=== PATIENT | male | born 1930 | race Caucasian/White ===

== ENCOUNTER → 2016-03-22 | Outpatient (CLI) | payer BC ==
[~2016-03-22] MED LIST: AGG PO; ANT25 PO; CALC500C70 PO; CHOL1000 PO; CHOL100010 PO; CLOP1TAB15 PO; COEN100C11 PO; COEN1CAP46 PO; CYAN100020 PO; DLC5 PO; EFIN1SOL TOP; FLV1 PO; FOLI1TAB7 PO; MRLP17 PO; OMEG10007 PO; OXYC-57 PO; PRAV10TA39 PO; PRAV20TA PO; PRAV20TA2 PO; TADA10TA PO; VTMB12 PO; ZFRI4 IV; [UNRECOGNIZED DRUG - CODE] IV
[2016-03-22 13:13] VITALS: BP 106/56; PULSE 53; TEMP 36.4; O2SAT 95
--- NOTE | 2016-03-22 16:01 | Radiation Oncology Follow-Up ---
Radiation Oncology Follow-Up Date of Visit Mar 22, 2016. Reason For Visit 6 month follow-up Radiation Completion Date finished IMRT / IGRT 12-15-2013 Diagnosis (1) Prostate cancer Status: Resolved Onset Date: 04/28/2013 Location: right lobe of the prostate Histology Subtype: adenocarcinoma Stage: ll (A biopsy stage) Permanent Comment: Finding of abnormal digital rectal exam, nodule on the right Active surveillance with slowly rising PSA Status post ultrasound-guided biopsy revealing adenocarcinoma Kelly 3+3 and 3+4 Hormonal suppression four-month injection given Status post completion of radiation therapy with IMRT/IGRT completed 12/15/2013 Last Edited By: Blanche Dhaliwal on July 16, 2014 13:14 History of Present Illness Mr. Tomas is a 85-year-old gentleman who had been under the care of Dr. Choi. Digital rectal exam has shown a palpable abnormality in the right side of the prostate. PSAs have been taken in the past. We have a PSA report from January 03, 2012 elevated at 5.43. This was repeated on July 01, 2012 and remained elevated at 4.76. The patient was treated with a course of prophylactic antibiotics and did respond with his PSA on July 11, 2012 decreasing to 3.61. This was repeated on October 13, 2012 at 3.78. The patient chose to continue with active surveillance. On January 27, 2013, however, a repeat PSA was increased to 5.52. With that subsequent rise, the patient was seen by Dr. Drew on March 25, 2013. His examination confirmed a nodule in the right lobe of the prostate. Because of these findings, a prostate biopsy was scheduled and carried out. On April 28, 2013 the patient underwent ultrasound-guided biopsies. Two biopsies were taken from the left and right base, left and right mid, and right apex with one biopsy from the left apex, left anterior, and right anterior. His estimated prostate volume was 40 grams. Biopsies from the left base, left mid, left apex, and left anterior were all benign. Biopsies from the right base were positive in 2/2 biopsies with Kelly Grade 3 + 4 involving 20% and 10% of the core tissue sample respectfully with a Kelly pattern 4 representing 5% of the total tumor volume. No perineural invasion was identified. Two of two biopsies from the right mid gland revealed an adenocarcinoma, Kelly Grade 3 + 4 involving 25% and 5% of the core tissue samples respectfully. The Kelly pattern 4 component was 5% with no perineural invasion identified. Two of two biopsies from the right apex revealed an adenocarcinoma, Kelly Grade 3 + 3 involving 20% and 5% of the core tissue samples respectfully with no perineural invasion identified. The right anterior biopsy was negative. A total of 6/13 biopsies were positive. Case [id number]. The patient returned to discuss these findings with Dr. Drew on May 05, 2013. Dr. Drew discussed potential treatment options. All options were reviewed And ultimately he made the decision to undergo treatment with IMRT/IGRT. There had been discussion of a protocol study but he did not qualify due to his inability to undergo a seed implant. He is on an aspirin daily and this could not be discontinued in order to have the implant. He therefore completed treatment with IMRT/IGRT. Interim History Past 6 months he developed problem with recurrent rectal bleeding. He was evaluated with a colonoscopy 06/28/2015. 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 On 2015 he underwent a resection of the terminal ileum as well as a right hemicolectomy. This showed a tubulovillous adenoma. This was benign. Specimen [id number]. He has continued to have occasional mild intermittent rectal bleeding. Bowel movements occur 3-4 times per day. He does have urgency of bowel movements. Overall he feels improved in regards to his energy levels since undergoing the surgery. He completed an AUA score sheet and gave a score of 6 today. He does not require any medication to help with urination. He does have erectile dysfunction and was given Cialis for daily use by Dr. Colmenares. He stated this is helping with the erectile dysfunction. His PSAs were reviewed. The PSA 06/30/2015 that was 0.116. He the PSA 2015 and that was 0.096. Allergies Coded Allergies: Simvastatin (Unverified Allergy, Unknown, MAJOR CRAMPING, 09/20/15) Rosuvastatin (Verified Adverse Reaction, Severe, SPASMS,CRAMPING,ALTERED MENTAL STATUS, 09/20/15) Aspirin (Verified Adverse Reaction, Mild, UNCOATED FULL-STR ASA-GI UPSET, 09/20/15) Home Medications Scheduled Calcium/Vitamin D (Os-Kapil 500 Plus D), 1 TAB PO QAM Cholecalciferol (Vitamin D), 2,000 INTER.UNIT PO QPM Clopidogrel (Plavix), 75 MG PO QAM Coenzyme Q10 (Ubidecarenone) (Coq-10 100 mg), 100 MG PO QPM Cyanocobalamin (Vitamin B12), 1 TAB PO QPM Efinaconazole (Jublia), 1 DOSE TOP PRN Fish Oil ([place]-3), 1 CAP PO QPM Folic Acid (Folvite *), 1 MG PO BID Pravastatin (Pravachol ), 20 MG PO Q2D Tadalafil (Cialis), 20 MG PO UD Review of Systems Gastrointestinal: Symptoms: Rectal Bleeding GI Comments: rectal bleeding every 2 - 3 days Oral: Symptoms: No Problems Respiratory: Symptoms: WNL Urinary: Symptoms: Nocturia Comments: nocturia times 1 - 2 , urgency Skin: Symptoms: No Problems Physical Exam Vital Signs Date Time Temp Pulse Resp B/P Pulse Ox O2 Delivery O2 Flow Rate FiO2 03/22/16 13:13 36.4 53 18 106/56 95 Pain: Side: Bilateral Patient Pain Scale: 0 - 10 Initial Pain Intensity: 0.0 Fatigue: None General Appearance: no apparent distress Eyes: normal inspection, EOMI ENT: normal ENT inspection, hearing grossly normal Neck: no adenopathy Respiratory/Chest: lungs clear, no respiratory distress, no accessory muscle use Cardiovascular: regular rate, rhythm, no gallop, no murmur Abdomen: normal bowel sounds, non tender, soft Anal / Rectum: Rectal examination reveals normal sphincter tone. There are external and internal hemorrhoids. There is no blood seen on the examination finger. There are no rectal masses no rectal bleeding. Extremities: no pedal edema Neurologic/Psychiatric: no motor/sensory deficits, alert, normal mood/affect Skin: warm/dry Laboratory Studies Test 02/14/16 08:25 Sodium Level 143 mmol/L (136-145) Potassium Level 4.2 mmol/L (3.5-5.1) Chloride Level 107 mmol/L (98-107) Carbon Dioxide Level 29 mmol/L (21-32) Anion Gap 7.0 mmol/L (3-11) Blood Urea Nitrogen 19 mg/dl (7-18) Creatinine 1.30 mg/dl (0.60-1.40) Estimated GFR () 58.5 Estimated GFR (Non- 50.5 BUN/Creatinine Ratio 14.9 (10-20) Random Glucose 99 mg/dl (70-99) Calcium Level 8.5 mg/dl (8.5-10.1) Total Bilirubin 0.7 mg/dl (0.2-1) Aspartate Amino Transferase (AST) 20 U/L (15-37) Alanine Aminotransferase (ALT) 22 U/L (12-78) Alkaline Phosphatase 63 U/L (45-117) Total Protein 6.4 gm/dl (6.4-8.2) Albumin 3.3 gm/dl (3.4-5.0) Globulin 3.1 gm/dl (2.5-4.0) Albumin/Globulin Ratio 1.1 (0.9-2) Triglycerides Level 98 mg/dl (0-150) Cholesterol Level 148 mg/dl (0-200) HDL Cholesterol 57 mg/dl LDL Cholesterol, Calculated 71 mg/dl VLDL Cholesterol, Calculated 20 mg/dl Cholesterol/HDL Ratio 2.6 Prostate Specific Antigen 0.096 ng/ml (0.000-4.000) Additional Studies The colonoscopy that was performed in June was reviewed with the patient and pictures were shown of the areas of radiation proctitis. Assessment & Plan Plan: We discussed options of treatment for the radiation proctitis. I've asked him first to take Metamucil on a regular basis to help prevent irritation to the areas of telangiectasis. He also should avoid seeds the diet and possibly nuts. He does not feel that currently he needs to to be referred for treatment to the radiation proctitis. We also discussed that should he have increased bleeding and urgency we could treat him with cortisone enemas. We also discussed that patients can be treated with argon laser therapy. He would like to do more research into consideration of these other modalities of treatment. Continue regular follow-up with Dr. Colmenares. He'll be seeing him in 6 months with a recheck PSA. Total Time In Follow-Up I spent 20 minutes speaking to the patient performing examination. I spent 15 minutes reviewing information in completing this note. Copy To Rosalba Graham DO; Raheem Colmenares M.D.; José Miguel Reza M.D.
== END | disposition home or self-care (01) ==
LOC: C.ONC 12:57
PROVIDERS: ATTEND Radiology Radiation Oncology
DX: Z08 Encounter for follow-up examination after completed treatment for malignant neoplasm (principal); Z92.3 Personal history of irradiation; Z85.46 Personal history of malignant neoplasm of prostate

== ENCOUNTER → 2016-04-05 | Outpatient (CLI) | payer BC ==
[~2016-04-05] MED LIST changes: -OXYC-57 PO; -PRAV10TA39 PO
[2016-04-05 11:58] LABS: URINE APPEARANCE CLEAR (CLEAR); URINE BILIRUBIN NEG (NEG); URINE COLOR YELLOW; URINE NITRITE NEG (NEG); URINE SPECIFIC GRAVITY 1.018 (1.000-1.030); UROBILINOGEN NEG (NEG)
[2016-04-05 12:11] LABS: MANUAL MICROSCOPIC REQUIRED? NO; REVIEW REQ? NO
== END | disposition home or self-care (01) ==
LOC: C.LABSPEC 11:09
PROVIDERS: ATTEND Family Medicine
DX: R86.8 Other abnormal findings in specimens from male genital organs (principal)

== ENCOUNTER → 2016-08-09 | Outpatient (CLI) | payer BC | END | disposition home or self-care (01) | LOC: C.LABBC 09:05 | PROVIDERS: ATTEND Urology | DX: C61 Malignant neoplasm of prostate (principal); N52.9 Male erectile dysfunction, unspecified ==

== ENCOUNTER → 2016-08-29 | Day surgery (SDC) | payer BC ==
[2016-08-17 09:12] VITALS: Ht 168.9 cm; Wt 72.7 kg
[~2016-08-29] VITALS: Ht 168.9 cm; Wt 72.7 kg
[~2016-08-29] MED LIST changes: -CHOL100010 PO; +GLYCOPYRROLATE INJ 0.2 MG/ML VIAL ONE; +PROPOFOL IV EMULSION 10 MG/ML 20 ML VIAL IV ONE; +SODIUM CHLORIDE 0.9% 500ML 500 ML IV ONE
--- NOTE | 2016-08-29 15:43 | Endo History and Physical ---
History & Physical Date of Service: Aug 29, 2016. Chief Complaint: History of tubular adenoma, Referring Physician: Rosalba Carnes History of Present Illness 85 yo CM who presents for colonoscopy secondary to history of colon polyps. Past Medical History Angioplasty/Stent, Arthritis, Male Genitourinary Prob., [place] Past Surgical History Hx Cardiac Surgery: Yes (HEART CATH-2 STENTS PLACED) Hx Internal Defibrillator: No Hx Pacemaker: No Hx Abdominal Surgery: Yes (APPY, COLON RESECTION) Hx of Implantable Prosthesis: No Hx Post-Op Nausea and Vomiting: No Hx Cancer Surgery: No ( ) Hx Thoracic Surgery: No Hx Orthopedic: Yes (L SHOULDER REPAIR, RT RCR, RT KNEE SURG X3, RT TKA) Hx Urinary Tract Surgery: No Family History None Social History Smoking Status: Never Smoker Hx Substance Use: No Hx Alcohol Use: Yes (1 GLASS OF WINE DAILY) Allergies Coded Allergies: Simvastatin (Verified Allergy, Unknown, MAJOR CRAMPING, 08/29/16) Rosuvastatin (Verified Adverse Reaction, Severe, SPASMS,CRAMPING,ALTERED MENTAL STATUS, 08/17/16) Aspirin (Verified Adverse Reaction, Mild, UNCOATED FULL-STR ASA-GI UPSET, 08/17/16) Current Medications Reported Home Medications Medications Dose Route/Sig Max Daily Dose Days Date Category Vitamin D3 (Cholecalciferol) 1,000 Unit Tab 1 Tab PO QPM 90 08/17/16 Reported Cialis (Tadalafil) 10 Mg Tab 20 Mg PO UD 03/22/16 Reported Pravachol (Pravastatin Sodium) 20 Mg Tab 20 Mg PO Q2D 03/22/16 Reported Jublia (Efinaconazole) 10 % Veronica 1 Dose TOP PRN 08/19/15 Reported Vitamin B12 (Cyanocobalamin) 1,000 Mcg Tab 1 Tab PO QPM 06/28/15 Reported Coq-10 100 mg (Coenzyme Q10 (Ubidecarenone)) 1 Cap Cap 100 Mg PO QPM 04/16/14 Reported [place]-3 (Fish Oil) 1 Ea Cap 1 Cap PO QPM 04/16/14 Reported Os-Kapil 500 Plus D (Calcium/Vitamin D) Tab 1 Tab PO QAM 04/16/14 Reported Folvite * (Folic Acid) 1 Mg Tab 1 Mg PO BID 09/23/09 Reported Plavix (Clopidogrel Bisulfate) 75 Mg Tab 75 Mg PO QAM 09/23/09 Reported Vital Signs Weight (Kilograms): 72.73 Height (Feet): 5 Height (Inches): 6.5 Date Time Temp Pulse Resp B/P (MAP) Pulse Ox O2 Delivery O2 Flow Rate FiO2 08/29/16 15:06 36.6 63 16 143/67 (92) 98 Room Air Physical Exam General Appearance: WD/WN, no apparent distress Respiratory/Chest: Auscultation: breath sounds normal Cardiovascular: Heart Auscultation: RRR Abdomen: Bowel Sounds: normal Inspection & Palpation: soft, non-distended, no tenderness, guarding & rebound Assessment and Plan Assessment: 85 yo CM who presents for colonoscopy secondary to history of colon polyps. Plan: Proceed with colonoscopy.
--- NOTE | 2016-08-29 16:03 | Discharge Instructions ---
Endoscopy Patient Instructions Date / Procedure(s) Performed Aug 29, 2016. Colonoscopy Allergy Information Coded Allergies: Simvastatin (Verified Allergy, Unknown, MAJOR CRAMPING, 08/29/16) Rosuvastatin (Verified Adverse Reaction, Severe, SPASMS,CRAMPING,ALTERED MENTAL STATUS, 08/17/16) Aspirin (Verified Adverse Reaction, Mild, UNCOATED FULL-STR ASA-GI UPSET, 08/17/16) Discharge Date / Findings Aug 29, 2016. Internal hemorrhoids Radiation proctitis Medication Instructions Stopped Medication(s): Plavix last 08/25 OK to resume all medications today as prescribed Medications Dose Route/Sig Max Daily Dose Days Date Category Vitamin D3 (Cholecalciferol) 1,000 Unit Tab 1 Tab PO QPM 90 08/17/16 Reported Cialis (Tadalafil) 10 Mg Tab 20 Mg PO UD 03/22/16 Reported Pravachol (Pravastatin Sodium) 20 Mg Tab 20 Mg PO Q2D 03/22/16 Reported Jublia (Efinaconazole) 10 % Veronica 1 Dose TOP PRN 08/19/15 Reported Vitamin B12 (Cyanocobalamin) 1,000 Mcg Tab 1 Tab PO QPM 06/28/15 Reported Coq-10 100 mg (Coenzyme Q10 (Ubidecarenone)) 1 Cap Cap 100 Mg PO QPM 04/16/14 Reported [place]-3 (Fish Oil) 1 Ea Cap 1 Cap PO QPM 04/16/14 Reported Os-Kapil 500 Plus D (Calcium/Vitamin D) Tab 1 Tab PO QAM 04/16/14 Reported Folvite * (Folic Acid) 1 Mg Tab 1 Mg PO BID 09/23/09 Reported Plavix (Clopidogrel Bisulfate) 75 Mg Tab 75 Mg PO QAM 09/23/09 Reported Provider Instructions Activity Restrictions - No exercising or heavy lifting for 24 hours. - Do not drink alcohol the day of the procedure. - Do not drive a car or operate machinery until the day after the procedure. - Do not make any important decisions or sign important papers in 24 hours after the procedure. Following Day: - Return to full activity which may include returning to work/school. Diet Start your diet with liquids and light foods (jello, soup, juice, toast). Then eat your usual diet if not nauseated. Treatment For Common After Affects For mild abdominal pain, bloating, or excessive gas: - Rest - Eat lightly - Lie on right side Follow-Up Information Follow-up with Rosalba Carnes as scheduled Anesthesia Information What You Should Know You have had a procedure that required some medicine to reduce anxiety and discomfort. This treatment is called moderate sedation. After receiving the treatment, you may be sleepy, but you will be able to breathe on your own. The effects of the treatment may last for several hours. Follow these instructions along with Activity/Diet recommendations noted above: * Do NOT do anything where dizziness or clumsiness would be dangerous. * Rest quietly at home today, then you can be up and about tomorrow. * Have a responsible person stay with you the rest of today. * You may have had an I.V. today. If so, you may take the dressing off later today. Recommendations Call your doctor if: * Trouble breathing * Continuous vomiting for more than 24 hours * Temperature above 101 degrees * Severe abdominal pain or bloating * Pain not relieved by pain medicine ordered * There is increased drainage or redness from any incision * A large amount of rectal bleeding greater than 2-3 tablespoons. (If you had a polyp/s removed or have hemorrhoids, a small amount of blood - from the rectum is to be expected.) * You have any unanswered questions or concerns. IN THE EVENT OF A SERIOUS EMERGENCY, GO TO THE NEAREST EMERGENCY ROOM Your discharge instructions were prepared by provider Red Thomas. Patient Instructions Signature Page Carlos Tomas Patient (or Guardian) Signature/Date: I have read and understand the instructions given to me by my caregivers. Caregiver/RN/Doctor Signature/Date: The above-named patient and/or guardian has received patient instructions on this date. + Original Patient Signature Page (only) stays with chart. Please make copy for patient.
--- NOTE | 2016-08-29 16:11 | Anesthesiology Progress Note ---
Anesthesia Post Op Note Date & Time Aug 29, 2016 at 16:11 Vital Signs Pain Intensity: 0 Vital Signs Past 12 Hours Date Time Temp Pulse Resp B/P (MAP) Pulse Ox O2 Delivery O2 Flow Rate FiO2 08/29/16 16:06 36.6 60 16 101/56 (71) 94 Room Air 08/29/16 15:06 36.6 63 16 143/67 (92) 98 Room Air Notes Mental Status: alert / awake / arousable, participated in evaluation Pt Amnestic to Procedure: Yes Nausea / Vomiting: adequately controlled Pain: adequately controlled Airway Patency, RR, SpO2: stable & adequate BP & HR: stable & adequate Hydration State: stable & adequate Anesthetic Complications: no major complications apparent
--- NOTE | 2016-08-29 16:12 | GI REPORT ---
Procedure Date: 08/29/2016 3:20 PM Procedure: Colonoscopy Indications: High risk colon cancer surveillance: Personal history of colonic polyps Medicines: Monitored Anesthesia Care Complications: No immediate complications. Estimated Blood Loss: Estimated blood loss: none. Procedure: Pre-Anesthesia Assessment: - Prior to the procedure, a History and Physical was performed, and patient medications and allergies were reviewed. The patient's tolerance of previous anesthesia was also reviewed. The risks and benefits of the procedure and the sedation options and risks were discussed with the patient. All questions were answered, and informed consent was obtained. Prior Anticoagulants: The patient has taken Plavix (clopidogrel), last dose was 4 days prior to procedure. ASA Grade Assessment: III - A patient with severe systemic disease. After reviewing the risks and benefits, the patient was deemed in satisfactory condition to undergo the procedure. After I obtained informed consent, the scope was passed under direct vision. Throughout the procedure, the patient's blood pressure, pulse, and oxygen saturations were monitored continuously. The Scope was introduced through the anus and advanced to the ileocolonic anastomosis. The colonoscopy was performed without difficulty. The patient tolerated the procedure well. The quality of the bowel preparation was good. The terminal ileum, ileocecal valve, appendiceal orifice, and rectum were photographed. Findings: There was evidence of a prior end-to-side ileo-colonic anastomosis in the cecum. This was patent and was characterized by healthy appearing mucosa. The anastomosis was traversed. Multiple small localized angiodysplastic lesions without bleeding were found in the rectum, consistent with radiation induced proctitis. Non-bleeding internal hemorrhoids were found during retroflexion. The hemorrhoids were small. Impression: - Patent end-to-side ileo-colonic anastomosis, characterized by healthy appearing mucosa. - Multiple non-bleeding colonic angiodysplastic lesions, consistent with radiation proctitis. - Non-bleeding internal hemorrhoids. - No specimens collected. Recommendation: - Resume previous diet. - Continue present medications. - Return to primary care physician as previously scheduled. Red Thomas DO 08/29/2016 4:12:14 PM This report has been signed electronically. Note Initiated On: 08/29/2016 3:20 PM I attest to the content of the Intraoperative Record and orders documented therein, exceptions below
[2016-08-29 16:36] VITALS: BP 125/67; PULSE 62; O2SAT 95
== END | disposition home or self-care (01) ==
LOC: C.GI 14:19
PROVIDERS: ATTEND Internal Medicine
DX: Z12.11 Encounter for screening for malignant neoplasm of colon (principal); Z86.010 Personal history of colon polyps; K55.20 Angiodysplasia of colon without hemorrhage; Z98.0 Intestinal bypass and anastomosis status; K64.8 Other hemorrhoids; I25.2 Old myocardial infarction; Z95.5 Presence of coronary angioplasty implant and graft; Z79.899 Other long term (current) drug therapy; Z79.02 Long term (current) use of antithrombotics/antiplatelets

== ENCOUNTER 2016-09-24 14:20 | Inpatient (IN) | payer BC, OTHER ==
[~2016-09-24] VITALS: Ht 167.6 cm; Wt 73.5 kg
[~2016-09-24 14:20] MED LIST changes: -AGG PO; -ANT25 PO; -COEN100C11 PO; -DLC5 PO; -FOLI1TAB7 PO; -GLYCOPYRROLATE INJ 0.2 MG/ML VIAL ONE; -MRLP17 PO; -PRAV20TA2 PO; -PROPOFOL IV EMULSION 10 MG/ML 20 ML VIAL IV ONE; -SODIUM CHLORIDE 0.9% 500ML 500 ML IV ONE; -VTMB12 PO; -ZFRI4 IV; -[UNRECOGNIZED DRUG - CODE] IV
--- NOTE | 2016-09-24 15:25 | EMERGENCY ROOM VISIT NOTE ---
History First contact with patient: 14:30 Chief Complaint: VERTIGO Stated Complaint: SLIGHT MARTINEZ, VERTIGO History of Present Illness The patient is a 86 year old male with hx OR s/p stenting LAD(2004)who presents to the Emergency Room with complaints of suspected vertigo. Last week, patient went to PCP for reji cerumen impaction. Attempt was made to irrigate but was unsuccessful so patient was sent to ENT who successfully irrigated both ears the following day and was placed on ofloxacin drops. 2 days ago, patient reported vertigo , described as sensation of room spinning, N/V diaphoresis, clammy feeling, and double vision. He denies MARTINEZ, numbness, weakness, tingling. Vertigo persisted into the next day, and patient went to [facility] where he was sent home on ondansetron for N/V which was helpful. He denies previous similar symptoms of vertigo. He denies hx of CVA. He denies any associated tinnitus, hearing loss. Review of Systems Pt denies headache, change in vision, fevers, chest pain, shortness of breath, diarrhea, pain with urination, and melena. Past Medical/Surgical History Medical Problems: (1) Colon polyp (2) Myocardial infarction (3) Prostate cancer Surgical Problems: (1) History of appendectomy Family History Heart disease Social History Smoking Status: Never Smoker Alcohol Use: occasionally Marital Status: Housing Status: lives with significant other Occupation Status: retired Current/Historical Medications Scheduled Calcium/Vitamin D (Os-Kapil 500 Plus D), 1 TAB PO QAM Cholecalciferol (Vitamin D3), 1,000 UNITS PO QPM Clopidogrel (Plavix), 75 MG PO QAM Coenzyme Q10 (Ubidecarenone) (Coq-10 100 mg), 100 MG PO QPM Cyanocobalamin (Vitamin B12), 1,000 MCG PO QPM Efinaconazole (Jublia), 1 DOSE TOP PRN Fish Oil ([place]-3), 1 CAP PO QPM Folic Acid (Folvite), 1 MG PO BID Pravastatin (Pravachol ), 20 MG PO Q2D Allergies Coded Allergies: Simvastatin (Verified Allergy, Unknown, MAJOR CRAMPING, 08/29/16) Rosuvastatin (Verified Adverse Reaction, Severe, SPASMS,CRAMPING,ALTERED MENTAL STATUS, 08/17/16) Aspirin (Verified Adverse Reaction, Mild, UNCOATED FULL-STR ASA-GI UPSET, 08/17/16) Physical Exam Vital Signs Date Time Temp Pulse Resp B/P (MAP) Pulse Ox O2 Delivery O2 Flow Rate FiO2 09/24/16 16:33 51 17 134/64 98 Room Air 09/24/16 15:50 47 09/24/16 14:26 36.7 63 20 131/76 94 Room Air Physical Exam GENERAL: alert, well appearing, well nourished, no distress, non-toxic EYE EXAM: normal conjunctiva, PERRL and EOM's grossly intact OROPHARYNX: no exudate, no erythema, lips, buccal mucosa, and tongue normal and mucous membranes are moist NECK: supple, no nuchal rigidity, no adenopathy, non-tender LUNGS: Clear to auscultation. Normal chest wall mechanics HEART: no murmurs, S1 normal and S2 normal ABDOMEN: abdomen soft, non-tender, normo-active bowel sounds, no masses, no rebound or guarding. BACK: Back is symmetrical on inspection and there is no deformity, no midline tenderness, no CVA tenderness. SKIN: no rashes and no bruising UPPER EXTREMITIES: upper extremities are grossly normal. LOWER EXTREMITIES: No pitting edema. NEUROLOGICAL: Gait: steady coordinated gait Rhomberg: negative Rapid alternating movements: normal Cranial nerves: II-XII intact cranial nerves II-XII intact. Sensation: intact and symmetric at upper and lower extremities bilaterally Strength: intact and symmetric at upper and lower extremities bilaterally Reflexes: Right Patella: 3+ (hyperactive without clonus). Left Patella: 3+ (hyperactive without clonus). Babinski: negative Keysha Hallpike Negative Medical Decision & Procedures Laboratory Results 09/24/16 15:07 Red Blood Count 4.80, Mean Corpuscular Volume 98.5, Mean Corpuscular Hemoglobin 34.2, Mean Corpuscular Hemoglobin Concent 34.7, Mean Platelet Volume 9.1, Neutrophils (%) (Auto) 75.2, Lymphocytes (%) (Auto) 15.2, Monocytes (%) (Auto) 8.6, Eosinophils (%) (Auto) 0.6, Basophils (%) (Auto) 0.2, Neutrophils # (Auto) 4.70, Lymphocytes # (Auto) 0.95, Monocytes # (Auto) 0.54, Eosinophils # (Auto) 0.04, Basophils # (Auto) 0.01 09/24/16 15:07 Test 09/24/16 15:07 White Blood Count 6.25 K/uL (4.8-10.8) Red Blood Count 4.80 M/uL (4.7-6.1) Hemoglobin 16.4 g/dL (14.0-18.0) Hematocrit 47.3 % (42-52) Mean Corpuscular Volume 98.5 fL (80-100) Mean Corpuscular Hemoglobin 34.2 pg (25-34) Mean Corpuscular Hemoglobin Concent 34.7 g/dl (32-36) Platelet Count 228 K/uL (130-400) Mean Platelet Volume 9.1 fL (7.4-10.4) Neutrophils (%) (Auto) 75.2 % Lymphocytes (%) (Auto) 15.2 % Monocytes (%) (Auto) 8.6 % Eosinophils (%) (Auto) 0.6 % Basophils (%) (Auto) 0.2 % Neutrophils # (Auto) 4.70 K/uL (1.4-6.5) Lymphocytes # (Auto) 0.95 K/uL (1.2-3.4) Monocytes # (Auto) 0.54 K/uL (0.11-0.59) Eosinophils # (Auto) 0.04 K/uL (0-0.5) Basophils # (Auto) 0.01 K/uL (0-0.2) RDW Standard Deviation 46.9 fL (36.4-46.3) RDW Coefficient of Variation 13.0 % (11.5-14.5) Immature Granulocyte % (Auto) 0.2 % Immature Granulocyte # (Auto) 0.01 K/uL (0.00-0.02) Anion Gap 6.0 mmol/L (3-11) Est Creatinine Clear Calc Drug Dose 35.4 ml/min Estimated GFR () 53.1 Estimated GFR (Non- 45.8 BUN/Creatinine Ratio 10.2 (10-20) Calcium Level 8.9 mg/dl (8.5-10.1) Total Bilirubin 0.7 mg/dl (0.2-1) Aspartate Amino Transf (AST/SGOT) 18 U/L (15-37) Alanine Aminotransferase (ALT/SGPT) 26 U/L (12-78) Alkaline Phosphatase 61 U/L (45-117) Total Protein 7.0 gm/dl (6.4-8.2) Albumin 3.7 gm/dl (3.4-5.0) Globulin 3.3 gm/dl (2.5-4.0) Albumin/Globulin Ratio 1.1 (0.9-2) Medical Decision This is an 86 yo M w/ hx of OR (2004), on Plavix presenting with 2 day Hx vertigo and N/V, double vision following irrigation for cerumen impaction , [place] p[place] neg. with CT head positive for L Cerebellar infarct. EKG: sinus bradycardia CT Head: 4.4 cm subacute Left Cerebellar infarct CBC: unremarkable BMP: unremarkable I discussed case with hospitalist, Dr. Zabala who agreed with admission. Impression Primary Impression: CVA (cerebral vascular accident) Additional Impression: Vertigo Departure Information Dispostion Home / Self-Care Condition GOOD Referrals Rafita Pastrana III, CRNP (PCP) Patient Instructions My [facility] Problem Qualifiers Primary Impression: CVA (cerebral vascular accident) Precerebral and cerebral artery: posterior cerebral artery Laterality of affected vessel: left
--- NOTE | 2016-09-24 15:29 | EMERGENCY ROOM VISIT NOTE ---
History Report prepared by Bear: Rivas Low Under the Supervision of: Dr. Patrick Blum M.D. First contact with patient: 14:30 Chief Complaint: VERTIGO Stated Complaint: SLIGHT MARTINEZ, VERTIGO History of Present Illness The patient is a 86 year old male who presents to the Emergency Room with complaints of persistent dizziness beginning two days ago. He believes he likely has vertigo. He was seen by his PCP last week and then by ENT for bilateral cerumen impactions. The patient describes his dizziness as "spinning" . He also complains of nausea, vomiting, and sweating. He has a history of similar symptoms many years ago. The patient denies any headache, chest pain or hearing changes. He was seen at [facility] yesterday and given nausea meds. He is on Plavix. The patient has a history of NV and states that his sweatiness reminded him of his previous NV. Source of History: patient Onset: Two days ago Quality: other (dizziness) Timing: other (persistent) Associated Symptoms: + nausea, + vomiting, No headache Note: The patient also complains of sweating. He denies any hearing changes. Review of Systems See HPI for pertinent positives & negatives. A total of 10 systems reviewed and were otherwise negative. Past Medical & Surgical Medical Problems: (1) Colon polyp (2) Myocardial infarction (3) Prostate cancer Surgical Problems: (1) History of appendectomy Family History Heart disease Social History Smoking Status: Never Smoker Alcohol Use: occasionally Marital Status: Housing Status: lives with significant other Occupation Status: retired Current/Historical Medications Scheduled Calcium/Vitamin D (Os-Kapil 500 Plus D), 1 TAB PO QAM Cholecalciferol (Vitamin D3), 1,000 UNITS PO QPM Clopidogrel (Plavix), 75 MG PO QAM Coenzyme Q10 (Ubidecarenone) (Coq-10 100 mg), 100 MG PO QPM Cyanocobalamin (Vitamin B12), 1,000 MCG PO QPM Efinaconazole (Jublia), 1 DOSE TOP PRN Fish Oil ([place]-3), 1 CAP PO QPM Folic Acid (Folvite), 1 MG PO BID Pravastatin (Pravachol ), 20 MG PO Q2D Allergies Coded Allergies: Simvastatin (Verified Allergy, Unknown, MAJOR CRAMPING, 08/29/16) Rosuvastatin (Verified Adverse Reaction, Severe, SPASMS,CRAMPING,ALTERED MENTAL STATUS, 08/17/16) Aspirin (Verified Adverse Reaction, Mild, UNCOATED FULL-STR ASA-GI UPSET, 08/17/16) Physical Exam Vital Signs Date Time Temp Pulse Resp B/P (MAP) Pulse Ox O2 Delivery O2 Flow Rate FiO2 09/24/16 15:50 47 09/24/16 14:26 36.7 63 20 131/76 94 Room Air Physical Exam GENERAL: Patient is in no acute distress. HEENT: No acute trauma, normocephalic atraumatic, mucous membranes moist, no nasal congestion, no scleral icterus. TMs clear bilaterally. NECK: No stridor, no adenopathy, no meningismus, trachea is midline. LUNGS: Clear to auscultation bilaterally, no wheeze, no rhonchi, breath sounds equal. HEART: Without murmurs gallops or rubs, regular rate and rhythm. ABDOMEN: Soft, nontender, bowel sounds positive, no hernias, no peritonitis. EXTREMITIES: No cyanosis or edema, full range of motion of all the joints without pain or difficulty, no signs for acute trauma. NEUROLOGIC: Oriented x 3, no acute motor or sensory deficits, no focal weakness. No pronator drift or cerebellar dysfunction. Normal gait. No speech slur or facial droop. SKIN: No rash, no jaundice, no diaphoresis. Medical Decision & Procedures ER Provider Diagnostic Interpretation: CT results as stated below per my review and radiologist interpretation: CT HEAD WITHOUT CONTRAST (CT) FINDINGS: There is a moderate to large subacute left cerebellar infarct. There is no midline shift. There is no acute hemorrhage. There are minimal white matter hypodensities likely on a small vessel basis. There is no evidence of pathologic ventricular dilatation. There is no evidence of acute sinusitis IMPRESSION: 4.4 cm subacute left cerebellar infarct. Electronically signed by: Trip Roach M.D. Laboratory Results 09/24/16 15:07 Red Blood Count 4.80, Mean Corpuscular Volume 98.5, Mean Corpuscular Hemoglobin 34.2, Mean Corpuscular Hemoglobin Concent 34.7, Mean Platelet Volume 9.1, Neutrophils (%) (Auto) 75.2, Lymphocytes (%) (Auto) 15.2, Monocytes (%) (Auto) 8.6, Eosinophils (%) (Auto) 0.6, Basophils (%) (Auto) 0.2, Neutrophils # (Auto) 4.70, Lymphocytes # (Auto) 0.95, Monocytes # (Auto) 0.54, Eosinophils # (Auto) 0.04, Basophils # (Auto) 0.01 09/24/16 15:07 Test 09/24/16 15:07 White Blood Count 6.25 K/uL (4.8-10.8) Red Blood Count 4.80 M/uL (4.7-6.1) Hemoglobin 16.4 g/dL (14.0-18.0) Hematocrit 47.3 % (42-52) Mean Corpuscular Volume 98.5 fL (80-100) Mean Corpuscular Hemoglobin 34.2 pg (25-34) Mean Corpuscular Hemoglobin Concent 34.7 g/dl (32-36) Platelet Count 228 K/uL (130-400) Mean Platelet Volume 9.1 fL (7.4-10.4) Neutrophils (%) (Auto) 75.2 % Lymphocytes (%) (Auto) 15.2 % Monocytes (%) (Auto) 8.6 % Eosinophils (%) (Auto) 0.6 % Basophils (%) (Auto) 0.2 % Neutrophils # (Auto) 4.70 K/uL (1.4-6.5) Lymphocytes # (Auto) 0.95 K/uL (1.2-3.4) Monocytes # (Auto) 0.54 K/uL (0.11-0.59) Eosinophils # (Auto) 0.04 K/uL (0-0.5) Basophils # (Auto) 0.01 K/uL (0-0.2) RDW Standard Deviation 46.9 fL (36.4-46.3) RDW Coefficient of Variation 13.0 % (11.5-14.5) Immature Granulocyte % (Auto) 0.2 % Immature Granulocyte # (Auto) 0.01 K/uL (0.00-0.02) Anion Gap 6.0 mmol/L (3-11) Est Creatinine Clear Calc Drug Dose 35.4 ml/min Estimated GFR () 53.1 Estimated GFR (Non- 45.8 BUN/Creatinine Ratio 10.2 (10-20) Calcium Level 8.9 mg/dl (8.5-10.1) Total Bilirubin 0.7 mg/dl (0.2-1) Aspartate Amino Transf (AST/SGOT) 18 U/L (15-37) Alanine Aminotransferase (ALT/SGPT) 26 U/L (12-78) Alkaline Phosphatase 61 U/L (45-117) Total Protein 7.0 gm/dl (6.4-8.2) Albumin 3.7 gm/dl (3.4-5.0) Globulin 3.3 gm/dl (2.5-4.0) Albumin/Globulin Ratio 1.1 (0.9-2) Laboratory results reviewed by me. ECG Indication: other (dizziness) Rate (beats per minute): 45 Rhythm: sinus bradycardia Findings: no acute ischemic change, no ectopy ED Course 1433: The patient was evaluated in room A2. A complete history and physical exam was performed. Medical Decision The patient is a 86 year old male who presents to the ED with complaints of dizziness. Differential diagnoses considered include vertigo, anemia, ICH, electrolyte imbalance, and CVA. Blood pressure screening: Patient was found to have a slightly elevated blood pressure due to circumstances. I do not believe that the patient requires hypertension monitoring. Medication Reconciliation: I attest that I have personally reviewed the patient' s current medication list. There is no leukocytosis or concerning anemia. No significant electrolyte abnormality, kidney failure or hepatitis. EKG shows a sinus bradycardia, no acute ischemia. Brain CT shows a subacute infarct to the cerebellar portion of the brain. No acute bleed or mass effect. The patient presents to the emergency room with dizziness/vertigo. On exam, there were no focal neurologic deficits. Brain imaging does suggest a subacute CVA. The patient is not a candidate for TPA, he is far out of the window. Admission/observation is warranted. We did speak to the case assistant and the on-call hospitalist. The patient is aware of his findings. Consults Time Called: 1553 Consulting Physician: Dr. Sagrario RODRIGUEZ Returned Call: [phone] Discussed the patient's case. The patient will be evaluated for further management. Impression Primary Impression: CVA (cerebral vascular accident) Scribe Attestation The scribe's documentation has been prepared under my direction and personally reviewed by me in its entirety. I confirm that the note above accurately reflects all work, treatment, procedures, and medical decision making performed by me. Departure Information Dispostion Being Evaluated By Hospitalist Referrals Rafita Pastrana III, CRNP (PCP) Patient Instructions My [facility] Stroke History Time Last Known Well two days ago Stroke t-PA Criteria Reviewed Does NOT meet criteria for t-PA Reason t-PA Not Given Contraindicated
[2016-09-24 15:37] LABS: BASO % 0.2 %; BASO ABS # 0.01 K/uL (0-0.2); COMPLETE YES; EOS % 0.6 %; HEMATOCRIT 47.3 % (42-52); IG% 0.2 %; LYMPH % 15.2 %; LYMPH ABS # 0.95 K/uL (1.2-3.4); MEAN CELL VOLUME 98.5 fL (80-100); MEAN CORPUSCULAR HEMOGLOBIN 34.2 pg (25-34); MEAN CORPUSCULAR HGB CONC 34.7 g/dl (32-36); MEAN PLATELET VOLUME 9.1 fL (7.4-10.4); MONO % 8.6 %; NEUT % 75.2 %; PLATELET COUNT 228 K/uL (130-400); WHITE BLOOD COUNT 6.25 K/uL (4.8-10.8)
--- NOTE | 2016-09-24 15:39 | DIAGNOSTIC IMAGING REPORT ---
CT HEAD WITHOUT CONTRAST (CT) CLINICAL HISTORY: vertigo COMPARISON STUDY: 05/06/2014 TECHNIQUE: Axial CT of the brain is performed from the vertex to the skull base. IV contrast was not administered for this examination. CT DOSE: 1600.80 mGycm FINDINGS: There is a moderate to large subacute left cerebellar infarct. There is no midline shift. There is no acute hemorrhage. There are minimal white matter hypodensities likely on a small vessel basis. There is no evidence of pathologic ventricular dilatation. There is no evidence of acute sinusitis IMPRESSION: 4.4 cm subacute left cerebellar infarct. Electronically signed by: Trip Roach M.D. 09/24/2016 3:38 PM Dictated Date/Time: 09/24/2016 3:36 PM
[2016-09-24 15:48] LABS: BUN/CREATININE RATIO 10.2 (10-20); CALCIUM 8.9 mg/dl (8.5-10.1); CREATININE 1.4 mg/dl (0.60-1.40); POTASSIUM 4.1 mmol/L (3.5-5.1)
[2016-09-24 15:50] LABS: ALB/GLOB RATIO 1.1 (0.9-2)
[2016-09-24] MEDS ORDERED: FOLI1TAB7 PO (16:04)
--- NOTE | 2016-09-24 17:24 | History and Physical ---
History & Physical Date & Time of Service: Sep 24, 2016 at 17:17 Chief Complaint: Slight Martinez, Vertigo Primary Care Physician: Rafita Pastrana III, CRNP History of Present Illness Source: patient This is a 86 yo M with PMHx of CAD s/p MT, prostate cancer s/p XRT x 2 cycles in 2013 s/p Lupron therapy, radiation prostatitis, status post R radical colectomy with with ileocecal anastomosis for adhesions, and tubulovillous adenoma of the colon, radiation proctitis and hyperhomocystinemia who presents to the ED found to have a left cerebellar subacute infarct. The patient notes that approximately one week ago had a right ear fullness for which he saw his PCP, and was found to have cerumen impaction which was irrigated in the office. The patient continued to have aural fullness so was referred to ENT where he underwent cerumen removal via suction. He reports that they noted some possible trauma to the eardrum. On Saturday the patient started to feel ill, and thought that he had food poisoning as he was feeling nauseous and vomited. He also experienced a 30 minutes of bilateral blurred vision, which then resolved. He denies double vision or loss of a visual field. He notes that when walking there was a "left-sided pull", and felt motion sick when he attempted to walk. He remained in bed and did not seek medical attention at this time. On Saturday morning patient reports his balance and ability to walk straight was improved, he had no blurred vision, but only felt minimally better. He presented to a [facility] and was referred to the ER. He drove himself to the ER today as his balance was not affected. The last time the patient Plavix was on Saturday. He notes that he takes pravastatin every other day due to severe muscle cramping. CT was completed in the ER showing a 4.4 cm subacute cerebellar infarct. His vital signs are stable with blood pressure 134/64, heart rate = 51, afebrile. Labs are WNL. Past Medical/Surgical History Medical Problems: (1) Myocardial infarction Status: Resolved Left subacute cerebellar infarct Right radical colectomy and leocecal anastomosis Tubulovillous adenoma (2) Prostate cancer Permanent Comment: Finding of abnormal digital rectal exam, nodule on the right Active surveillance with slowly rising PSA Status post ultrasound-guided biopsy revealing adenocarcinoma Kelly 3+3 and 3+4 Hormonal suppression four-month injection given Status post completion of radiation therapy with IMRT/IGRT completed 12/15/2013 Status: Resolved Surgical Problems: (1) History of appendectomy Status: Resolved Family History Heart disease Social History Smoking Status: Never Smoker Smokeless Tobacco Use: Yes Alcohol Use: none Marital Status: Housing status: lives with family Occupational Status: retired Immunizations History of Influenza Vaccine: Yes History of Tetanus Vaccine?: Yes History of Pneumococcal: No History of Hepatitis B Vaccine: Yes Multi-Drug Resistant Organisms History of MDRO: No Allergies Coded Allergies: Simvastatin (Verified Allergy, Unknown, MAJOR CRAMPING, 08/29/16) Rosuvastatin (Verified Adverse Reaction, Severe, SPASMS,CRAMPING,ALTERED MENTAL STATUS, 08/17/16) Aspirin (Verified Adverse Reaction, Mild, UNCOATED FULL-STR ASA-GI UPSET, 08/17/16) Home Medications Scheduled Calcium/Vitamin D (Os-Kapil 500 Plus D), 1 TAB PO QAM Cholecalciferol (Vitamin D3), 1,000 UNITS PO QPM Clopidogrel (Plavix), 75 MG PO QAM Coenzyme Q10 (Ubidecarenone) (Coq-10 100 mg), 100 MG PO QPM Cyanocobalamin (Vitamin B12), 1,000 MCG PO QPM Efinaconazole (Jublia), 1 DOSE TOP PRN Fish Oil (Clarkridge-3), 1 CAP PO QPM Folic Acid (Folvite), 1 MG PO BID Pravastatin (Pravachol ), 20 MG PO Q2D Review of Systems Constitutional: No fever, sweats or chills Eyes: See history of present illness ENT: normal hearing, no trouble swallowing Respiratory: No cough, sputum, dyspnea at rest or on exertion Cardiovascular: No chest pain, tightness or palpitations Abdomen: No pain, nausea, vomiting, diarrhea or constipation Musculoskeletal: No joint pain, calf pain, swelling Neurologic: No weakness, numbness/tingling, or balance problems Psychiatric: No anxiety or depression Skin: No rash or itch Physical Exam Vital Signs Date Time Temp Pulse Resp B/P (MAP) Pulse Ox O2 Delivery O2 Flow Rate FiO2 09/24/16 16:33 51 17 134/64 98 Room Air 09/24/16 15:50 47 09/24/16 14:26 36.7 63 20 131/76 94 Room Air General: awake, alert, no apparent distress Head: Normocephalic, atraumatic ENT: PERRL, EOMI, peripheral visual bunn tested and are intact bilaterally, no pharyngeal exudate, mucous membranes moist Chest: Clear to auscultation, on room air, no adventitious breath sounds Cardiac: + Bradycardic, no murmur, no JVD, normal peripheral pulses, good capillary refill Abdominal: NABS x 4 quadrants, soft, nontender to palpation, no rebound, guarding or tenderness Extremities: Normal inspection, no peripheral edema or erythema, calfs nontender to palpation Psych: Normal mood and affect Neuro: AAO x 3, CN II-XII tested and are intact, strength intact bilaterally in all extremities and related 5/5, finger to nose testing intact, no motor deficits, speech is clear, no peripheral sensory deficits Diagnostics Laboratory Results Results Past 24 Hours Test 09/24/16 15:07 Range/Units White Blood Count 6.25 4.8-10.8 K/uL Red Blood Count 4.80 4.7-6.1 M/uL Hemoglobin 16.4 14.0-18.0 g/dL Hematocrit 47.3 42-52 % Mean Corpuscular Volume 98.5 80-100 fL Mean Corpuscular Hemoglobin 34.2 25-34 pg Mean Corpuscular Hemoglobin Concent 34.7 32-36 g/dl Platelet Count 228 130-400 K/uL Mean Platelet Volume 9.1 7.4-10.4 fL Neutrophils (%) (Auto) 75.2 % Lymphocytes (%) (Auto) 15.2 % Monocytes (%) (Auto) 8.6 % Eosinophils (%) (Auto) 0.6 % Basophils (%) (Auto) 0.2 % Neutrophils # (Auto) 4.70 1.4-6.5 K/uL Lymphocytes # (Auto) 0.95 1.2-3.4 K/uL Monocytes # (Auto) 0.54 0.11-0.59 K/uL Eosinophils # (Auto) 0.04 0-0.5 K/uL Basophils # (Auto) 0.01 0-0.2 K/uL RDW Standard Deviation 46.9 36.4-46.3 fL RDW Coefficient of Variation 13.0 11.5-14.5 % Immature Granulocyte % (Auto) 0.2 % Immature Granulocyte # (Auto) 0.01 0.00-0.02 K/uL Sodium Level 141 136-145 mmol/L Potassium Level 4.1 3.5-5.1 mmol/L Chloride Level 106 98-107 mmol/L Carbon Dioxide Level 29 21-32 mmol/L Anion Gap 6.0 3-11 mmol/L Blood Urea Nitrogen 14 7-18 mg/dl Creatinine 1.40 0.60-1.40 mg/dl Est Creatinine Clear Calc Drug Dose 35.4 ml/min Estimated GFR () 53.1 Estimated GFR (Non- 45.8 BUN/Creatinine Ratio 10.2 10-20 Random Glucose 97 70-99 mg/dl Calcium Level 8.9 8.5-10.1 mg/dl Total Bilirubin 0.7 0.2-1 mg/dl Aspartate Amino Transf (AST/SGOT) 18 15-37 U/L Alanine Aminotransferase (ALT/SGPT) 26 12-78 U/L Alkaline Phosphatase 61 45-117 U/L Total Protein 7.0 6.4-8.2 gm/dl Albumin 3.7 3.4-5.0 gm/dl Globulin 3.3 2.5-4.0 gm/dl Albumin/Globulin Ratio 1.1 0.9-[address] HEAD WITHOUT CONTRAST (CT) CLINICAL HISTORY: vertigo COMPARISON STUDY: 05/06/2014 TECHNIQUE: Axial CT of the brain is performed from the vertex to the skull base. IV contrast was not administered for this examination. CT DOSE: 1600.80 mGycm FINDINGS: There is a moderate to large subacute left cerebellar infarct. There is no midline shift. There is no acute hemorrhage. There are minimal white matter hypodensities likely on a small vessel basis. There is no evidence of pathologic ventricular dilatation. There is no evidence of acute sinusitis IMPRESSION: 4.4 cm subacute left cerebellar infarct. Electronically signed by: Trip Roach M.D. 09/24/2016 3:38 PM Dictated Date/Time: 09/24/2016 3:36 PM The status of this report is Signed. EKG Vent. rate 45 BPM VT interval 180 ms QRS duration 100 ms QT/QTc 476/411 ms P-R-T axes 73 -10 43 Sinus bradycardia Low voltage QRS Borderline ECG When compared with ECG of 19-AUG-2015 10:23, No significant change was found Impression Assessment and Plan This is a 86 yo M with PMHx of prostate cancer s/p XRT x 2 cycles, radiation prostatitis, status post R radical colectomy with with ileocecal anastomosis for adhesions, and tubulovillous adenoma which was benign, who presents to the ED found to have a left cerebellar subacute infarct. Left cerebellar subacute infarct as seen on CT scan - Admit to telemetry - CT showing a 4.4 cm moderate cerebellar subacute infarct - Neuro checks every 4 hours and when necessary with neurological changes - Neurology consulted: Spoke with Dr. Whittington over the phone who requests MRI and MRA of the brain, carotid Dopplers and echocardiogram. - Continue the patient on Plavix 75 QAM, will give 1 dose now since last dose was Saturday morning. - Patient's symptoms which were initially concerning and significant have since resolved. - PT and OT eval's - Check lipids, hgb A1C with am labs - Follow CBC and PRP Bilateral impacted cerumen - was seen by Amalia Frost as outpatient on 09/19/16 and underwent cerumen disimpaction via suction - He was given a Rx for ofloaxacin 5 drops to both ears BID - will continue CAD S/p MT with stents x 2 in 2002 - Follow with Dr. Reza as an outpatient - Cont plavix therapy as above - Cont pravastatin 20 mg QOD History of right radical colectomy and ileocecal anastomosis - Completed 09/20/2015. 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 - During this he was also found to have significant radiation proctitis History of prostate carcinoma - s/p XRT therapy in October 2013 x 2 cycles and Lupron therapy - follow with Dr. Masters and Dr. Colmenares Hyperlipidemia -Patient has significant allergies to rosuvastatin and simvastatin as noted above. - He has been intolerant to higher doses than pravastatin 20 mg every other day. Homocystinemia -Continue folic acid and B12 DVT ppx: Teds, scds, plavix CODE STATUS: Full code Disposition: Patient from home, lives with , PT OT evaluations, likely able to return home once medically cleared. Level of Care Telemetry Resuscitation Status FULL RESUSCITATION VTE Prophylaxis Risk Level: Low Given or contraindicated: T.E.D. Stockings, SCD's Reviewed: Pt Seen/Exam by Me History Physician Logistics Research Engineer Supervision Note: I interviewed and examined the patient. Discussed with CARLI Reyez and agree with findings and plan as documented in the note. Any exceptions or clarifications are listed here: Pt here with sensation of falling off to the left along with N/V and brief blurry vision for the last 2-3 days. He then woke up with a mild left posterior MARTINEZ today which finally prompted him to come to the ER. His symptoms of N/V have resolved now but feeling off balance remains although gait is much improved from 2 days ago. He was found to have a subacute large left cerebellar CVA on head CT. He has been on Plavix for his CAD and has not missed any doses until after these symptoms started 2 days ago (due to N/V). No h/o A-fib and no palpitations or rapid heartbeat by history. Vitals reviewed HEENT: EOMI, PERRLA, watery discharge from both eyes and mild erythema , anicteric sclerae, face symmetric, TMs and EACs normal bilaterally, nasal passages clear Bradycardic, reg rhythm, no mgr Lungs CTAB, breathing unlabored Abd +BS soft NT ND Ext no edema, 2+ DP pulses Neuro: CN 2-12 intact, strength full throughout upper and lower extremities, sensation intact to lt touch, finger to nose intact bilat, rapid alt hands slightly off on left, heel to lane normal bilat, gait with slight drift to the left, actually able to tandem walk for about 8 steps without assistance ECG reviewed by me, CT head images reviewed by me Labs reviewed 86 yo male with a h/o prostate CA, radiation proctitis, colectomy for large TV adenoma, CAD w/ stents, HL, here with dizziness, N/V, headache, found to have large left subacute cerebellar CVA. -give Plavix dose STAT as has not taken in 2 days--> he cannot tolerate ASA due to GI issues in the past, will probably have to stay on Plavix -tele monitoring for arrhythmias -check ECHO -Neuro consult appreciated -check brain MRI, head MRA, carotid US -continue statin but can only tolerate pravastatin every other day unfortunately , has tried many other statins with severe myalgias -PT/OT/ST and will likely need acute rehab Proph- SCDs, add Heparin SQ for DVT proph Dispo- likely to acute rehab Documented By: Nighat Zabala
[2016-09-24] MEDS ORDERED: ONDANSETRON INJ 2 MG/ML 2 ML VIAL IV PRN (18:00)
[2016-09-24] MEDS ORDERED: PHARMACIST DISCHARGE MED REC CONSULT PRN (18:00)
[2016-09-24] MEDS ORDERED: ACETAMINOPHEN 325 MG TAB PO PRN (18:00)
[2016-09-24] MEDS: CLOPIDOGREL BISULFATE 75 MG TAB PO SCH (18:55)
[2016-09-24] MEDS ORDERED: CLOPIDOGREL BISULFATE 75 MG TAB PO STA (19:29)
[2016-09-24] MEDS ORDERED: COENZYME Q10 PO SCH (21:00)
--- NOTE | 2016-09-24 21:32 | DIAGNOSTIC IMAGING REPORT ---
MRI OF THE BRAIN WITHOUT AND WITH IV CONTRAST CLINICAL HISTORY: Cerebellar infarct. COMPARISON STUDY: Head CT performed earlier today. TECHNIQUE: Utilizing a 1.5 Debora magnet and dedicated coil, multiplanar, multiecho imaging of the brain was performed pre and postcontrast administration. IV administration of 7.5 mL of Gadavist contrast was uneventful. FINDINGS: Note is made of a 5.8 x 3.3 cm focus of restricted diffusion within the inferolateral aspect of the left cerebellar hemisphere. There is mild mass effect. There is no hemorrhage. No hydrocephalus is present. There are no additional acute or subacute infarcts. No intracranial mass or pathologic enhancement is identified. Numerous small white matter T2 hyperintense foci suggest small vessel disease. There is a small old left frontoparietal infarct. Calvarial signal is normal. IMPRESSION: 5.8 x 3.3 cm focus of restricted diffusion within the inferolateral aspect of the left cerebellar hemisphere which reflects a subacute to acute infarct. Mild mass effect. No hemorrhage. Electronically signed by: Bin Collins M.D. 09/24/2016 9:31 PM Dictated Date/Time: 09/24/2016 9:25 PM
[2016-09-24 21:38] VITALS: BP 158/83; PULSE 55; TEMP 37.8; O2SAT 100; Ht 167.6 cm; Wt 73.5 kg
--- NOTE | 2016-09-24 21:47 | DIAGNOSTIC IMAGING REPORT ---
MRA OF THE INTRACRANIAL CIRCULATION WITHOUT CONTRAST CLINICAL HISTORY: Vertigo. Headache. Left cerebellar infarct. COMPARISON STUDY: Head CT performed earlier today. TECHNIQUE: Utilizing a 1.5 Debora magnet and 3-D [id number]-[id number] technique, unenhanced MRA of the intracranial circulation was obtained. FINDINGS: The bilateral M1, M2, A1 and A2 segments are patent. There is no abrupt cutoff within the anterior circulation. No intracranial aneurysm is identified. There is abrupt cut off of the left posterior inferior cerebellar artery shown on axial image 24 of 224. This likely accounts for the infarct shown on head CT from earlier today. No additional sites of the abrupt vessel cut off identified within the posterior circulation. IMPRESSION: Abrupt cut off of the left posterior inferior cerebellar artery which accounts for the left cerebellar infarct shown on head CT. Electronically signed by: Bin Collins M.D. 09/24/2016 9:45 PM Dictated Date/Time: 09/24/2016 8:43 PM
[2016-09-24] MEDS: CYANOCOBALAMIN 500 MCG TAB (VIT B-12) PO SCH (22:27)
[2016-09-24] MEDS: CHOLECALCIFEROL 1000 INTER.UNIT TAB PO SCH (22:28)
[2016-09-24 22:35] LABS: PROTHROMBIN TIME (PATIENT) 10.7 SECONDS (9.0-12.0)
[2016-09-24 23:53] LABS: URINE APPEARANCE CLEAR (CLEAR); URINE BILIRUBIN NEG (NEG); URINE COLOR YELLOW; URINE NITRITE NEG (NEG); URINE PH 7.5 (4.5-7.5); URINE SPECIFIC GRAVITY 1.016 (1.000-1.030); UROBILINOGEN NEG (NEG); ZZUR CULT IF INDIC CLEAN CATCH NO
[2016-09-24 23:57] LABS: MANUAL MICROSCOPIC REQUIRED? NO; REVIEW REQ? NO
[2016-09-25 00:17] VITALS: BP 127/65; PULSE 62; TEMP 36.7; O2SAT 95
[2016-09-25 03:45] VITALS: BP 120/60; PULSE 46; TEMP 36.8; O2SAT 96
[2016-09-25] MEDS: HEPARIN SOD 5000 UNIT/0.5 ML CARP SQ SCH ×3 (05:54→20:37)
[2016-09-25 06:05] LABS: BASO % 0.2 %; BASO ABS # 0.01 K/uL (0-0.2); COMPLETE YES; EOS % 2.5 %; HEMATOCRIT 42.7 % (42-52); IG% 0.2 %; LYMPH % 17.9 %; LYMPH ABS # 0.95 K/uL (1.2-3.4); MEAN CELL VOLUME 98.4 fL (80-100); MEAN CORPUSCULAR HEMOGLOBIN 33.9 pg (25-34); MEAN CORPUSCULAR HGB CONC 34.4 g/dl (32-36); MEAN PLATELET VOLUME 9.1 fL (7.4-10.4); NEUT % 65.2 %; PLATELET COUNT 209 K/uL (130-400); RED BLOOD COUNT 4.34 M/uL (4.7-6.1)
[2016-09-25 06:36] LABS: BUN/CREATININE RATIO 12.4 (10-20); CALCIUM 7.9 mg/dl (8.5-10.1); CREATININE 1.2 mg/dl (0.60-1.40); POTASSIUM 3.8 mmol/L (3.5-5.1)
[2016-09-25 06:40] LABS: CHOLESTEROL/HDL RATIO 3.6
[2016-09-25 06:40] LABS: ESTIMATED AVERAGE GLUCOSE 105 mg/dl; HA1C FLAG Normal (Normal)
--- NOTE | 2016-09-25 06:44 | DIAGNOSTIC IMAGING REPORT ---
CAROTID DOPPLER NECK ART HISTORY: Mental status change Stroke COMPARISON: None. TECHNIQUE: Real-time, grayscale, and color Doppler sonography of the carotid arteries was performed. Imaging reviewed in the transverse and longitudinal planes. All measurements were calculated based on NASCET criteria. FINDINGS: Antegrade flow is seen in the bilateral vertebral arteries. The brachial pressures are hemodynamically similar. Mild plaque bilaterally The peak systolic velocity within the right ICA is 66. The right systolic ratio is not obtainable. The peak systolic velocity within the left ICA is 63. The left systolic ratio is not obtainable IMPRESSION: Moderate mild plaque formation bilaterally. No significant stenosis The above report was generated using voice recognition software. It may contain grammatical, syntax or spelling errors. Electronically signed by: Jesús Adams M.D. 09/25/2016 6:43 AM Dictated Date/Time: 09/25/2016 6:41 AM
[2016-09-25] MEDS: CALCIUM 600MG + VIT D 400 IU TAB PO SCH (08:45)
[2016-09-25] MEDS: CLOPIDOGREL BISULFATE 75 MG TAB PO SCH (08:46)
[2016-09-25] MEDS ORDERED: PRAVASTATIN SOD 20 MG TAB PO SCH (09:00)
[2016-09-25] MEDS ORDERED: CLOPIDOGREL BISULFATE 75 MG TAB PO SCH (09:00)
--- NOTE | 2016-09-25 09:05 | ECHOCARDIOGRAM REPORT ---
*NOTICE TO RECEIVING CONSTITUTION PARTY AGENCY This information is strictly Confidential and protected under [place] law. [place] law prohibits you from making any further disclosure of this information unless further disclosure is expressly permitted by the written consent of the person to whom it pertains or is authorized by law. A general authorization for the release of medical or other information is not sufficient for this purpose. Hospital accepts no responsibility if the information is made available to any other person, INCLUDING THE PATIENT. Interpretation Summary * Name: SARA KANG Study Date: 09/25/2016 07:53 AM BP: 120/60 mmHg * Patient Location: [facility] HR: 46 * : 1930 (M/d/yyyy) Gender: Male Height: 66 in * Age: 86 yrs Ethnicity: CA Weight: 166 lb * Ordering Physician: Zahira Reyez * Referring Physician: Self, Referred * Performed By: Rhiannon Shaw RDCS * * Reason For Study: L CEREBELLAR INFARCT * BSA: 1.8 m2 * -- Conclusions -- * 1. Normal LV size. Mild concentric LVH. * 2. Normal LV systolic function. LVEF 55-60%. No regional wall motion abnormalities. * 3. Normal RV size and function. * 4. Grade I diastolic dysfunction. * 5. Mild aortic valve sclerosis without stenosis. * 6. Trace MR. Mild GA. Trace TR. * 7. Positive saline contrast study suggestive of interatrial shunt, suspect PFO. * 8. Possible atrial septal aneurysm. * 9. No prior studies for comparison. Procedure Details * A saline contrast injection was performed to assess for cardiac shunting. * The injection was performed through an intravenous line in the left arm. * The attending nurse who injected the saline contrast was LUAN ISAAC RN. * A total of 20 cc of agitated saline was given. Left Ventricle * The left ventricle is grossly normal size. * There is mild concentric left ventricular hypertrophy. * Ejection Fraction = 55-60%. * No regional wall motion abnormalities noted. Right Ventricle * The right ventricle is grossly normal size. * The right ventricular systolic function is qualitatively normal. Atria * The left atrium is moderately dilated. * Right atrial size is normal. * Injection of contrast documented an interatrial shunt. * Possible atrial septal aneurysm. Mitral Valve * There is mild mitral annular calcification. * There is no mitral valve stenosis. * There is trace mitral regurgitation. Tricuspid Valve * The tricuspid valve is not well visualized, but is grossly normal. * No significant tricuspid stenosis. * There is trace tricuspid regurgitation. Aortic Valve * Aortic valve sclerosis mild, without significant aortic valvular stenosis. * The aortic valve is trileaflet. * There is discrete nodular thickening of the right coronary cusp. * No hemodynamically significant valvular aortic stenosis. * There is no significant aortic regurgitation. Pulmonic Valve * The pulmonary valve is inadequately visualized, but the Doppler data is adequate for interpretation. * Pulmonic stenosis is absent. * Mild pulmonic valvular regurgitation. Great Vessels * The aortic root and proximal ascending aorta are normal sized. Pericardium/Pleural * There is no pericardial effusion. Great Vessels * IVC 2.1 cm, < 50% change with respiration. Est RA 8 mmHg. Left Ventricular Diastolic Function * Grade I diastolic dysfunction, (abnormal relaxation pattern). MMode 2D Measurements and Calculations IVSd 1.3 cm IVSs 1.3 cm LVIDd 4.3 cm LVIDs 3.0 cm LVPWd 1.1 cm LVPWs 1.2 cm IVS/LVPW 1.2 FS 29.6 % EDV(Teich) 83.7 ml ESV(Teich) 36.0 ml EF(Teich) 56.9 % EDV(cubed) 80.2 ml ESV(cubed) 28.0 ml EF(cubed) 65.1 % % IVS thick 0.50 % % LVPW thick 16.2 % LV mass(C)d 184.4 grams LV mass(C)dI 99.8 grams/m\S\2 LV mass(C)s 123.8 grams LV mass(C)sI 67.0 grams/m\S\2 SV(Teich) 47.6 ml SI(Teich) 25.8 ml/m\S\2 SV(cubed) 52.2 ml SI(cubed) 28.3 ml/m\S\2 Ao root diam 3.6 cm Ao root area 10.2 cm\S\2 LA dimension 4.0 cm LA/Ao 1.1 LVAd ap4 34.5 cm\S\2 LVLd ap4 8.4 cm EDV(MOD-sp4) 116.4 ml EDV(sp4-el) 119.6 ml LVAs ap4 21.8 cm\S\2 LVLs ap4 7.8 cm ESV(MOD-sp4) 51.9 ml ESV(sp4-el) 51.3 ml EF(MOD-sp4) 55.4 % EF(sp4-el) 57.1 % LVAd ap2 31.1 cm\S\2 LVLd ap2 8.7 cm EDV(MOD-sp2) 91.5 ml EDV(sp2-el) 94.7 ml LVAs ap2 18.8 cm\S\2 LVLs ap2 7.2 cm ESV(MOD-sp2) 40.9 ml ESV(sp2-el) 41.7 ml EF(MOD-sp2) 55.3 % EF(sp2-el) 56.0 % LVLd %diff 2.4 % EDV(MOD-bp) 105.0 ml LVLs %diff -9.28 % ESV(MOD-bp) 47.0 ml EF(MOD-bp) 55.3 % SV(MOD-sp4) 64.5 ml SI(MOD-sp4) 34.9 ml/m\S\2 SV(MOD-sp2) 50.6 ml SI(MOD-sp2) 27.4 ml/m\S\2 SV(MOD-bp) 58.0 ml SI(MOD-bp) 31.4 ml/m\S\2 SV(sp4-el) 68.3 ml SI(sp4-el) 37.0 ml/m\S\2 SV(sp2-el) 53.0 ml SI(sp2-el) 28.7 ml/m\S\2 Doppler Measurements and Calculations MV E max pancho 86.9 cm/sec MV A max pancho 97.7 cm/sec MV E/A 0.89 MV dec time 0.33 sec Ao V2 max 132.0 cm/sec Ao max PG 7.0 mmHg Ao max PG (full) 1.5 mmHg LV V1 max PG 5.4 mmHg LV V1 max 116.5 cm/sec
[2016-09-25] MEDS ORDERED: OPTIRAY 320 IV PRN (09:45)
--- NOTE | 2016-09-25 10:03 | Neurology Consultation ---
Neurology Consultation Date of Consultation: Sep 25, 2016. Attending Physician: Teja Cota MD Primary Care Physician: Rafita Pastrana III, CRNP Reason for Consultation: Consultation for cerebellar stroke History of Present Illness Source: patient, clinic records, hospital records This is a 86-year-old right-handed male who presents for the above evaluation. He reports that Saturday night he suddenly felt sick. He had reported chills, blurred vision, vomiting, and feeling like he was veering off to the left. He recently was treated for wax impaction in his ear and thought that maybe his symptoms were either related or related to food poisoning. He reports that he was seen at [facility] on Saturday and was given medication for nausea. When he was still not feeling well and a morning he presented to the emergency room for evaluation. CAT scan of the head noted a subacute left cerebellar infarct. Patient reports that he still getting nauseous but his vision has resolved. Reports that his walking is better. He has not noted any discoordination with his arms. He has a minimal headache that he describes as feeling like a hangover. He denies any numbness. No trouble eating or swallowing. No loss of vision. No trouble with speech or cognition. MRI of the brain reported images were reviewed by myself. Noted to have a subacute sizable left cerebellar ischemic stroke. MRA of the head notes an abrupt cutoff of the left PICA. Ultrasound of the carotids note moderate bilateral plaque but no critical stenosis Echocardiogram is pending Total cholesterol 140, LDL 74, HDL 39, triglycerides 136. Patient takes pravastatin every other day due to statin intolerance Creatinine this morning noted to be 1.2 Hemoglobin A1c 5.3 Patient reports that after his DE he was not able to tolerate low-dose aspirin due to stomach upset. Patient reports that he was compliant with his Plavix up until the point that he was having severe nausea. Patient denies any tobacco use. No drug or supplement use. No history A. fib. Past Medical/Surgical History Medical Problems: (1) CVA (cerebral vascular accident) Status: Acute (2) Vertigo Status: Acute Past medical history significant for CAD status post DE, prostate cancer status post radiation, and colon cancer status post right colectomy Patient also reports a history of malaria, shoulder dislocation, and rotator cuff tear. 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 Works as a [employer]. Normally independent in his activities of daily living. Denies any tobacco use. Drinks one glass of wine per day. No illegal drug use or supplement use. Smoking Status: Never smoker Smokeless Tobacco Use: Yes Alcohol Use: none Marital Status: Housing Status: lives with significant other Occupation Status: retired Allergies Coded Allergies: Simvastatin (Verified Allergy, Unknown, MAJOR CRAMPING, 08/29/16) Rosuvastatin (Verified Adverse Reaction, Severe, SPASMS,CRAMPING,ALTERED MENTAL STATUS, 08/17/16) Aspirin (Verified Adverse Reaction, Mild, UNCOATED FULL-STR ASA-GI UPSET, 08/17/16) Current Inpatient Medications Current Inpatient Medications Medications (Trade) Dose Ordered Sig/Narcisa Route Start Time Stop Time Status Last Admin Dose Admin Miscellaneous Information (Pharmacist Discharge Med Rec Consult) 1 ea UD PRN N/A 09/24/16 18:00 10/24/16 17:59 Acetaminophen (Tylenol Tab) 650 mg Q4H PRN PO 09/24/16 18:00 10/24/16 17:59 Ondansetron HCl (Zofran Inj) 4 mg Q6H PRN IV 09/24/16 18:00 10/24/16 17:59 Calcium/Vitamin D (Caltrate Plus Tab) 1 tab QAM PO 09/25/16 09:00 10/25/16 08:59 09/25/16 08:45 1 TAB Cholecalciferol (Vitamin D Tab) 1,000 inter.unit QPM PO 09/24/16 21:00 10/24/16 20:59 09/24/16 22:28 1,000 INTER.UNIT Folic Acid (Folvite Tab) 1 mg BID PO 09/24/16 21:00 10/24/16 20:59 09/25/16 08:46 1 MG Pravastatin Sodium (Pravachol Tab) 20 mg Q2D PO 09/25/16 09:00 10/25/16 08:59 09/25/16 08:45 20 MG Cyanocobalamin (Vitamin B-12 Tab) 1,000 mcg QPM PO 09/24/16 21:00 10/24/16 20:59 09/24/16 22:27 1,000 MCG Clopidogrel Bisulfate (plAVix TAB) 75 mg QAM PO 09/24/16 18:55 10/25/16 08:59 09/25/16 08:46 75 MG Heparin Sodium (Porcine) (Heparin Sq 5000 Unit/0.5ml) 5,000 unit Q8H SQ 09/25/16 06:00 10/25/16 05:59 09/25/16 05:54 5,000 UNIT Review of Systems Complete review of systems otherwise negative except for the above noted in history of present illness Physical Exam Vital Signs (Past 24 Hrs): Date Time Temp Pulse Resp B/P (MAP) Pulse Ox O2 Delivery O2 Flow Rate FiO2 09/25/16 08:00 Room Air 09/25/16 04:00 Room Air 09/25/16 03:45 36.8 46 18 120/60 (80) 96 Room Air 09/25/16 00:17 36.7 62 16 127/65 (85) 95 Room Air 09/25/16 00:00 Room Air 09/24/16 22:00 Room Air 09/24/16 21:38 37.8 55 16 158/83 100 Room Air 09/24/16 20:05 51 15 95 09/24/16 20:02 150/76 09/24/16 19:50 50 22 97 09/24/16 19:47 162/74 09/24/16 19:35 53 09/24/16 19:20 58 24 09/24/16 19:05 53 19 09/24/16 19:03 134/64 09/24/16 18:50 52 18 09/24/16 18:35 58 24 09/24/16 18:20 67 23 09/24/16 18:05 56 13 09/24/16 17:50 62 20 09/24/16 17:35 58 28 09/24/16 17:20 59 14 09/24/16 17:05 57 18 09/24/16 16:50 52 09/24/16 16:35 51 17 09/24/16 16:33 51 17 134/64 98 Room Air 09/24/16 16:33 134/64 09/24/16 16:20 50 09/24/16 16:05 48 21 09/24/16 15:50 42 18 09/24/16 15:50 47 09/24/16 14:26 36.7 63 20 131/76 94 Room Air Gen.: Patient is alert and sitting in bed, in no acute distress. HEENT: Normocephalic /atraumatic, no scleral icterus Heart: Regular rate and rhythm Extremities: No gross deformities or rashes noted Neurological examination: Mental status: Patient is alert and oriented x3. Attention and concentration normal for the situation. Good fund of knowledge. Able to give her own history. Speech is fluent without any dysarthria or aphasia noted Cranial nerve: Funduscopic examination was unremarkable. No papilledema. Pupils equally round and reactive to light. Extraocular muscles intact without nystagmus. No facial asymmetry noted. Facial sensation intact. Tongue is midline. Good palatal elevation. Good shoulder shrug bilaterally. Hearing grossly intact to voice. Strength: 5/5 both proximal and distally in all extremities. There is no arm drift. Tone is normal. Sensation: Grossly intact to light touch in all extremities. Mildly positive Romberg Deep tendon reflexes: +1 in bilateral biceps, brachioradialis and patellar. Coordination: Patient had good finger to nose without dysmetria. Good heel-to- lane Gait: Appeared stable with no ataxia noted. Laboratory Results Past 24 Hours: 09/25/16 05:08 Red Blood Count 4.34, Mean Corpuscular Volume 98.4, Mean Corpuscular Hemoglobin 33.9, Mean Corpuscular Hemoglobin Concent 34.4, Mean Platelet Volume 9.1, Neutrophils (%) (Auto) 65.2, Lymphocytes (%) (Auto) 17.9, Monocytes (%) (Auto) 14.0, Eosinophils (%) (Auto) 2.5, Basophils (%) (Auto) 0.2, Neutrophils # (Auto ) 3.46, Lymphocytes # (Auto) 0.95, Monocytes # (Auto) 0.74, Eosinophils # (Auto ) 0.13, Basophils # (Auto) 0.01 09/25/16 05:08 Test 09/24/16 15:07 09/24/16 23:30 09/25/16 05:08 Prothrombin Time 10.7 SECONDS (9.0-12.0) Prothromb Time International Ratio 1.0 (0.9-1.1) Activated Partial Thromboplast Time 26.0 SECONDS (21.0-31.0) Partial Thromboplastin Ratio 1.0 Estimated Average Glucose 105 mg/dl Hemoglobin A1c 5.3 % (4.5-5.6) Total Bilirubin 0.7 mg/dl (0.2-1) Aspartate Amino Transf (AST/SGOT) 18 U/L (15-37) Alanine Aminotransferase (ALT/SGPT) 26 U/L (12-78) Alkaline Phosphatase 61 U/L (45-117) Total Protein 7.0 gm/dl (6.4-8.2) Albumin 3.7 gm/dl (3.4-5.0) Globulin 3.3 gm/dl (2.5-4.0) Albumin/Globulin Ratio 1.1 (0.9-2) Urine Color YELLOW Urine Appearance CLEAR (CLEAR) Urine pH 7.5 (4.5-7.5) Urine Specific [place] 1.016 (1.000-1.030) Urine Protein NEG (NEG) Urine Glucose (UA) NEG (NEG) Urine Ketones 1+ (NEG) Urine Occult Blood NEG (NEG) Urine Nitrite NEG (NEG) Urine Bilirubin NEG (NEG) Urine Urobilinogen NEG (NEG) Urine Leukocyte Esterase NEG (NEG) White Blood Count 5.30 K/uL (4.8-10.8) Red Blood Count 4.34 M/uL (4.7-6.1) Hemoglobin 14.7 g/dL (14.0-18.0) Hematocrit 42.7 % (42-52) Mean Corpuscular Volume 98.4 fL (80-100) Mean Corpuscular Hemoglobin 33.9 pg (25-34) Mean Corpuscular Hemoglobin Concent 34.4 g/dl (32-36) Platelet Count 209 K/uL (130-400) Mean Platelet Volume 9.1 fL (7.4-10.4) Neutrophils (%) (Auto) 65.2 % Lymphocytes (%) (Auto) 17.9 % Monocytes (%) (Auto) 14.0 % Eosinophils (%) (Auto) 2.5 % Basophils (%) (Auto) 0.2 % Neutrophils # (Auto) 3.46 K/uL (1.4-6.5) Lymphocytes # (Auto) 0.95 K/uL (1.2-3.4) Monocytes # (Auto) 0.74 K/uL (0.11-0.59) Eosinophils # (Auto) 0.13 K/uL (0-0.5) Basophils # (Auto) 0.01 K/uL (0-0.2) RDW Standard Deviation 46.6 fL (36.4-46.3) RDW Coefficient of Variation 12.8 % (11.5-14.5) Immature Granulocyte % (Auto) 0.2 % Immature Granulocyte # (Auto) 0.01 K/uL (0.00-0.02) Anion Gap 5.0 mmol/L (3-11) Est Creatinine Clear Calc Drug Dose 41.3 ml/min Estimated GFR () 64.0 Estimated GFR (Non- 55.2 BUN/Creatinine Ratio 12.4 (10-20) Calcium Level 7.9 mg/dl (8.5-10.1) Triglycerides Level 136 mg/dl (0-150) Cholesterol Level 140 mg/dl (0-200) HDL Cholesterol 39 mg/dl LDL Cholesterol, Calculated 74 mg/dl VLDL Cholesterol, Calculated 27 mg/dl Cholesterol/HDL Ratio 3.6 Imaging As noted above in history of present illness Impression This is a 86-year-old right-handed male with a subacute left cerebellar ischemic stroke. Unknown etiology at this time. Residual neurological symptoms of mild nausea and headache. Known stroke risk factors include dyslipidemia. Previous cardiology note also notes hyper-homocystinemia (which can also be a minor stroke risk factor and lowering the number with folic acid does not always decrease the risk), but recent homocystine checked in the last several years have been within normal limits. Plan I have ordered a CTA of the neck for further evaluation of the vertebral system in the setting of a posterior circulation stroke to rule out critical stenosis or dissection. Follow-up echocardiogram results to rule out cardio embolic sources for stroke. If hospital workup is unremarkable, would recommend a Holter monitor as an outpatient to rule out paroxysmal A. fib. Continue Plavix for secondary stroke prevention for now (avoid PPIs as this would interact with Plavix). Discussed with the patient about adding on low- dose aspirin 81 mg daily. Patient reports previous intolerance after DE, but may be worth retrying in the setting of acute stroke to see if he would be able to tolerate a low dose aspirin now. Alternatively could reasonably consider trying Aggrenox instead of Plavix plus aspirin. Aggrenox does have a small amount of aspirin in it, but the patient may tolerate lower dose of ASA in Aggrenox better. I think my preference would be is no discrete etiology is found during this hospital workup, to switch the patient's Plavix to Aggrenox. If patient does not tolerate Aggrenox, can always go back to Plavix. Continue low dose pravastatin without change (could also consider changing pravastatin 20 mg from every other day to 10 mg daily to see if the patient tolerates this better) Agree with PT/OT and speech evaluation for discharge planning. Allow for permissive hypertension while in hospital Avoid hypotension and dehydration Stroke risk factor modifications and recommendations: Blood pressure recommendations for the first month post hospital discharge 150/ 90-130/80, and after that blood pressure recommendations 130/80-110/70 Total cholesterol goal 100- 200 and LDL goal less than 100 (at goal) Hemoglobin A1c goal less than 7 (at goal) Encourage cardiovascular exercise at least 3 times a week for 30 minutes. Follow-up in neurology clinic in 1 month for post stroke hospital follow-up. If there is any questions or concerns, feel free to call/page me.
[2016-09-25 11:31] VITALS: BP 125/69; PULSE 43; TEMP 36.9; O2SAT 96
--- NOTE | 2016-09-25 14:35 | DIAGNOSTIC IMAGING REPORT ---
NECK ANGIO WITH CONTRAST CLINICAL HISTORY: 86-year-old male presents with subacute to acute infarction of the left cerebellar hemisphere within the PICA distribution COMPARISON STUDY: Brain MR 09/24/2016, MRA of the brain 09/24/2016. TECHNIQUE: Following the IV administration of 119 mL of Optiray 320, CT angiogram of the neck was performed from the aortic arch to the skull base. Images are reviewed in the axial, sagittal, and coronal planes. 3-D MIPS images are created and assessed. IV contrast was administered without complication. All measurements were calculated based on NASCET criteria. CT DOSE: 660.13 mGy.cm FINDINGS: Normal three-vessel configuration of the aortic arch is present. Imaged pulmonary trolled tree appears unremarkable. The bilateral common carotid arteries are widely patent. There is a mild degree of mixed plaquing within the bilateral carotid bulbs without evidence of high-grade narrowing by NASCET criteria or occlusion. The vertebral arteries are co-dominant and patent. Basilar artery is also patent and appears normal. The left PICA, is seen on images [id number] of the axial series and appears patent and tortuous with the distal portion of the vessel not well opacified. Previously questioned abrupt cut off of this vessel seen on MRA is not definitely seen. Brain parenchyma: There is decreased attenuation of the inferior left cerebellar hemisphere correlating with previously described infarction. There is mild maxillary sinus disease. Lung apices: Partially visualized upper lobe lung parenchyma appears clear. Soft tissues: The visualized pharyngeal soft tissues are normal in appearance noting angiographic phase technique. The oropharyngeal airway appears widely patent. The salivary and thyroid glands are normal in appearance. No cervical lymphadenopathy is seen. Skeletal structures: The visualized calvarium at the skull base appears intact. The imaged cervical spine demonstrates multilevel degenerative changes. IMPRESSION: 1. No evidence of high-grade stenosis, proximal branch occlusion, aneurysm or dissection. 2. Previously noted vessel cut off involving the left plica on comparison MRA is not well appreciated on this study. 3. Decreased attenuation of the inferior left cerebellar hemisphere correlates with infarction seen on MRI of the brain. 4. Mild mixed plaquing of the bilateral carotid bulbs without high-grade narrowing by NASCET criteria. The above report was generated using voice recognition software. It may contain grammatical, syntax or spelling errors. Electronically signed by: Yogi Cano M.D. 09/25/2016 2:34 PM Dictated Date/Time: 09/25/2016 2:17 PM
[2016-09-25 15:32] VITALS: BP 150/79; PULSE 46; TEMP 36.3; O2SAT 97
[2016-09-25 19:06] VITALS: BP 145/72; PULSE 55; TEMP 36.5; O2SAT 96
[2016-09-25] MEDS: CYANOCOBALAMIN 500 MCG TAB (VIT B-12) PO SCH (20:35)
[2016-09-25] MEDS: CHOLECALCIFEROL 1000 INTER.UNIT TAB PO SCH (20:35)
[2016-09-25] MEDS ORDERED: PSYLLIUM 58.6% PWD PACK S\\F PO SCH (21:00)
[2016-09-25] MEDS ORDERED: OMEGA-3 (PURIFIED FISH OIL) 1 GM CAP PO SCH (21:00)
--- NOTE | 2016-09-25 23:26 | Progress Note ---
Subjective Date of Service: Sep 25, 2016. Subjective Pt evaluation today including: conversation w/ patient, conversation w/ family ( at bedside), physical exam, chart review, lab review, review of studies ( MRI brain, MRA brain, CTA neck, echo), conversation w/ healthcare network pricing consultant (neurology), review of inpatient medication list Pain: mild headache (posterior) PO Intake: normal Voiding: no voiding problems tele stable overnight - no a. fib or flutter gait/walking improved coordination of left hand/arm also improved no vertigo or visual field troubles no motor weakness or dysarthria or dysphagia feeling better Problem List Medical Problems: (1) CVA (cerebral vascular accident) Status: Acute (2) Vertigo Status: Acute Review of Systems Respiratory: No shortness of breath Cardiac: No chest pain Abdomen: No pain Objective Vital Signs Date Time Temp Pulse Resp B/P (MAP) Pulse Ox O2 Delivery O2 Flow Rate FiO2 09/25/16 20:00 Room Air 09/25/16 19:06 36.5 55 16 145/72 (96) 96 Room Air 09/25/16 15:32 36.3 46 18 150/79 (102) 97 Room Air 09/25/16 15:23 Room Air 09/25/16 12:41 Room Air 09/25/16 11:31 36.9 43 16 125/69 (87) 96 09/25/16 08:00 Room Air 09/25/16 04:00 Room Air 09/25/16 03:45 36.8 46 18 120/60 (80) 96 Room Air 09/25/16 00:17 36.7 62 16 127/65 (85) 95 Room Air 09/25/16 00:00 Room Air Physical Exam General Appearance: no apparent distress ENT: pharynx normal Neck: no JVD, no carotid bruits Respiratory/Chest: lungs clear, no respiratory distress, no accessory muscle use Cardiovascular: no gallop, no murmur, + bradycardia Abdomen: normal bowel sounds, non tender, soft, no organomegaly Extremities: no pedal edema Neurologic/Psychiatric: + abnormal cerebellar tests (finger/nose/finger maneuver on left with mild dysmetria; heel-lane maneuver b/l normal ) Skin: no rash Laboratory Results Last 24 Hours Test 09/24/16 23:30 09/25/16 05:08 Urine Color YELLOW Urine Appearance CLEAR Urine pH 7.5 Urine Specific [place] 1.016 Urine Protein NEG Urine Glucose (UA) NEG Urine Ketones 1+ Urine Occult Blood NEG Urine Nitrite NEG Urine Bilirubin NEG Urine Urobilinogen NEG Urine Leukocyte Esterase NEG White Blood Count 5.30 K/uL Red Blood Count 4.34 M/uL Hemoglobin 14.7 g/dL Hematocrit 42.7 % Mean Corpuscular Volume 98.4 fL Mean Corpuscular Hemoglobin 33.9 pg Mean Corpuscular Hemoglobin Concent 34.4 g/dl Platelet Count 209 K/uL Mean Platelet Volume 9.1 fL Neutrophils (%) (Auto) 65.2 % Lymphocytes (%) (Auto) 17.9 % Monocytes (%) (Auto) 14.0 % Eosinophils (%) (Auto) 2.5 % Basophils (%) (Auto) 0.2 % Neutrophils # (Auto) 3.46 K/uL Lymphocytes # (Auto) 0.95 K/uL Monocytes # (Auto) 0.74 K/uL Eosinophils # (Auto) 0.13 K/uL Basophils # (Auto) 0.01 K/uL RDW Standard Deviation 46.6 fL RDW Coefficient of Variation 12.8 % Immature Granulocyte % (Auto) 0.2 % Immature Granulocyte # (Auto) 0.01 K/uL Sodium Level 142 mmol/L Potassium Level 3.8 mmol/L Chloride Level 106 mmol/L Carbon Dioxide Level 31 mmol/L Anion Gap 5.0 mmol/L Blood Urea Nitrogen 15 mg/dl Creatinine 1.20 mg/dl Est Creatinine Clear Calc Drug Dose 41.3 ml/min Estimated GFR () 64.0 Estimated GFR (Non- 55.2 BUN/Creatinine Ratio 12.4 Random Glucose 94 mg/dl Calcium Level 7.9 mg/dl Triglycerides Level 136 mg/dl Cholesterol Level 140 mg/dl HDL Cholesterol 39 mg/dl LDL Cholesterol, Calculated 74 mg/dl VLDL Cholesterol, Calculated 27 mg/dl Cholesterol/HDL Ratio 3.6 Assessment and Plan 86yo male - 1. 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 CTA neck reviewed - the PICA occlusion seen on MRA brain not seen. No vertebral-basilar disease. No source of embolus seen on echo. Tele normal. Secondary stroke prevention - plavix +/- aspirin vs aggrenox; defer to neurology. Await PT, OT, speech evals. Should make good recovery from his event. Cont statin agent. 2. DVT proph - heparin TID. 3. hyperlipidemia - LDL is >70. Ideally LDL should be <70. Has had statin intolerance. Agree with trying lower dose of statin but daily. Will d/w patient. plan of care d/w home tomorrow if gait is stable? Discharge planning: home
[2016-09-25 23:33] VITALS: BP 121/70; PULSE 47; TEMP 36.8; O2SAT 97
[2016-09-26 03:14] VITALS: BP 120/69; PULSE 46; TEMP 36.5; O2SAT 96
[2016-09-26] MEDS: HEPARIN SOD 5000 UNIT/0.5 ML CARP SQ SCH (06:08)
[2016-09-26 06:32] LABS: BASO % 0.2 %; BASO ABS # 0.01 K/uL (0-0.2); COMPLETE YES; EOS % 4.5 %; IG% 0.2 %; LYMPH % 21.1 %; LYMPH ABS # 1.07 K/uL (1.2-3.4); MEAN CELL VOLUME 97.6 fL (80-100); MEAN CORPUSCULAR HEMOGLOBIN 34.4 pg (25-34); MEAN CORPUSCULAR HGB CONC 35.2 g/dl (32-36); MONO % 14.8 %; NEUT % 59.2 %; PLATELET COUNT 195 K/uL (130-400); RED BLOOD COUNT 4.51 M/uL (4.7-6.1); WHITE BLOOD COUNT 5.06 K/uL (4.8-10.8)
[2016-09-26 06:56] LABS: BUN/CREATININE RATIO 13.5 (10-20); CALCIUM 8.3 mg/dl (8.5-10.1); CREATININE 1.1 mg/dl (0.60-1.40); POTASSIUM 3.9 mmol/L (3.5-5.1)
[2016-09-26] MEDS: CALCIUM 600MG + VIT D 400 IU TAB PO SCH (07:36)
[2016-09-26 08:10] VITALS: BP 143/89; PULSE 64; TEMP 36.5; O2SAT 95
[2016-09-26] MEDS ORDERED: DIPYRIDAMOLE/ASPIRIN CAP PO SCH (09:00)
--- NOTE | 2016-09-26 09:22 | Neurology Progress Notes ---
Neurology Progress Note Date of Service Sep 26, 2016. Subjective Patient reports he is improved compared to yesterday but not completely 100%. Still feels not quite right in his head. Is able to walk around well without any gait dysfunction. No new neurological symptoms. CTA of the neck was reviewed. No crackles stenosis or dissection. Echocardiogram unremarkable. May have a suspected small PFO which is not significant in an elderly patient. Received dose of Aggrenox this morning without any reported side effects at this time. Common side effects can include headache and GI upset Complains of constipation Objective Date Time Temp Pulse Resp B/P (MAP) Pulse Ox O2 Delivery O2 Flow Rate FiO2 09/26/16 08:10 36.5 64 20 143/89 (107) 95 Room Air 09/26/16 08:00 Room Air 09/26/16 04:00 Room Air 09/26/16 03:14 36.5 46 17 120/69 (86) 96 Room Air 09/25/16 23:59 Room Air 09/25/16 23:33 36.8 47 17 121/70 (87) 97 Room Air 09/25/16 20:00 Room Air 09/25/16 19:06 36.5 55 16 145/72 (96) 96 Room Air 09/25/16 15:32 36.3 46 18 150/79 (102) 97 Room Air 09/25/16 15:23 Room Air 09/25/16 12:41 Room Air 09/25/16 11:31 36.9 43 16 125/69 (87) 96 Last 24 Hours Test 09/26/16 06:01 White Blood Count 5.06 K/uL Red Blood Count 4.51 M/uL Hemoglobin 15.5 g/dL Hematocrit 44.0 % Mean Corpuscular Volume 97.6 fL Mean Corpuscular Hemoglobin 34.4 pg Mean Corpuscular Hemoglobin Concent 35.2 g/dl Platelet Count 195 K/uL Mean Platelet Volume 9.0 fL Neutrophils (%) (Auto) 59.2 % Lymphocytes (%) (Auto) 21.1 % Monocytes (%) (Auto) 14.8 % Eosinophils (%) (Auto) 4.5 % Basophils (%) (Auto) 0.2 % Neutrophils # (Auto) 2.99 K/uL Lymphocytes # (Auto) 1.07 K/uL Monocytes # (Auto) 0.75 K/uL Eosinophils # (Auto) 0.23 K/uL Basophils # (Auto) 0.01 K/uL RDW Standard Deviation 45.9 fL RDW Coefficient of Variation 12.8 % Immature Granulocyte % (Auto) 0.2 % Immature Granulocyte # (Auto) 0.01 K/uL Sodium Level 141 mmol/L Potassium Level 3.9 mmol/L Chloride Level 107 mmol/L Carbon Dioxide Level 26 mmol/L Anion Gap 8.0 mmol/L Blood Urea Nitrogen 15 mg/dl Creatinine 1.10 mg/dl Est Creatinine Clear Calc Drug Dose 45.1 ml/min Estimated GFR () 71.1 Estimated GFR (Non- 61.3 BUN/Creatinine Ratio 13.5 Random Glucose 96 mg/dl Calcium Level 8.3 mg/dl Exam: Gen.: Patient is alert, walking in room, in no acute distress. HEENT: Normocephalic /atraumatic, no scleral icterus Extremities: No gross deformities or rashes noted Neurological examination: Mental status: Patient is alert and oriented x3. Attention and concentration normal for the situation. Good fund of knowledge. Able to give her own history. Speech is fluent without any dysarthria or aphasia noted Cranial nerve: No facial asymmetry noted. Hearing grossly intact to voice. Strength: full in all extremities. Gait: Appeared stable with no ataxia noted. Current Inpatient Medications Medications (Trade) Dose Ordered Sig/Narcisa Route Start Time Stop Time Status Last Admin Dose Admin Miscellaneous Information (Pharmacist Discharge Med Rec Consult) 1 ea UD PRN N/A 09/24/16 18:00 10/24/16 17:59 Acetaminophen (Tylenol Tab) 650 mg Q4H PRN PO 09/24/16 18:00 10/24/16 17:59 Ondansetron HCl (Zofran Inj) 4 mg Q6H PRN IV 09/24/16 18:00 10/24/16 17:59 Calcium/Vitamin D (Caltrate Plus Tab) 1 tab QAM PO 09/25/16 09:00 10/25/16 08:59 09/26/16 07:36 1 TAB Cholecalciferol (Vitamin D Tab) 1,000 inter.unit QPM PO 09/24/16 21:00 10/24/16 20:59 09/25/16 20:35 1,000 INTER.UNIT Folic Acid (Folvite Tab) 1 mg BID PO 09/24/16 21:00 10/24/16 20:59 09/26/16 07:36 1 MG Pravastatin Sodium (Pravachol Tab) 20 mg Q2D PO 09/25/16 09:00 10/25/16 08:59 09/25/16 08:45 20 MG Cyanocobalamin (Vitamin B-12 Tab) 1,000 mcg QPM PO 09/24/16 21:00 10/24/16 20:59 09/25/16 20:35 1,000 MCG Heparin Sodium (Porcine) (Heparin Sq 5000 Unit/0.5ml) 5,000 unit Q8H SQ 09/25/16 06:00 10/25/16 05:59 09/26/16 06:08 5,000 UNIT Ioversol (Optiray 320) 125 ml UD PRN IV 09/25/16 09:45 09/29/16 09:44 Fish Oil ([place]-3 (Purified Fish Oil) Cap) 1 gm QPM PO 09/25/16 21:00 10/25/16 20:59 09/25/16 20:34 1 GM Psyllium Hydrophilic Mucilloid (Metamucil Powder) 1 pkt QPM PO 09/25/16 21:00 10/25/16 20:59 09/25/16 20:34 1 PKT Dipyridamole/ Aspirin (Aggrenox 200MG/ 25MG Cap) 1 cap BID PO 09/26/16 09:00 10/26/16 08:59 09/26/16 08:16 1 CAP Impression This is a 86-year-old right-handed male with a subacute left cerebellar ischemic stroke. Suspected etiology large vessel atherosclerotic disease versus large vessel embolic (such as a piece of atherosclerotic plaque breaking off) versus undiagnosed paroxysmal A. fib (although there is no signs on imaging highly suggestive of multi territory cardio embolism). Residual neurological symptoms of mild nausea and headache. Known stroke risk factors include dyslipidemia. Previous cardiology note also notes hyper-homocystinemia (which can also be a minor stroke risk factor and lowering the number with folic acid does not always decrease the risk). Plan discontinue Plavix and initiate Aggrenox for secondary stroke prevention ( already ordered this morning). If patient does not tolerate Aggrenox, could go back to taking Plavix versus Plavix plus aspirin 81 mg daily. Continue low dose pravastatin as cholesterol numbers are within goal Follow-up PT/OT and speech evaluation for discharge planning. Stroke risk factor modifications and recommendations: Blood pressure recommendations for the first month post hospital discharge 150/ 90-130/80, and after that blood pressure recommendations 130/80-110/70 Total cholesterol goal 100- 200 and LDL goal less than 100 (at goal) Hemoglobin A1c goal less than 7 (at goal) Encourage cardiovascular exercise at least 3 times a week for 30 minutes. Follow-up in neurology clinic in 1 month for post stroke hospital follow-up. Recommend Holter monitor as an outpatient to rule out paroxysmal A. fib. If Holter monitor is unremarkable, could consider a 30 day cardiac event monitor If a cardiac event monitor is considered, would request that the patient follow-up with his radiology aide for their input and management as well. I updated son-in-law, who is a radiology aide, over the phone No additional neurological recommendations at this time. Thank you for allowing me to participate in this patient's care. If there is any questions or concerns , feel free to call/page me.
[2016-09-26] MEDS ORDERED: AGG PO ×2 (09:44→11:50)
--- NOTE | 2016-09-26 10:01 | Discharge Instructions ---
Discharge Instructions Date of Service Sep 26, 2016. (Kimberly Monge PA-C) Admission Reason for Admission: L Cerebellar Subacute Stroke (Kimberly Monge PA-C) Discharge Discharge Diagnosis / Problem: Left cerebellar subacute stroke (Kimberly Monge PA-C) Discharge Goals Goal(s): Decrease discomfort, Improve function, Improve disease control, Learn about illness, Diagnostic testing, Therapeutic intervention, Prevent Disease Progression (Kimberly Monge PA-C) Activity Recommendations Activity Limitations: resume your previous activity . (Kimberly Monge PA-C) Instructions / Follow-Up Instructions / Follow-Up CHANGED MEDICATIONS: 1. Aggrenox 1 capsule by mouth twice per day 2. STOP taking Plavix 3. Pravastatin 20 mg by mouth every other day has been CHANGED to 10 mg by mouth every night Resume all other regular home medications as prescribed. Constipation: 1. You may take MiraLAX daily or a stool softener- this can be bought over- the-counter, please follow directions on the bottle/box 2. Continue Metamucil 2. Continue to eat a healthy diet and drink plenty of fluids 3. Regular daily exercise Neurology recommendations: 1. Blood pressure recommendations for the first month post hospital discharge 150/90-130/80, and after that blood pressure recommendations 130/80- 110/70 2. Total cholesterol goal 100- 200 and LDL goal less than 100 (you are at goal ranges) 3. Hemoglobin A1c goal less than 7 (your hA1C is less than goal range) 4. Encourage cardiovascular exercise at least 3 times a week for 30 minutes 5. Recommend Holter monitor as an outpatient to rule out paroxysmal atrial fibrillation FOLLOW-UPS: PCP scheduled follow-up for October 03 at 11:00 AM Please follow-up with Neurology in 1 month- a referral has been sent; if you do not hear of an appointment in the next 1-2 days, please call the office at # [phone] Neurology is recommending a cardiology follow-up- a referral has been sent; if you do not hear of an appointment in the next 1-2 days, please call the office at # [phone] Please follow-up/keep all of your subspecialty appointments Risk Factors for Stroke: You can reduce your chances of stroke by working with your medical provider to adopt a healthy lifestyle. Some specific ways to lower your chance of stroke are: * If you are a smoker, now is the time to stop smoking cigarettes * If you are diabetic, improve the control of your blood sugars * Avoid excessive amounts of alcohol * Control high blood pressure * Lose weight if you are overweight * Be sure to lead an active lifestyle * Eat a healthy diet low in salt, cholesterol and fat You should know about other risk factors for stroke that you are unable to control. These include: * Age 55 years or older * Male gender * Certain racial groups: , or / * Family History of Stroke, Mini stroke or Heart Attack * Sickle Cell Disease Follow Up: It is important for you to keep your follow up appointments with your medical provider. (Kimberly Monge PA-C) Current Hospital Diet Patient's current hospital diet: AHA Diet (Heart Healthy) (Kimberly Monge PA-C) Discharge Diet Recommended Diet: AHA Diet (Heart Healthy) (Kimberly Monge PA-C) Procedures Procedures Performed: Head CT Carotid US Head MRA Brain MRI Head CTA (Kimberly Monge PA-C) Pending Studies Studies pending at discharge: no (Kimberly Monge PA-C) Laboratory Results Last Resulted CBC 09/26/16 06:01 Red Blood Count 4.51, Mean Corpuscular Volume 97.6, Mean Corpuscular Hemoglobin 34.4, Mean Corpuscular Hemoglobin Concent 35.2, Mean Platelet Volume 9.0, Neutrophils (%) (Auto) 59.2, Lymphocytes (%) (Auto) 21.1, Monocytes (%) (Auto) 14.8, Eosinophils (%) (Auto) 4.5, Basophils (%) (Auto) 0.2, Neutrophils # (Auto ) 2.99, Lymphocytes # (Auto) 1.07, Monocytes # (Auto) 0.75, Eosinophils # (Auto ) 0.23, Basophils # (Auto) 0.01 Last Resulted BMP 09/26/16 06:01 Hemoglobin A1c Test 09/24/16 15:07 Range/Units Estimated Average Glucose 105 mg/dl Hemoglobin A1c 5.3 4.5-5.6 % Lipid Panel Test 09/25/16 05:08 Range/Units Triglycerides Level 136 0-150 mg/dl Cholesterol Level 140 0-200 mg/dl HDL Cholesterol 39 mg/dl Cholesterol/HDL Ratio 3.6 LDL Cholesterol, Calculated 74 mg/dl (Kimberly Monge PA-C) Medical Emergencies . Who to Call and When: Medical Emergencies: Call 911 immediately if you experience any of the following warning signs and symptoms of Stroke: * Sudden numbness or weakness of the face, arm or leg, especially on one side of the body * Sudden confusion, trouble speaking or understanding * Sudden trouble seeing in one or both eyes * Sudden trouble walking, dizziness, loss of balance or coordination * Sudden severe headache with no cause Do not delay calling 911 if you experience any warning signs or symptoms of a stroke. Delay in seeking medical attention may affect what treatments can be given to you. . (Kimberly Monge PA-C) Non-Emergent Contact Non-Emergency issues call your: Primary Care Provider . (Kimberly Monge PA-C) . "Provider Documentation" section prepared by Kimberly Monge. . (Kimberly Monge PA-C) Attending Attestation: Pt seen/examined and discharge care plan d/w CARLI Monge on day of discharge. I agree with her discharge instructions as outlined. Teja Cota MD (Teja Cota MD) Stroke Core Measures Reason no t-PA for Stroke: Treatment not indicated Reason no antithrom by day 2: Treatment provided - N/A Reason no antithrom at D/C: Treatment provided - N/A Reason no statin at D/C: Treatment provided - N/A Reason no anticoag w/a fib: Treatment provided - N/A (Kimberly Monge PA-C) VTE Core Measure Inpt VTE Proph given/why not?: Unfractionated heparin SQ, T.E.Gonzalo. Stockings, SCD 's (Kimberly Monge, OLEKSANDRC)
--- NOTE | 2016-09-26 10:19 | Discharge Summary ---
Discharge Summary Date of Service Sep 26, 2016. (Kimberly Monge, MARTHA) Discharge Summary Admission Date: Sep 24, 2016 at 18:57 Discharge Date: Sep 26, 2016 Discharge Disposition: Home Principal Diagnosis: Left cerebellar subacute infarct Problems/Secondary Diagnoses: Bilateral impacted cerumen CAD s/p AL with stents x 2 in 2002 h/o right radical colectomy and ileocecal anastomosis 09/20/2015 h/o radiation proctitis h/o prostate carcinoma s/p XRT therapy in October 2013 x 2 cycles and Lupron therapy Hyperlipidemia w/ intolerance to Rosuvastatin, Simvastatin, and high dose statins Homocystinemia Immunizations: Have You Had Influenza Vaccine: Yes History of Tetanus Vaccine?: Yes History of Pneumococcal: No History of Hepatitis B Vaccine: Yes Procedures: CT HEAD WITHOUT CONTRAST (CT) CLINICAL HISTORY: vertigo COMPARISON STUDY: 05/06/2014 TECHNIQUE: Axial CT of the brain is performed from the vertex to the skull base. IV contrast was not administered for this examination. CT DOSE: 1600.80 mGycm FINDINGS: There is a moderate to large subacute left cerebellar infarct. There is no midline shift. There is no acute hemorrhage. There are minimal white matter hypodensities likely on a small vessel basis. There is no evidence of pathologic ventricular dilatation. There is no evidence of acute sinusitis IMPRESSION: 4.4 cm subacute left cerebellar infarct. Electronically signed by: Trip Roach M.D. 09/24/2016 3:38 PM Dictated Date/Time: 09/24/2016 3:36 PM The status of this report is Signed. Draft = Not yet reviewed or approved by Radiologist. Signed = Reviewed and approved by Radiologist CAROTID DOPPLER NECK ART HISTORY: Mental status change Stroke COMPARISON: None. TECHNIQUE: Real-time, grayscale, and color Doppler sonography of the carotid arteries was performed. Imaging reviewed in the transverse and longitudinal planes. All measurements were calculated based on NASCET criteria. FINDINGS: Antegrade flow is seen in the bilateral vertebral arteries. The brachial pressures are hemodynamically similar. Mild plaque bilaterally The peak systolic velocity within the right ICA is 66. The right systolic ratio is not obtainable. The peak systolic velocity within the left ICA is 63. The left systolic ratio is not obtainable IMPRESSION: Moderate mild plaque formation bilaterally. No significant stenosis The above report was generated using voice recognition software. It may contain grammatical, syntax or spelling errors. Electronically signed by: Jesús Adams M.D. 09/25/2016 6:43 AM Dictated Date/Time: 09/25/2016 6:41 AM The status of this report is Signed. Draft = Not yet reviewed or approved by Radiologist. Signed = Reviewed and approved by Radiologist. MRA OF THE INTRACRANIAL CIRCULATION WITHOUT CONTRAST CLINICAL HISTORY: Vertigo. Headache. Left cerebellar infarct. COMPARISON STUDY: Head CT performed earlier today. TECHNIQUE: Utilizing a 1.5 Debora magnet and 3-D [id number] technique, unenhanced MRA of the intracranial circulation was obtained. FINDINGS: The bilateral M1, M2, A1 and A2 segments are patent. There is no abrupt cutoff within the anterior circulation. No intracranial aneurysm is identified. There is abrupt cut off of the left posterior inferior cerebellar artery shown on axial image 24 of 224. This likely accounts for the infarct shown on head CT from earlier today. No additional sites of the abrupt vessel cut off identified within the posterior circulation. IMPRESSION: Abrupt cut off of the left posterior inferior cerebellar artery which accounts for the left cerebellar infarct shown on head CT. Electronically signed by: Bin Collins M.D. 09/24/2016 9:45 PM Dictated Date/Time: 09/24/2016 8:43 PM The status of this report is Signed. Draft = Not yet reviewed or approved by Radiologist. Signed = Reviewed and approved by Radiologist. MRI OF THE BRAIN WITHOUT AND WITH IV CONTRAST CLINICAL HISTORY: Cerebellar infarct. COMPARISON STUDY: Head CT performed earlier today. TECHNIQUE: Utilizing a 1.5 Debora magnet and dedicated coil, multiplanar, multiecho imaging of the brain was performed pre and postcontrast administration. IV administration of 7.5 mL of Gadavist contrast was uneventful. FINDINGS: Note is made of a 5.8 x 3.3 cm focus of restricted diffusion within the inferolateral aspect of the left cerebellar hemisphere. There is mild mass effect. There is no hemorrhage. No hydrocephalus is present. There are no additional acute or subacute infarcts. No intracranial mass or pathologic enhancement is identified. Numerous small white matter T2 hyperintense foci suggest small vessel disease. There is a small old left frontoparietal infarct. Calvarial signal is normal. IMPRESSION: 5.8 x 3.3 cm focus of restricted diffusion within the inferolateral aspect of the left cerebellar hemisphere which reflects a subacute to acute infarct. Mild mass effect. No hemorrhage. Electronically signed by: Bin Collins M.D. 09/24/2016 9:31 PM Dictated Date/Time: 09/24/2016 9:25 PM The status of this report is Signed. Draft = Not yet reviewed or approved by Radiologist. Signed = Reviewed and approved by Radiologist. NECK ANGIO WITH CONTRAST CLINICAL HISTORY: 86-year-old male presents with subacute to acute infarction of the left cerebellar hemisphere within the PICA distribution COMPARISON STUDY: Brain MR 09/24/2016, MRA of the brain 09/24/2016. TECHNIQUE: Following the IV administration of 119 mL of Optiray 320, CT angiogram of the neck was performed from the aortic arch to the skull base. Images are reviewed in the axial, sagittal, and coronal planes. 3-D MIPS images are created and assessed. IV contrast was administered without complication. All measurements were calculated based on NASCET criteria. CT DOSE: 660.13 mGy.cm FINDINGS: Normal three-vessel configuration of the aortic arch is present. Imaged pulmonary trolled tree appears unremarkable. The bilateral common carotid arteries are widely patent. There is a mild degree of mixed plaquing within the bilateral carotid bulbs without evidence of high-grade narrowing by NASCET criteria or occlusion. The vertebral arteries are co-dominant and patent. Basilar artery is also patent and appears normal. The left PICA, is seen on images [id number] of the axial series and appears patent and tortuous with the distal portion of the vessel not well opacified. Previously questioned abrupt cut off of this vessel seen on MRA is not definitely seen. Brain parenchyma: There is decreased attenuation of the inferior left cerebellar hemisphere correlating with previously described infarction. There is mild maxillary sinus disease. Lung apices: Partially visualized upper lobe lung parenchyma appears clear. Soft tissues: The visualized pharyngeal soft tissues are normal in appearance noting angiographic phase technique. The oropharyngeal airway appears widely patent. The salivary and thyroid glands are normal in appearance. No cervical lymphadenopathy is seen. Skeletal structures: The visualized calvarium at the skull base appears intact. The imaged cervical spine demonstrates multilevel degenerative changes. IMPRESSION: 1. No evidence of high-grade stenosis, proximal branch occlusion, aneurysm or dissection. 2. Previously noted vessel cut off involving the left plica on comparison MRA is not well appreciated on this study. 3. Decreased attenuation of the inferior left cerebellar hemisphere correlates with infarction seen on MRI of the brain. 4. Mild mixed plaquing of the bilateral carotid bulbs without high-grade narrowing by NASCET criteria. The above report was generated using voice recognition software. It may contain grammatical, syntax or spelling errors. Electronically signed by: Yogi Cano M.D. 09/25/2016 2:34 PM Dictated Date/Time: 09/25/2016 2:17 PM The status of this report is Signed. Draft = Not yet reviewed or approved by Radiologist. Signed = Reviewed and approved by Radiologist. ECHOCARDIOGRAM: Interpretation Summary * Name: SARA KANG Study Date: 09/25/2016 07:53 AM BP: 120/60 mmHg * Patient Location: [facility] HR: 46 * : 1930 (M/d/yyy) Gender: Male Height: 66 in * Age: 86 yrs Ethnicity: CA Weight: 166 lb * Ordering Physician: Zahira Reyez * Referring Physician: Self, Referred * Performed By: Rhiannon Shaw RDCS * * Reason For Study: L CEREBELLAR INFARCT * BSA: 1.8 m2 * -- Conclusions -- * 1. Normal LV size. Mild concentric LVH. * 2. Normal LV systolic function. LVEF 55-60%. No regional wall motion abnormalities. * 3. Normal RV size and function. * 4. Grade I diastolic dysfunction. * 5. Mild aortic valve sclerosis without stenosis. * 6. Trace MR. Mild [place]. Trace TR. * 7. Positive saline contrast study suggestive of interatrial shunt, suspect PFO. * 8. Possible atrial septal aneurysm. * 9. No prior studies for comparison. Procedure Details * A saline contrast injection was performed to assess for cardiac shunting. * The injection was performed through an intravenous line in the left arm. * The attending nurse who injected the saline contrast was LUAN ISAAC RN. * A total of 20 cc of agitated saline was given. Left Ventricle * The left ventricle is grossly normal size. * There is mild concentric left ventricular hypertrophy. * Ejection Fraction = 55-60%. * No regional wall motion abnormalities noted. Right Ventricle * The right ventricle is grossly normal size. * The right ventricular systolic function is qualitatively normal. Atria * The left atrium is moderately dilated. * Right atrial size is normal. * Injection of contrast documented an interatrial shunt. * Possible atrial septal aneurysm. Mitral Valve * There is mild mitral annular calcification. * There is no mitral valve stenosis. * There is trace mitral regurgitation. Tricuspid Valve * The tricuspid valve is not well visualized, but is grossly normal. * No significant tricuspid stenosis. * There is trace tricuspid regurgitation. Aortic Valve * Aortic valve sclerosis mild, without significant aortic valvular stenosis. * The aortic valve is trileaflet. * There is discrete nodular thickening of the right coronary cusp. * No hemodynamically significant valvular aortic stenosis. * There is no significant aortic regurgitation. Pulmonic Valve * The pulmonary valve is inadequately visualized, but the Doppler data is adequate for interpretation. * Pulmonic stenosis is absent. * Mild pulmonic valvular regurgitation. Great Vessels * The aortic root and proximal ascending aorta are normal sized. Pericardium/Pleural * There is no pericardial effusion. Great Vessels * IVC 2.1 cm, < 50% change with respiration. Est RA 8 mmHg. Left Ventricular Diastolic Function * Grade I diastolic dysfunction, (abnormal relaxation pattern). Consultations: Neurology (Kimberly Monge, PA-C) Medication Reconciliation New Medications: Dipyridamole/Aspirin (Aggrenox 25-200 mg) 1 Cap Cap 1 CAP PO BID for 30 Days, #60 CAP Continued Medications: Calcium/Vitamin D (Os-Kapil 500 Plus D) Tab 1 TAB PO QAM, TAB Cholecalciferol (Vitamin D3) 1,000 Unit Tab 1000 UNITS PO QPM for 90 Days, TAB 3 Refills Coenzyme Q10 (Ubidecarenone) (Coq-10 100 mg) 1 Cap Cap 100 MG PO QPM Cyanocobalamin (Vitamin B12) 1,000 Mcg Tab 1000 MCG PO QPM Efinaconazole (Jublia) 10 % Veronica 1 DOSE TOP PRN Fish Oil ([place]-3) 1 Ea Cap 1 CAP PO QPM, CAP Folic Acid (Folvite) 1 Mg Tab 1 MG PO BID, TAB Pravastatin (Pravachol ) 20 Mg Tab 20 MG PO Q2D, TAB Discontinued Medications: Clopidogrel (Plavix) 75 Mg Tab 75 MG PO QAM, 0 Refills Referrals At Discharge Follow up Referrals: [facility] Referral - Within 1-2 Weeks with José Miguel Reza M.D. Neurologist Referral - Within a Month with Jocelynn Sims D.O. Discharge Exam Review of Systems: Constitutional: No fever, No chills, No sweats, No weakness, No fatigue Respiratory: No cough, No shortness of breath, No hemoptysis Cardiovascular: No chest pain, No edema, No palpitations Abdomen: + constipation, No pain, No nausea, No vomiting, No diarrhea Musculoskeletal: No joint pain, No muscle pain, No swelling, No calf pain Genitourinary - Male: No hematuria, No dysuria Neurologic: No weakness, No numbness/tingling Psychiatric: No depression symptoms, No anxiety Endocrine: No fatigue Hematologic / Lymphatic: No abnormal bleeding/bruising Integumentary: No rash, No itch, No new/changing skin lesions Physical Exam: General Appearance: no apparent distress Eyes: normal inspection, PERRL ENT: hearing grossly normal Neck: supple Respiratory/Chest: lungs clear, no respiratory distress, no accessory muscle use Cardiovascular: regular rate, rhythm Abdomen / GI: normal bowel sounds, non tender, soft Extremities: no calf tenderness, no pedal edema Neurologic/Psychiatric: no motor/sensory deficits, alert, normal mood/affect , oriented x 3 Skin: normal color, warm/dry, no rash (Kimberly Monge, PASanjayC) Hospital Course Admission H&P: This is a 86 yo M with PMHx of CAD s/p AL, prostate cancer s/p XRT x 2 cycles in 2013 s/p Lupron therapy, radiation prostatitis, status post R radical colectomy with with ileocecal anastomosis for adhesions, and tubulovillous adenoma of the colon, radiation proctitis and hyperhomocystinemia who presents to the ED found to have a left cerebellar subacute infarct. The patient notes that approximately one week ago had a right ear fullness for which he saw his PCP, and was found to have cerumen impaction which was irrigated in the office. The patient continued to have aural fullness so was referred to ENT where he underwent cerumen removal via suction. He reports that they noted some possible trauma to the eardrum. On Saturday the patient started to feel ill, and thought that he had food poisoning as he was feeling nauseous and vomited. He also experienced a 30 minutes of bilateral blurred vision, which then resolved. He denies double vision or loss of a visual field. He notes that when walking there was a "left-sided pull", and felt motion sick when he attempted to walk. He remained in bed and did not seek medical attention at this time. On Saturday morning patient reports his balance and ability to walk straight was improved, he had no blurred vision, but only felt minimally better. He presented to a [facility] and was referred to the ER. He drove himself to the ER today as his balance was not affected. The last time the patient Plavix was on Saturday. He notes that he takes pravastatin every other day due to severe muscle cramping. CT was completed in the ER showing a 4.4 cm subacute cerebellar infarct. His vital signs are stable with blood pressure 134/64, heart rate = 51, afebrile. Labs are WNL. Physical Exam Vital Signs Date Time Temp Pulse Resp B/P (MAP) Pulse Ox O2 Delivery O2 Flow Rate FiO2 09/24/16 16:33 51 17 134/64 98 Room Air 09/24/16 15:50 47 09/24/16 14:26 36.7 63 20 131/76 94 Room Air General: awake, alert, no apparent distress Head: Normocephalic, atraumatic ENT: PERRL, EOMI, peripheral visual bunn tested and are intact bilaterally, no pharyngeal exudate, mucous membranes moist Chest: Clear to auscultation, on room air, no adventitious breath sounds Cardiac: + Bradycardic, no murmur, no JVD, normal peripheral pulses, good capillary refill Abdominal: NABS x 4 quadrants, soft, nontender to palpation, no rebound, guarding or tenderness Extremities: Normal inspection, no peripheral edema or erythema, calfs nontender to palpation Psych: Normal mood and affect Neuro: AAO x 3, CN II-XII tested and are intact, strength intact bilaterally in all extremities and related 5/5, finger to nose testing intact, no motor deficits, speech is clear, no peripheral sensory deficits Left cerebellar subacute infarct as seen on CT scan- 4.4 cm moderate cerebellar subacute infarct: - Admitted to telemetry for cardiac monitoring- no acute events - Obtained ECHO, carotid US, head CT, Brain MRI, head MRA, and neck CTA - Neuro checks q4 hours and PRN w/ neurological changes - Plavix daily changed to Aggrenox 1 capsule BID - Pravastatin 20 mg HS Q2D changed to 10 mg HS - PT and OT/speech therapy evaluations - Checked lipid panel and hgb A1C- at goal ranges - Follow routine CBC and PRP - Neurology consulted, appreciate recommendations -- Discontinue Plavix and initiate Aggrenox for secondary stroke prevention -- If patient does not tolerate Aggrenox, could go back to taking Plavix versus Plavix + Aspirin 81 mg daily -- Continue low dose pravastatin, as cholesterol numbers are within goal -- Blood pressure recommendations for the first month post hospital discharge 150/90-130/80, and after that blood pressure recommendations 130/80- 110/70 -- Total cholesterol goal 100- 200 and LDL goal less than 100 (at goal) -- Hemoglobin A1c goal less than 7 (at goal) -- Encourage cardiovascular exercise at least 3 times a week for 30 minutes -- Follow-up in neurology clinic in 1 month for post stroke hospital follow- up -- Recommend Holter monitor as an outpatient to rule out paroxysmal A. 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 Reza: - Plavix changed to Aggrenox per neurology recommendations - Continue Pravastatin h/o right radical colectomy and ileocecal anastomosis 09/20/2015 - Polyps were found to be benign tubulovillous adenoma with 12 negative lymph nodes h/o prostate carcinoma s/p XRT therapy in October 2013 x 2 cycles and Lupron therapy, h/o significant radiation proctitis- follows w/ Dr. Masters and Dr. Colmenares Hyperlipidemia w/ intolerance to Rosuvastatin, Simvastatin, and high dose statins- - Continue Pravastatin, Fish oil, and Co-enzyme Q10 - Lipid panel reviewed Homocystinemia: Continue Folic acid and B12 DVT prophylaxis: Heparin 5000 units SQ q8 hrs, DREW and SCDs Code Status: LEVEL I, FULL Dispo: Discharge to home Total Time Spent: Greater than 30 minutes This includes examination of the patient, discharge planning, medication reconciliation, and communication with other providers. (Kimberly Monge PA-C) Attending Attestation: Pt seen/examined, chart reviewed, discharge care plan d/w CARLI Monge. I agree w/ the ramirez components of her discharge summary. Very pleasant 86yo male with history of CAD who was admitted with a left-sided subacute cerebellar stroke. Presenting symptoms included transient visual deficits and mild cerebellar dysfunction with a sensation / "pull" to the left side with walking. During his stay he underwent an extensive stroke work-up including MRI/MRA brain , carotid duplex, CTA neck, echo, etc. MRA brain appeared to show a left-sided PICA occlusion which would be consistent with his stroke. CTA neck failed to confirm the PICA occlusion, however. ECHO appeared to show a PFO with possible atrial septal aneurysm. No thrombus was identified. Telemetry was NORMAL (in particular, no a. fib). He was seen by Dr. Jocelynn Sims, neurology, and aggrenox in he of plavix was recommended for secondary stroke prevention. She also advised 30-day event monitor to look for a. fib. Seen by PT/OT and cleared for home. He is interested in outpatient PT, however. Discharge exam - gen - nad heart - RRR lungs - CTA b/l abd - soft ext - no edema neuro - minimal dysmetria finger/nose/finger maneuver on left hand; scant ataxia with heel-lane maneuver on left; gait largely normal Teja Cota MD (Teja Cota MD) Discharge Instructions Please refer to the electronic Patient Visit Report (Discharge Instructions) for additional information. (Kimberly Monge PA-C) Follow-Up Follow-up with PCP scheduled for October 03 Follow-up with Neurology in 1 month Please follow-up/keep all of your subspecialty appointments (Kimberly Monge PA-C) 1. [facility] [place] Neurology - Dr. Jocelynn Sims - October 25 at 2:40pm 2. [facility] - October 03 at 11:00am (Teja Cota MD) Additional Copies To Rafita Pastrana III, CRNP; Jocelynn Sims D.O.; José Miguel Reza M.D.
[2016-09-26 10:36] VITALS: BP 143/89; PULSE 64; TEMP 36.5; O2SAT 95
[2016-09-26] MEDS ORDERED: PRAV20TA2 PO (11:49)
--- NOTE | 2016-09-26 12:17 | Pharmacy Progress Note ---
Pharmacist Stroke Counseling Date of Service Sep 26, 2016. Scope Pharmacy has been consulted to provide medication discharge counseling for this patient admitted with ischemic stroke/hemorrhagic stroke/ transient ischemic attack as per the Pharmacist Discharge Counseling for Stroke Patients Protocol. Medications on Discharge New Medications: Dipyridamole/Aspirin (Aggrenox 25-200 mg) 1 Cap Cap 1 CAP PO BID for 30 Days, #60 CAP 5 Refills Pravastatin Sodium (Pravachol) 20 Mg Tab 0.5 TAB PO DAILY for 30 Days, #15 TAB 5 Refills Continued Medications: Calcium/Vitamin D (Os-Kapil 500 Plus D) Tab 1 TAB PO QAM, TAB Cholecalciferol (Vitamin D3) 1,000 Unit Tab 1000 UNITS PO QPM for 90 Days, TAB 3 Refills Coenzyme Q10 (Ubidecarenone) (Coq-10 100 mg) 1 Cap Cap 100 MG PO QPM Cyanocobalamin (Vitamin B12) 1,000 Mcg Tab 1000 MCG PO QPM Efinaconazole (Jublia) 10 % Veronica 1 DOSE TOP PRN Fish Oil ([place]-3) 1 Ea Cap 1 CAP PO QPM, CAP Folic Acid (Folvite) 1 Mg Tab 1 MG PO BID, TAB Discontinued Medications: Clopidogrel (Plavix) 75 Mg Tab 75 MG PO QAM, 0 Refills Pravastatin (Pravachol ) 20 Mg Tab 20 MG PO Q2D, TAB Action The above medications, specifically ones for stroke treatment/prophylaxis, have been reviewed in detail with the patient and/or patient sales representative meats(s) prior to discharge. This includes indication, common adverse reactions, drug interactions, and medication administration. Medication counseling has been employed using the teach-back method to ensure understanding. Outcome The patient and/or patient sales representative meats(s) ( - Nilam) have demonstrated understanding of the medications. Please note, they are aware that the pharmacist will call them within 72 hours post-discharge to confirm that the appropriate medications are being taken and answer any further medication related questions the patient might have at that time. Contact information Individual to be contacted: Carlos or his (Nilam) Relationship to patient (if applicable): n/a Phone number: [phone] or cell [phone] Best time to call: anytime Additional comments: Patient and very friendly to talk with today. Reviewed all new medications and patient/ demonstrated understanding of medications. Patient reports history of intolerance to Aspirin. Informed patient that Aggrenox contains Aspirin, but a low amount. Informed the patient that if he develops an upset stomach, he could try taking the medication with food. He did get one dose while in hospital, which he reports no upset stomach. Also educated patient that aggrenox may cause headache, which usually goes away after about a week. I told the patient to be careful with using OTC medications and to check if they contain aspirin since the aggrenox also contains it. Spoke with Dr. Cota and he wants the patient to trial pravastatin 10 mg once daily (had been taking 20 mg every other day due to muscle pain intolerance) and patient is agreeable. Patient reports not having bowel movement while in hospital. He usually takes metamucil at home which generally works for him. I informed him that he could take that and if he continues to not have a bowel movement to contact his doctor. Reviewed with patient that he is to stop taking plavix and that the aggrenox is in place of the plavix. Thank you for allowing pharmacy to be involved in the care of this patient. Please call [phone] or [phone] with any additional questions
--- NOTE | 2016-10-03 13:57 | Pharmacy Progress Note ---
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 Discharge counseling pharmacist contact information has already been provided to the patient should questions arise. Thank you for allowing us to be involved in the care of this patient.
== END 2016-09-26 12:51 | disposition home or self-care (01) | DRG 66 ==
LOC: C.EDB 14:23 → C.2T 18:57 → ENRESERV 19:17
PROVIDERS: ADMIT Family Medicine; ATTEND Internal Medicine
DX: I63.542 Cerebral infarction due to unspecified occlusion or stenosis of left cerebellar artery (principal); H61.23 Impacted cerumen, bilateral; I25.10 Atherosclerotic heart disease of native coronary artery without angina pectoris; I25.2 Old myocardial infarction; Z95.5 Presence of coronary angioplasty implant and graft; R00.1 Bradycardia, unspecified; E78.5 Hyperlipidemia, unspecified; Z88.8 Allergy status to other drugs, medicaments and biological substances; Z85.46 Personal history of malignant neoplasm of prostate; Z90.79 Acquired absence of other genital organ(s); Z92.3 Personal history of irradiation; Z90.49 Acquired absence of other specified parts of digestive tract; Z79.02 Long term (current) use of antithrombotics/antiplatelets; Z79.899 Other long term (current) drug therapy

== ENCOUNTER 2016-09-28 11:06 | Inpatient (IN) | payer BC, OTHER ==
[~2016-09-28] VITALS: Ht 167.6 cm; Wt 72.0 kg
[~2016-09-28 11:06] MED LIST changes: +AGG PO; -CLOP1TAB15 PO; -FLV1 PO; +FOLI1TAB7 PO; -PRAV20TA PO; +PRAV20TA2 PO; -TADA10TA PO
[2016-09-28] MEDS ORDERED: COEN100C11 PO (11:37)
[2016-09-28] MEDS ORDERED: ONDANSETRON INJ 2 MG/ML 2 ML VIAL IV STA (11:40)
[2016-09-28] MEDS ORDERED: SODIUM CHLORIDE 0.9% 500ML 500 ML IV STA (11:40)
[2016-09-28] MEDS ORDERED: MECLIZINE HCL 25 MG TAB PO STA (11:40)
[2016-09-28] MEDS ORDERED: DIAZEPAM INJ 5 MG/ML 2 ML CARP IV STA (11:40)
--- NOTE | 2016-09-28 11:57 | DIAGNOSTIC IMAGING REPORT ---
CHEST ONE VIEW PORTABLE CLINICAL HISTORY: Stroke mental status change COMPARISON STUDY: 08/19/2015 FINDINGS: The bones soft tissues and hemidiaphragms are normal. The cardiomediastinal silhouette is normal. The lungs are clear. The pulmonary vasculature is normal. IMPRESSION: Negative chest. The above report was generated using voice recognition software. It may contain grammatical, syntax or spelling errors. Electronically signed by: Jesús Adams M.D. 09/28/2016 11:55 AM Dictated Date/Time: 09/28/2016 11:55 AM
[2016-09-28] MEDS: SODIUM CHLORIDE 0.9% 1000ML 1,000 ML IV SCH ×3 (12:01→17:24)
--- NOTE | 2016-09-28 12:19 | EMERGENCY ROOM VISIT NOTE ---
History Report prepared by Bear: Yareli Hazel Under the Supervision of: Dr. Devon Rodriguez M.D. First contact with patient: 11:33 Chief Complaint: DIZZY Stated Complaint: DIZZINESS/LOSS OF COORDINATION Nursing Triage Summary: Pt arrives ALS for evaluation of sudden onset of N,V, dizziness and loss of balance while in the showere this am. Pt was just D/C'd from [facility] on September 26. Pt was dx with CVA and experienced the same s/s with that admission. History of Present Illness The patient is a 86 year old male who presents to the Emergency Room with complaints of constant dizziness that started this morning. The patient came to the ED via ambulance. The patient's states that the patient was in the shower when he called out to her because he suddenly became dizzy. She helped the patient get to the bed. He sat down, became nauseous then he vomited. The patient did not fall but he was off balance. The patient was seen in the ED for the same symptoms 4 days ago. He was admitted for a stroke work-up and discharged 2 days ago. The patient's states that the patient did have a CVA. Source of History: patient Onset: this morning Position: head Quality: other (dizziness) Timing: constant Associated Symptoms: + nausea, + vomiting Review of Systems See HPI for pertinent positives & negatives. A total of 10 systems reviewed and were otherwise negative. Past Medical & Surgical Medical Problems: (1) Colon polyp (2) Intractable nausea and vomiting (3) L cerebellar subacute stroke (4) Myocardial infarction (5) Prostate cancer Surgical Problems: (1) History of appendectomy Family History Heart disease Social History Smoking Status: Never Smoker Alcohol Use: occasionally Marital Status: Housing Status: lives with significant other Occupation Status: retired Current/Historical Medications Scheduled Calcium/Vitamin D (Os-K[place]il 500 Plus D), 1 TAB PO QAM Cholecalciferol (Vitamin D3), 1,000 UNITS PO QPM Coenzyme Q10 (Ubidecarenone) (Coq-10), 1 CAP PO QPM Cyanocobalamin (Vitamin B12), 1,000 MCG PO QPM Dipyridamole/Aspirin (Aggrenox 25-200 mg), 1 CAP PO BID Efinaconazole (Jublia), 1 DOSE TOP PRN Fish Oil ([place]-3), 1 CAP PO QPM Folic Acid (Folvite), 1 MG PO BID Pravastatin Sodium (Pravachol), 0.5 TAB PO DAILY Allergies Coded Allergies: Simvastatin (Verified Allergy, Unknown, MAJOR CRAMPING, 09/28/16) Rosuvastatin (Verified Adverse Reaction, Severe, SPASMS,CRAMPING,ALTERED MENTAL STATUS, 09/28/16) Aspirin (Verified Adverse Reaction, Mild, UNCOATED FULL-STR ASA-GI UPSET, 09/28/16) Physical Exam Vital Signs Date Time Temp Pulse Resp B/P (MAP) Pulse Ox O2 Delivery O2 Flow Rate FiO2 09/28/16 14:00 53 09/28/16 13:06 51 16 95 09/28/16 13:01 129/70 09/28/16 12:56 146/74 09/28/16 12:31 130/65 09/28/16 12:21 51 15 90 09/28/16 12:19 45 18 128/77 91 Room Air 09/28/16 12:14 128/77 09/28/16 12:06 54 13 88 09/28/16 12:00 138/66 09/28/16 11:51 52 23 97 09/28/16 11:50 Room Air 09/28/16 11:36 47 19 97 09/28/16 11:35 120/57 09/28/16 11:33 45 17 120/57 95 Room Air 09/28/16 11:21 48 09/28/16 11:21 48 18 09/28/16 11:20 36.5 50 17 134/70 98 Room Air 09/28/16 11:11 134/70 Physical Exam GENERAL: Patient is a healthy-appearing well-nourished male. Patient is unable to pick his head up off of the bed. HEAD: Normocephalic atraumatic EYES: Ocular movements intact pupils equal and react to light OROPHARYNX mucous membranes are moist no exudates present no erythema or edema present NECK: Supple no nuchal rigidity CHEST: Good equal expansion LUNGS: Clear and equal to auscultation CARDIAC: Normal S1 and S2 ABDOMEN: Soft nontender no guarding BACK: No CVA tenderness EXTREMITIES: No pain upon palpation normal muscle strength in all groups no clubbing cyanosis or edema NEURO: Patient is following commands and answering questions appropriately. Alert and oriented x3 Cranial Nerves 2-12 grossly intact Medical Decision & Procedures ER Provider Diagnostic Interpretation: Radiology results as stated below per my review and radiologist interpretation: CHEST ONE VIEW PORTABLE FINDINGS: The bones soft tissues and hemidiaphragms are normal. The cardiomediastinal silhouette is normal. The lungs are clear. The pulmonary vasculature is normal. IMPRESSION: Negative chest. The above report was generated using voice recognition software. It may contain grammatical, syntax or spelling errors. Electronically signed by: Jesús Adams M.D. 09/28/2016 11:55 AM Dictated Date/Time: 09/28/2016 11:55 AM HEAD WITHOUT CONTRAST (CT) Findings: The paranasal sinuses and mastoid air cells are clear. Left cerebellar infarct unchanged from the prior exam. No new or interval findings. Ventricular system is midline. No acute intracranial hemorrhage. Impression: Unchanged exam. Left cerebellar infarct. No new or interval findings. No acute intracranial hemorrhage. The above report was generated using voice recognition software. It may contain grammatical, syntax or spelling errors. Electronically signed by: Jesús Adams M.D. 09/28/2016 12:56 PM Dictated Date/Time: 09/28/2016 12:54 PM Laboratory Results 09/28/16 12:15 Red Blood Count 4.36, Mean Corpuscular Volume 97.9, Mean Corpuscular Hemoglobin 35.8, Mean Corpuscular Hemoglobin Concent 36.5, Mean Platelet Volume 9.0, Neutrophils (%) (Auto) 72.7, Lymphocytes (%) (Auto) 16.4, Monocytes (%) (Auto) 8.0, Eosinophils (%) (Auto) 2.5, Basophils (%) (Auto) 0.2, Neutrophils # (Auto) 4.65, Lymphocytes # (Auto) 1.05, Monocytes # (Auto) 0.51, Eosinophils # (Auto) 0.16, Basophils # (Auto) 0.01 09/28/16 12:15 Test 09/28/16 12:15 09/28/16 12:18 White Blood Count 6.39 K/uL (4.8-10.8) Red Blood Count 4.36 M/uL (4.7-6.1) Hemoglobin 15.6 g/dL (14.0-18.0) Hematocrit 42.7 % (42-52) Mean Corpuscular Volume 97.9 fL (80-100) Mean Corpuscular Hemoglobin 35.8 pg (25-34) Mean Corpuscular Hemoglobin Concent 36.5 g/dl (32-36) Platelet Count 187 K/uL (130-400) Mean Platelet Volume 9.0 fL (7.4-10.4) Neutrophils (%) (Auto) 72.7 % Lymphocytes (%) (Auto) 16.4 % Monocytes (%) (Auto) 8.0 % Eosinophils (%) (Auto) 2.5 % Basophils (%) (Auto) 0.2 % Neutrophils # (Auto) 4.65 K/uL (1.4-6.5) Lymphocytes # (Auto) 1.05 K/uL (1.2-3.4) Monocytes # (Auto) 0.51 K/uL (0.11-0.59) Eosinophils # (Auto) 0.16 K/uL (0-0.5) Basophils # (Auto) 0.01 K/uL (0-0.2) RDW Standard Deviation 46.8 fL (36.4-46.3) RDW Coefficient of Variation 13.0 % (11.5-14.5) Immature Granulocyte % (Auto) 0.2 % Immature Granulocyte # (Auto) 0.01 K/uL (0.00-0.02) Prothrombin Time 10.7 SECONDS (9.0-12.0) Prothromb Time International Ratio 1.0 (0.9-1.1) Activated Partial Thromboplast Time 23.2 SECONDS (21.0-31.0) Partial Thromboplastin Ratio 0.9 Anion Gap 7.0 mmol/L (3-11) Est Creatinine Clear Calc Drug Dose 41.3 ml/min Estimated GFR () 64.0 Estimated GFR (Non- 55.2 BUN/Creatinine Ratio 15.4 (10-20) Calcium Level 8.7 mg/dl (8.5-10.1) Total Creatine Kinase 45 U/L (39-308) Creatine Kinase MB 2.0 ng/ml (0.5-3.6) Creatine Kinase MB Ratio 4.4 (0-3.0) Troponin I < 0.015 ng/ml (0-0.045) Bedside Prothrombin Time INR 1.0 (0.9-1.1) Bedside Glucose 116 mg/dl (70-99) Labs reviewed by ED physician. Medications Administered Medications (Trade) Dose Ordered Sig/Narcisa Route Start Time Stop Time Status Last Admin Dose Admin Sodium Chloride 1,000 ml @ 50 mls/hr Q20H IV 09/28/16 11:40 10/28/16 11:39 09/28/16 13:13 50 MLS/HR Sodium Chloride 500 ml @ 999 mls/hr Q31M STAT IV 09/28/16 11:40 09/28/16 12:10 DC 09/28/16 12:02 999 MLS/HR Ondansetron HCl (Zofran Inj) 4 mg NOW STAT IV 09/28/16 11:40 09/28/16 11:42 DC 09/28/16 12:01 4 MG Diazepam (Valium Inj) 2.5 mg NOW STAT IV 09/28/16 11:40 09/28/16 11:42 DC 09/28/16 12:01 2.5 MG Meclizine HCl (Antivert Tab) 25 mg NOW STAT PO 09/28/16 11:40 09/28/16 11:42 DC 09/28/16 12:01 25 MG ECG Indication: weakness Rate (beats per minute): 50 Rhythm: sinus bradycardia Findings: 1st degree AV block, no acute ischemic change, no ectopy ED Course 1137: Past medical records reviewed. The patient was evaluated in room C7. A complete history and physical examination was performed. 1140: Ordered Meclizine HCl 25 mg PO, Diazepam 2.5 mg IV, Zofran Inj 4 mg IV, Sodium Chloride 500 ml @ 999 mls/hr IV, Sodium Chloride 1000 ml @ 50 mls/hr IV 1306: Upon reexamination the patient is resting comfortably. I discussed results and treatment plan with the patient. She verbalizes agreement and understanding. The patient will be evaluated for further management. 1319: I discussed the patient's case with Dr. Zabala of the [facility], she has agreed to evaluate the patient for further management and care. She asked me to discuss the patient's case with Dr. Whittington - Neurology. 1337: I discussed the patient's case with Dr. Whittington - Neurology, she recommends repeating a MRI. Medical Decision Differential diagnosis: Etiologies such as benign positional vertigo, dehydration, hypovolemia, anemia, tumor, infection, hypoglycemia, electrolyte abnormalities, cardiac sources, intracerebral event, toxicologic, neurologic, as well as others were entertained. This 6-year-old male presents emergency department complaining of severe dizziness. I will note that the patient had the same exact symptoms when he presented with his stroke. An IV was established, the patient given normal saline bolus, Valium. Repeat examination revealed no improvement in the patient 's symptoms. I will note that the patient is not a TPA candidate as he just had a stroke. The case with the hospitalist service patient. Patient and family were in agreement with the treatment plan. Medication Reconcilliation Current Medication List: was personally reviewed by me Blood Pressure Screening Patient's blood pressure: Elevated blood pressure Blood pressure disposition: Did not require urgent referral Consults Time Called: 1310 Consulting Physician: Dr. Sagarrio Grace [facility] Returned Call: [phone] I discussed the patient's case with Dr. Zabala of the [facility], she has agreed to evaluate the patient for further management and care. She asked me to discuss the patient's case with Dr. Nelsy Negrete. Additional Consults: Time Called: 1322 Consulted Physician: Dr. Nelsy Negrete Returned Call: [phone] Additional Comments: I discussed the patient's case with Dr. Nelsy Negrete, she recommends repeating a MRI. Impression Primary Impression: Dizziness Scribe Attestation The scribe's documentation has been prepared under my direction and personally reviewed by me in its entirety. I confirm that the note above accurately reflects all work, treatment, procedures, and medical decision making performed by me. Departure Information Dispostion Being Evaluated By Hospitalist Referrals Rafita Pastrana III, CRNP (PCP) Patient Instructions My [facility]
[2016-09-28 12:25] LABS: BASO % 0.2 %; BASO ABS # 0.01 K/uL (0-0.2); COMPLETE YES; EOS % 2.5 %; HEMATOCRIT 42.7 % (42-52); IG% 0.2 %; LYMPH % 16.4 %; LYMPH ABS # 1.05 K/uL (1.2-3.4); MEAN CELL VOLUME 97.9 fL (80-100); MEAN CORPUSCULAR HEMOGLOBIN 35.8 pg (25-34); MEAN CORPUSCULAR HGB CONC 36.5 g/dl (32-36); NEUT % 72.7 %; PLATELET COUNT 187 K/uL (130-400); RED BLOOD COUNT 4.36 M/uL (4.7-6.1); WHITE BLOOD COUNT 6.39 K/uL (4.8-10.8)
[2016-09-28 12:36] LABS: PARTIAL THROMBOPLASTIN RATIO 0.9; PROTHROMBIN TIME (PATIENT) 10.7 SECONDS (9.0-12.0)
[2016-09-28 12:50] LABS: BLOOD UREA NITROGEN 19 mg/dl (7-18); BUN/CREATININE RATIO 15.4 (10-20); CALCIUM 8.7 mg/dl (8.5-10.1); CARBON DIOXIDE 26 mmol/L (21-32); CHLORIDE 108 mmol/L (98-107); GLUCOSE 133 mg/dl (70-99); POTASSIUM 3.7 mmol/L (3.5-5.1); SODIUM 141 mmol/L (136-145)
[2016-09-28 12:55] LABS: CKMB/CK RATIO 4.4 (0-3.0)
--- NOTE | 2016-09-28 12:57 | DIAGNOSTIC IMAGING REPORT ---
HEAD WITHOUT CONTRAST (CT) CT DOSE: 614.27 mGy.cm HISTORY: Mental status change Stroke TECHNIQUE: Multiaxial CT images of the head were performed without the use of intravenous contrast. A dose lowering technique was utilized adhering to the principles of ALARA. Comparison: 09/24/2016 Findings: The paranasal sinuses and mastoid air cells are clear. Left cerebellar infarct unchanged from the prior exam. No new or interval findings. Ventricular system is midline. No acute intracranial hemorrhage. Impression: Unchanged exam. Left cerebellar infarct. No new or interval findings. No acute intracranial hemorrhage. The above report was generated using voice recognition software. It may contain grammatical, syntax or spelling errors. Electronically signed by: Jesús Adams M.D. 09/28/2016 12:56 PM Dictated Date/Time: 09/28/2016 12:54 PM
--- NOTE | 2016-09-28 14:03 | History and Physical ---
History & Physical Date & Time of Service: Sep 28, 2016 at 14:02 Chief Complaint: Dizziness/Loss Of Coordination Primary Care Physician: Rafita Pastrana III, CRNP History of Present Illness Source: patient, family This is an 86 yo M who was admitted by myself earlier this week for a new left subacute cerebellar infarct. He has a PMHx of CAD s/p DE, prostate cancer s/p XRT x 2 cycles in 2013 s/p Lupron therapy, radiation prostatitis, status post R radical colectomy with with ileocecal anastomosis for adhesions, and tubulovillous adenoma of the colon, radiation proctitis and hyperhomocystinemia who presents to the ED with an acute attack of vertigo and nausea while he was in the shower at 10 AM. Patient reports that he hasn't vomited approximately 5 times. He had a very unsteady gait and required assistance from his in getting out of the shower, and then 911 was called. He denies any left-sided lean with ambulation like he had on previous admission, he also denies any changes in his vision, smell, headache, pain, shortness of breath, weakness. Upon discharge from last admission he had passed all PT/OT evaluations, and was stable for discharge to home. Here in the ER the patient had a CT of the head which showed no acute findings, no hemorrhage. The ER physician had spoken with Dr. Zelaya, with neurology, and she has requested an MRI of the brain which has been ordered. Labs are within normal limits. Vital signs are stable. 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 Right radical colectomy and leocecal anastomosis Tubulovillous adenoma Surgical Problems: (1) History of appendectomy Status: Resolved Family History Heart disease Social History Smoking Status: Never Smoker Smokeless Tobacco Use: No Alcohol Use: 1 glass of wine daily Drug Use: none Marital Status: Housing status: lives with family Occupational Status: retired Immunizations History of Influenza Vaccine: Yes History of Tetanus Vaccine?: Yes History of Pneumococcal: No History of Hepatitis B Vaccine: Yes Multi-Drug Resistant Organisms History of MDRO: No Allergies Coded Allergies: Simvastatin (Verified Allergy, Unknown, MAJOR CRAMPING, 09/28/16) Rosuvastatin (Verified Adverse Reaction, Severe, SPASMS,CRAMPING,ALTERED MENTAL STATUS, 09/28/16) Aspirin (Verified Adverse Reaction, Mild, UNCOATED FULL-STR ASA-GI UPSET, 09/28/16) Home Medications Scheduled Calcium/Vitamin D (Os-Kapil 500 Plus D), 1 TAB PO QAM Cholecalciferol (Vitamin D3), 1,000 UNITS PO QPM Coenzyme Q10 (Ubidecarenone) (Coq-10), 1 CAP PO QPM Cyanocobalamin (Vitamin B12), 1,000 MCG PO QPM Dipyridamole/Aspirin (Aggrenox 25-200 mg), 1 CAP PO BID Efinaconazole (Jublia), 1 DOSE TOP PRN Fish Oil (Gillham-3), 1 CAP PO QPM Folic Acid (Folvite), 1 MG PO BID Pravastatin Sodium (Pravachol), 0.5 TAB PO DAILY Review of Systems Constitutional: No fever, sweats or chills Eyes: No diplopia, no worsening or blurred vision ENT: normal hearing, no changes in ability to smell, no trouble swallowing Respiratory: No cough, sputum, dyspnea at rest or on exertion Cardiovascular: No chest pain, tightness or palpitations Abdomen + nausea, +vomiting, + last bowel movement was 4d ago, pt normally has BM QD. Musculoskeletal: No joint pain, calf pain, swelling Neurologic: + unsteady gait this morning, See HPI. No numbness/tingling Psychiatric: No anxiety or depression Skin: No rash or itch Physical Exam Vital Signs Date Time Temp Pulse Resp B/P (MAP) Pulse Ox O2 Delivery O2 Flow Rate FiO2 09/28/16 14:00 53 09/28/16 13:06 51 16 95 09/28/16 13:01 129/70 09/28/16 12:56 146/74 09/28/16 12:31 130/65 09/28/16 12:21 51 15 90 09/28/16 12:19 45 18 128/77 91 Room Air 09/28/16 12:14 128/77 7/21/17 12:06 54 13 88 09/28/16 12:00 138/66 09/28/16 11:51 52 23 97 09/28/16 11:50 Room Air 09/28/16 11:36 47 19 97 09/28/16 11:35 120/57 09/28/16 11:33 45 17 120/57 95 Room Air 09/28/16 11:21 48 09/28/16 11:21 48 18 09/28/16 11:20 36.5 50 17 134/70 98 Room Air 09/28/16 11:11 134/70 General Appearance: WD/WN, + mild distress (appears to have dry heaves when asked to do strength testing with lower leg or any other acute movement) Head: normocephalic, atraumatic Eyes: PERRL, EOMI ENT: normal ENT inspection, pharynx normal Neck: supple, no JVD Respiratory/Chest: chest non-tender, lungs clear, no respiratory distress, no accessory muscle use Cardiovascular: regular rate, rhythm, no murmur, normal peripheral pulses, + bradycardia (heart rate = 50 bpm) Abdomen/GI: non tender, soft, + pertinent finding (hypoactive bowel sounds) Extremities/Musculoskelatal: no calf tenderness, no pedal edema, normal range of motion Neurologic/Psych: marble rubber II-XII nml as tested, no motor/sensory deficits, alert, normal reflexes, oriented x 3, + pertinent finding (patient is able to perform cerebellar tests with finger to nose touch and [id number] without difficulty) Skin: normal color, warm/dry Diagnostics Laboratory Results Results Past 24 Hours Test 09/28/16 12:15 09/28/16 12:18 Range/Units White Blood Count 6.39 4.8-10.8 K/uL Red Blood Count 4.36 4.7-6.1 M/uL Hemoglobin 15.6 14.0-18.0 g/dL Hematocrit 42.7 42-52 % Mean Corpuscular Volume 97.9 80-100 fL Mean Corpuscular Hemoglobin 35.8 25-34 pg Mean Corpuscular Hemoglobin Concent 36.5 32-36 g/dl Platelet Count 187 130-400 K/uL Mean Platelet Volume 9.0 7.4-10.4 fL Neutrophils (%) (Auto) 72.7 % Lymphocytes (%) (Auto) 16.4 % Monocytes (%) (Auto) 8.0 % Eosinophils (%) (Auto) 2.5 % Basophils (%) (Auto) 0.2 % Neutrophils # (Auto) 4.65 1.4-6.5 K/uL Lymphocytes # (Auto) 1.05 1.2-3.4 K/uL Monocytes # (Auto) 0.51 0.11-0.59 K/uL Eosinophils # (Auto) 0.16 0-0.5 K/uL Basophils # (Auto) 0.01 0-0.2 K/uL RDW Standard Deviation 46.8 36.4-46.3 fL RDW Coefficient of Variation 13.0 11.5-14.5 % Immature Granulocyte % (Auto) 0.2 % Immature Granulocyte # (Auto) 0.01 0.00-0.02 K/uL Prothrombin Time 10.7 9.0-12.0 SECONDS Prothromb Time International Ratio 1.0 0.9-1.1 Activated Partial Thromboplast Time 23.2 21.0-31.0 SECONDS Partial Thromboplastin Ratio 0.9 Sodium Level 141 136-145 mmol/L Potassium Level 3.7 3.5-5.1 mmol/L Chloride Level 108 98-107 mmol/L Carbon Dioxide Level 26 21-32 mmol/L Anion Gap 7.0 3-11 mmol/L Blood Urea Nitrogen 19 7-18 mg/dl Creatinine 1.20 0.60-1.40 mg/dl Est Creatinine Clear Calc Drug Dose 41.3 ml/min Estimated GFR () 64.0 Estimated GFR (Non- 55.2 BUN/Creatinine Ratio 15.4 10-20 Random Glucose 133 70-99 mg/dl Calcium Level 8.7 8.5-10.1 mg/dl Total Creatine Kinase 45 39-308 U/L Creatine Kinase MB 2.0 0.5-3.6 ng/ml Creatine Kinase MB Ratio 4.4 0-3.0 Troponin I < 0.015 0-0.045 ng/ml Bedside Prothrombin Time INR 1.0 0.9-1.1 Bedside Glucose 116 70-99 mg/dl Diagnostic Radiology HEAD WITHOUT CONTRAST (CT) CT DOSE: 614.27 mGy.cm HISTORY: Mental status change Stroke TECHNIQUE: Multiaxial CT images of the head were performed without the use of intravenous contrast. A dose lowering technique was utilized adhering to the principles of ALARA. Comparison: 09/24/2016 Findings: The paranasal sinuses and mastoid air cells are clear. Left cerebellar infarct unchanged from the prior exam. No new or interval findings. Ventricular system is midline. No acute intracranial hemorrhage. Impression: Unchanged exam. Left cerebellar infarct. No new or interval findings. No acute intracranial hemorrhage. The above report was generated using voice recognition software. It may contain grammatical, syntax or spelling errors. Electronically signed by: Jesús Adams M.D. 09/28/2016 12:56 PM Dictated Date/Time: 09/28/2016 12:54 PM The status of this report is Signed. CHEST ONE VIEW PORTABLE CLINICAL HISTORY: Stroke mental status change COMPARISON STUDY: 08/19/2015 FINDINGS: The bones soft tissues and hemidiaphragms are normal. The cardiomediastinal silhouette is normal. The lungs are clear. The pulmonary vasculature is normal. IMPRESSION: Negative chest. The above report was generated using voice recognition software. It may contain grammatical, syntax or spelling errors. Electronically signed by: Jesús Adams M.D. 09/28/2016 11:55 AM Dictated Date/Time: 09/28/2016 11:55 AM The status of this report is Signed. EKG Vent. rate 50 BPM MO interval 212 ms QRS duration 98 ms QT/QTc 482/439 ms P-R-T axes 69 12 63 Sinus bradycardia with 1st degree A-V block Otherwise normal ECG When compared with ECG of 24-SEP-2016 15:18, MO interval has increased Impression Assessment and Plan New onset of intractable nausea and vomiting Hx of Left cerebellar infarct 09/24/16 - Admit to telemetry - CT repeated today showing no acute changes, report from 09/26 with 4.4 cm moderate cerebellar subacute infarct - Neuro checks every 4 hours and when necessary with neurological changes - Neurology consulted: Spoke with Dr. Whittington over the phone who requests MRI brain, carotid Dopplers and echocardiogram were completed few days ago, no need to repeat. - allow for permissive hypertension 175/95-150/80 - Antiemetics with valium, meclizine and zofran for nausea and vertigo prn - Continue Aggrenox 1 capsule BID - Pravastatin 20 mg HS Q2D changed to 10 mg HS during last admission - PT /OT evals - Lipids and A1C in range - Follow CBC and PRP Diastolic CHF - ECHO 09/25/16 showed grade I diastolic dysfunction with mild aortic valve sclerosis without stenosisi, trace MR, mild MO, trace TR. Positive saline contrast study suggestive of interatrial shunt, suspect PFO. Possible atrial septal aneurysm CAD s/p DE with stents x 2 in 2002 - Follow with Dr. Reza as an outpatient - Plavix changed to Aggrenox per neurology recommendations - Continue Pravastatin - Neurology recommended Holter monitor at time of discharge as an outpatient to rule out paroxysmal A. fib, and consider 30-day cardiac event monitor if Holter monitor is unremarkable - may need cardiology consultation History of right radical colectomy and ileocecal anastomosis - Completed 09/20/2015. 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 He has taken some miralax but hasn't helped. - Will start on miralax daily, dulcolax BID History of prostate carcinoma - s/p XRT therapy in October 2013 x 2 cycles and Lupron therapy - follow with Dr. Masters and Dr. Colmenares Hyperlipidemia w/ intolerance to rosuvastatin and simvastatin - Patient has significant allergies to rosuvastatin and simvastatin as noted above. - Continue pravastatin 10 mg daily at bedtime Homocystinemia -Continue folic acid and B12 DVT ppx: Heparin 5000 units SQ q8 hrs, DREW and SCDs Code Status: LEVEL I, FULL Disposition: Patient from home, lives with , PT OT evaluations, likely able to return home once medically cleared. Level of Care Telemetry Resuscitation Status FULL RESUSCITATION VTE Prophylaxis VTE Risk Assessment Done? Y/N: Yes Risk Level: Low Given or contraindicated: Other Anticoagulation, T.E.D. 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 Discussed with CARLI Reyez and agree with findings and plan as documented in the note. Any exceptions or clarifications are listed here: Patient readmitted for worsening dizziness, and intractable nausea with vomiting after discharge 2 days ago for large left cerebellar acute CVA. MRI of the brain shortly after admission showed evolving left cerebellar acute stroke with extension medially. Case discussed with neurology and results were discussed with the patient and his . Vitals reviewed Lying in bed with head turned to the right, any movement reproduces dizziness and nausea Regular rate and rhythm, no murmurs gallops or rubs Lungs clear to auscultation bilaterally Neuro: EOMI, PERRL, strength full throughout 86-year-old male readmitted with extension of his previous large left cerebellar infarct. -Increase normal saline to 25 ML's per hour to keep blood pressure above 150/80 -Observe for signs and symptoms of hemorrhagic conversion and with low threshold to repeat noncontrast head CT -Continue Aggrenox, statin -Appreciate neurology consultation -Okay to give heparin for DVT prophylaxis Documented By: Nighat Zabala
[2016-09-28] MEDS ORDERED: PHARMACIST DISCHARGE MED REC CONSULT PRN (14:15)
[2016-09-28] MEDS ORDERED: ACETAMINOPHEN 325 MG TAB PO PRN (14:15)
[2016-09-28] MEDS ORDERED: DIAZEPAM INJ 5 MG/ML 2 ML CARP IV PRN (14:45)
[2016-09-28] MEDS ORDERED: BISACODYL 10 MG SUPP PR STA (14:57)
[2016-09-28] MEDS ORDERED: IV FLUIDS COMPLETED PRN (15:15)
--- NOTE | 2016-09-28 16:26 | DIAGNOSTIC IMAGING REPORT ---
MRI OF THE BRAIN WITHOUT AND WITH IV CONTRAST CLINICAL HISTORY: Dizziness, disorientation, vomiting, balance issues. Possible acute stroke. Your prostate carcinoma. COMPARISON STUDY: 09/24/2016 TECHNIQUE: MRI of the brain was performed from the vertex to the skull base utilizing various T1 and T2 weighted sequences. Following the IV administration of 7 mL of Gadavist contrast, additional enhanced images were obtained. FINDINGS: Sagittal T1, axial diffusion, proton density and T2 weighted axial, coronal FLAIR, and pre and post axial T1-weighted images were acquired. These were supplemented with post gadolinium coronal T1 weighted images. No intra or extra-axial mass lesions are visualized. There is an enlarging area of restricted water diffusion involving the inferior aspect of the left cerebellar hemisphere. The findings are indicative of a subacute infarct laterally, an acute infarct medially. There is minimal mass effect with slight effacement of the posterior lateral medulla. No additional areas of acute infarction are visualized. There is no evidence of ventricular dilatation. Proton density T2-weighted and FLAIR images reveal scattered foci of increased T2 signal within the white matter, likely on a small vessel basis. There is edema in the subcutaneous portion the patient's left cervical infarct. There are no abnormal flow voids. There is no evidence of pathologic enhancement. IMPRESSION: 1. Interval extension of the patient's left cerebellar infarct which now involves the entire inferior aspect of the left cerebellar hemisphere. The lateral component is subacute, and the medial component is acute. There is minor mass effect on the posterior lateral medulla. Electronically signed by: Trip Roach M.D. 09/28/2016 4:25 PM Dictated Date/Time: 09/28/2016 4:19 PM
[2016-09-28 16:45] VITALS: BP 157/82; PULSE 63; TEMP 36.6; O2SAT 95
[2016-09-28] MEDS ORDERED: BISACODYL 10 MG SUPP ONE (17:15)
[2016-09-28 17:46] VITALS: BP 157/82; PULSE 63; TEMP 36.6; O2SAT 95; Ht 167.6 cm; Wt 72.0 kg
[2016-09-28] MEDS: ONDANSETRON INJ 2 MG/ML 2 ML VIAL IV PRN (18:29)
[2016-09-28] MEDS ORDERED: NURSING VERBAL MED ORDER ONE (19:15)
[2016-09-28 19:42] VITALS: BP 159/83; PULSE 57; TEMP 36.4; O2SAT 97
[2016-09-28] MEDS ORDERED: NURSING DECISION MEDICATION ORDER SCH ×2 (20:15)
[2016-09-28] MEDS: PRAVASTATIN SOD 10 MG TAB PO SCH (20:30)
[2016-09-28] MEDS: DIPYRIDAMOLE/ASPIRIN CAP PO SCH (20:30)
[2016-09-28] MEDS: BISACODYL 5 MG TABEC PO SCH (20:31)
[2016-09-28] MEDS: CYANOCOBALAMIN 500 MCG TAB (VIT B-12) PO SCH (20:31)
[2016-09-28] MEDS: MECLIZINE HCL 25 MG TAB PO PRN (20:32)
[2016-09-28] MEDS: HEPARIN SOD 5000 UNIT/0.5 ML CARP SQ SCH (21:31)
[2016-09-28 23:26] VITALS: BP 138/67; PULSE 63; TEMP 36.8; O2SAT 97
[2016-09-29 01:25] LABS: URINE APPEARANCE CLEAR (CLEAR); URINE BILIRUBIN NEG (NEG); URINE COLOR YELLOW; URINE NITRITE NEG (NEG); URINE SPECIFIC GRAVITY 1.012 (1.000-1.030); UROBILINOGEN NEG (NEG); ZZUR CULT IF INDIC CLEAN CATCH NO
[2016-09-29 01:32] LABS: MANUAL MICROSCOPIC REQUIRED? NO; REVIEW REQ? NO
[2016-09-29] MEDS: SODIUM CHLORIDE 0.9% 1000ML 1,000 ML IV SCH ×3 (02:29→18:16)
[2016-09-29 03:59] VITALS: BP 107/63; PULSE 57; TEMP 36.6; O2SAT 96
[2016-09-29 05:50] LABS: BASO % 0.2 %; BASO ABS # 0.01 K/uL (0-0.2); COMPLETE YES; EOS % 0.9 %; IG% 0.2 %; LYMPH % 15.3 %; MEAN CELL VOLUME 98.6 fL (80-100); MEAN CORPUSCULAR HGB CONC 34.5 g/dl (32-36); MEAN PLATELET VOLUME 8.6 fL (7.4-10.4); NEUT % 72.4 %; PLATELET COUNT 185 K/uL (130-400); RED BLOOD COUNT 4.26 M/uL (4.7-6.1); WHITE BLOOD COUNT 6.53 K/uL (4.8-10.8)
[2016-09-29 06:17] LABS: BUN/CREATININE RATIO 11.7 (10-20); CALCIUM 7.9 mg/dl (8.5-10.1); CREATININE 1.1 mg/dl (0.60-1.40)
[2016-09-29] MEDS: HEPARIN SOD 5000 UNIT/0.5 ML CARP SQ SCH ×3 (06:33→20:43)
[2016-09-29 08:05] VITALS: BP 122/65; PULSE 50; TEMP 36.8; O2SAT 97
[2016-09-29] MEDS: DIPYRIDAMOLE/ASPIRIN CAP PO SCH ×2 (08:11→20:41)
[2016-09-29] MEDS: POLYETHYLENE (MIRALAX) 17 GM PACK PO SCH (08:11)
[2016-09-29] MEDS: BISACODYL 5 MG TABEC PO SCH ×2 (08:11→20:41)
[2016-09-29] MEDS: MECLIZINE HCL 25 MG TAB PO PRN (08:12)
[2016-09-29] MEDS ORDERED: PRAVASTATIN SOD 10 MG TAB PO SCH (09:00)
--- NOTE | 2016-09-29 10:29 | Neurology Consultation ---
Neurology Consultation Date of Consultation: Sep 29, 2016. Attending Physician: Nighat Zabala MD Primary Care Physician: Rafita Pastrana III, CRNP Reason for Consultation: Worsening dizziness and vomiting History of Present Illness Source: patient, spouse, hospital records This is an 86-year-old male who was just recently seen earlier this week for evaluation and treatment of acute left cerebellar stroke. Patient was discharged on Saturday with minimal deficits. His Plavix was changed to Aggrenox for secondary stroke prevention. He denied any medication side effects with the switch of this medication. There was no GI upset or significant headaches. Patient reports that Saturday and he was doing well at home. He denied any trouble eating or drinking. Denied any dehydration. When he got up Saturday he had increased dizziness, nausea, and discoordination. As such she returned to the emergency room Saturday for reevaluation. Patient was admitted for worsening symptoms and my recommendations over the phone was to repeat an MRI of his brain to make sure there is no increased brain edema or new strokes. MRI of the brain report and images were reviewed by myself. There is no increased brain edema but there didn't appear to be new extension of his previous stroke compared to previous imaging. There did not appear to be any new strokes in a different vascular territory. Based upon my recommendations, but patient was also placed on IV fluids to help keep his blood pressure up and to over hydrate him to help any additional at risk tissue remained stable and well perfused. Overall patient reports that his symptoms were exactly the same as his initial stroke symptoms, but they don't seem to be resolving like they did before. No new numbness or focal weakness. No facial droop. No trouble talking or swallowing. Patient has maybe a slight headache. Patient was set up with an outpatient 30 day event monitor, but unfortunately only had an on for 1 day before he had to take it often come to the hospital. Past Medical/Surgical History Medical Problems: (1) CVA (cerebral vascular accident) Status: Acute (2) Dizziness Status: Acute (3) Vertigo Status: Acute Past medical history significant for CAD status post CT, prostate cancer status post radiation, and colon cancer status post right colectomy Patient also reports a history of malaria, shoulder dislocation, and rotator cuff tear. 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 Normally independent in his activities of daily living. Denies any tobacco use. Drinks one glass of wine per day. No illegal drug use or supplement use. Smoking Status: Never smoker Smokeless Tobacco Use: No Alcohol Use: 1 glass of wine daily Drug Use: none Marital Status: Housing Status: lives with significant other Occupation Status: retired Allergies Coded Allergies: Simvastatin (Verified Allergy, Unknown, MAJOR CRAMPING, 09/28/16) Rosuvastatin (Verified Adverse Reaction, Severe, SPASMS,CRAMPING,ALTERED MENTAL STATUS, 09/28/16) Aspirin (Verified Adverse Reaction, Mild, UNCOATED FULL-STR ASA-GI UPSET, 09/28/16) Current Inpatient Medications Current Inpatient Medications Medications (Trade) Dose Ordered Sig/Narcisa Route Start Time Stop Time Status Last Admin Dose Admin Miscellaneous Information (Pharmacist Discharge Med Rec Consult) 1 ea UD PRN N/A 09/28/16 14:15 10/28/16 14:14 Heparin Sodium (Porcine) (Heparin Sq 5000 Unit/0.5ml) 5,000 unit Q8 SQ 09/28/16 22:00 10/28/16 21:59 09/29/16 06:33 5,000 UNIT Sodium Chloride 1,000 ml @ 125 mls/hr Q8H IV 09/28/16 14:02 10/28/16 14:01 09/29/16 02:29 125 MLS/HR Acetaminophen (Tylenol Tab) 650 mg Q4H PRN PO 09/28/16 14:15 10/28/16 14:14 Ondansetron HCl (Zofran Inj) 4 mg Q6H PRN IV 09/28/16 14:15 10/28/16 14:14 09/28/16 18:29 4 MG Polyethylene (Miralax Powder Packet) 17 gm DAILY PO 09/29/16 09:00 10/29/16 08:59 09/29/16 08:11 17 GM Bisacodyl (Dulcolax Tab) 5 mg BID PO 09/28/16 21:00 10/28/16 20:59 09/29/16 08:11 5 MG Dipyridamole/ Aspirin (Aggrenox 200MG/ 25MG Cap) 1 cap BID PO 09/28/16 21:00 10/28/16 20:59 09/29/16 08:11 1 CAP Folic Acid (Folvite Tab) 1 mg BID PO 09/28/16 21:00 10/28/16 20:59 09/29/16 08:12 1 MG Cyanocobalamin (Vitamin B-12 Tab) 1,000 mcg QPM PO 09/28/16 21:00 10/28/16 20:59 09/28/16 20:31 1,000 MCG Diazepam (Valium Inj) 5 mg Q8 PRN IV 09/28/16 14:45 10/28/16 14:44 Meclizine HCl (Antivert Tab) 25 mg Q8 PRN PO 09/28/16 14:45 10/28/16 14:44 09/29/16 08:12 25 MG Miscellaneous (Iv Fluids Completed) 1 ea PRN PRN N/A 09/28/16 15:15 09/28/17 15:14 Pravastatin Sodium (Pravachol Tab) 10 mg HS PO 09/28/16 21:00 10/28/16 20:59 09/28/16 20:30 10 MG Review of Systems Complete review of systems otherwise negative except for the above-noted history of present illness Physical Exam Vital Signs (Past 24 Hrs): Date Time Temp Pulse Resp B/P (MAP) Pulse Ox O2 Delivery O2 Flow Rate FiO2 09/29/16 08:05 36.8 50 18 122/65 (84) 97 Room Air 09/29/16 07:40 Room Air 09/29/16 04:00 Room Air 09/29/16 03:59 36.6 57 18 107/63 (78) 96 Room Air 09/29/16 00:00 Room Air 09/28/16 23:26 36.8 63 18 138/67 (90) 97 Room Air 09/28/16 20:00 Room Air 09/28/16 19:42 36.4 57 18 159/83 (108) 97 Room Air 09/28/16 17:46 36.6 63 18 157/82 95 Room Air 09/28/16 16:45 36.6 63 18 157/82 (107) 95 Room Air 09/28/16 16:02 54 18 125/76 96 7/21/17 14:00 53 09/28/16 13:06 51 16 95 09/28/16 13:01 129/70 09/28/16 12:56 146/74 09/28/16 12:31 130/65 09/28/16 12:21 51 15 90 09/28/16 12:19 45 18 128/77 91 Room Air 09/28/16 12:14 128/77 09/28/16 12:06 54 13 88 09/28/16 12:00 138/66 09/28/16 11:51 52 23 97 09/28/16 11:50 Room Air 09/28/16 11:36 47 19 97 09/28/16 11:35 120/57 09/28/16 11:33 45 17 120/57 95 Room Air 09/28/16 11:21 48 09/28/16 11:21 48 18 09/28/16 11:20 36.5 50 17 134/70 98 Room Air 09/28/16 11:11 134/70 Gen.: Patient is alert and sitting in bed, in no acute distress. HEENT: Normocephalic /atraumatic, no scleral icterus Heart: Regular rate and rhythm Extremities: No gross deformities or rashes noted Neurological examination: Mental status: Patient is alert and oriented x3. Attention and concentration normal for the situation. Good fund of knowledge. Able to give her own history. Speech is fluent without any dysarthria or aphasia noted Cranial nerve: Funduscopic examination was unremarkable. No papilledema. Pupils equally round and reactive to light. Extraocular muscles intact without nystagmus. No facial asymmetry noted. Facial sensation intact. Tongue is midline. Good palatal elevation. Good shoulder shrug bilaterally. Hearing grossly intact to voice. Strength: 5/5 both proximal and distally in all extremities. There is no arm drift. Tone is normal. Sensation: Grossly intact to light touch in all extremities. Deep tendon reflexes: +1 in bilateral biceps, brachioradialis and patellar. Coordination: Patient had good finger to nose without dysmetria. Good heel-to- lane with possibly some mild ataxia on the left Gait: Wide-based and appeared fairly unstable Laboratory Results Past 24 Hours: 09/29/16 05:33 Red Blood Count 4.26, Mean Corpuscular Volume 98.6, Mean Corpuscular Hemoglobin 34.0, Mean Corpuscular Hemoglobin Concent 34.5, Mean Platelet Volume 8.6, Neutrophils (%) (Auto) 72.4, Lymphocytes (%) (Auto) 15.3, Monocytes (%) (Auto) 11.0, Eosinophils (%) (Auto) 0.9, Basophils (%) (Auto) 0.2, Neutrophils # (Auto ) 4.73, Lymphocytes # (Auto) 1.00, Monocytes # (Auto) 0.72, Eosinophils # (Auto ) 0.06, Basophils # (Auto) 0.01 09/29/16 05:33 Test 09/28/16 12:15 09/28/16 12:18 09/29/16 00:24 09/29/16 02:00 Prothrombin Time 10.7 SECONDS (9.0-12.0) Prothromb Time International Ratio 1.0 (0.9-1.1) Activated Partial Thromboplast Time 23.2 SECONDS (21.0-31.0) Partial Thromboplastin Ratio 0.9 Total Creatine Kinase 45 U/L (39-308) Creatine Kinase MB 2.0 ng/ml (0.5-3.6) Creatine Kinase MB Ratio 4.4 (0-3.0) Bedside Prothrombin Time INR 1.0 (0.9-1.1) Bedside Glucose 116 mg/dl (70-99) Urine Color YELLOW Urine Appearance CLEAR (CLEAR) Urine pH 7.0 (4.5-7.5) Urine Specific [place] 1.012 (1.000-1.030) Urine Protein NEG (NEG) Urine Glucose (UA) NEG (NEG) Urine Ketones NEG (NEG) Urine Occult Blood NEG (NEG) Urine Nitrite NEG (NEG) Urine Bilirubin NEG (NEG) Urine Urobilinogen NEG (NEG) Urine Leukocyte Esterase NEG (NEG) Troponin I 0.027 ng/ml (0-0.045) Test 09/29/16 05:33 White Blood Count 6.53 K/uL (4.8-10.8) Red Blood Count 4.26 M/uL (4.7-6.1) Hemoglobin 14.5 g/dL (14.0-18.0) Hematocrit 42.0 % (42-52) Mean Corpuscular Volume 98.6 fL (80-100) Mean Corpuscular Hemoglobin 34.0 pg (25-34) Mean Corpuscular Hemoglobin Concent 34.5 g/dl (32-36) Platelet Count 185 K/uL (130-400) Mean Platelet Volume 8.6 fL (7.4-10.4) Neutrophils (%) (Auto) 72.4 % Lymphocytes (%) (Auto) 15.3 % Monocytes (%) (Auto) 11.0 % Eosinophils (%) (Auto) 0.9 % Basophils (%) (Auto) 0.2 % Neutrophils # (Auto) 4.73 K/uL (1.4-6.5) Lymphocytes # (Auto) 1.00 K/uL (1.2-3.4) Monocytes # (Auto) 0.72 K/uL (0.11-0.59) Eosinophils # (Auto) 0.06 K/uL (0-0.5) Basophils # (Auto) 0.01 K/uL (0-0.2) RDW Standard Deviation 47.2 fL (36.4-46.3) RDW Coefficient of Variation 13.0 % (11.5-14.5) Immature Granulocyte % (Auto) 0.2 % Immature Granulocyte # (Auto) 0.01 K/uL (0.00-0.02) Anion Gap 3.0 mmol/L (3-11) Est Creatinine Clear Calc Drug Dose 45.1 ml/min Estimated GFR () 71.1 Estimated GFR (Non- 61.3 BUN/Creatinine Ratio 11.7 (10-20) Calcium Level 7.9 mg/dl (8.5-10.1) Imaging As noted above in history of present illness Impression This is a 86-year-old male with a 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 Per my review of the imaging it appears the patient has extended his previous stroke (which sometimes can happen after a stroke when at risk tissue around the previous stroke is unable to keep up with perfusion demand.). I do not think that the patient has had a new ischemic vascular territory stroke. Known stroke risk factors include dyslipidemia, hyper-homocystinemia, and hypertension. Plan Continue Aggrenox without change. This medication was recently initiated on Saturday and I do not think there is any reason to change it at this time. I decided to order a CTA of the head and neck to make sure that there is no additional vascular etiologies or new occlusions that would be concerning for a different ischemic process occurring. Recommend continuing IV fluids for at least for the next day for hydration and hemodilution which will help prevent any further stroke extension. Follow-up PT/OT and speech therapies for discharge planning. Blood pressure recommendations while in hospital 175/95-150/80 Stroke risk factor modifications and recommendations: Blood pressure recommendations for the first month post hospital discharge 150/ 90-130/80, and after that blood pressure recommendations 130/80-110/70 Total cholesterol goal 100- 200 and LDL goal less than 100 Hemoglobin A1c goal less than 7 Encourage cardiovascular exercise at least 3 times a week for 30 minutes. 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 fib Follow-up in neurology clinic for post stroke hospital follow-up. (Should already have an appointment in October) If there is any questions or concerns, feel free to call/page me.
[2016-09-29] MEDS ORDERED: OPTIRAY 320 IV PRN (10:45)
[2016-09-29 11:00] VITALS: BP 132/67; PULSE 51; TEMP 36.6; O2SAT 99
--- NOTE | 2016-09-29 11:55 | DIAGNOSTIC IMAGING REPORT ---
ANGIOGRAPHY HEAD COMBO CLINICAL HISTORY: Extension of the left cerebellar stroke. COMPARISON STUDY: Head CT and MRI of the brain September 28, 2016 and MRA of the head September 24, 2016. TECHNIQUE: Unenhanced and arterial phase images of the head were obtained. Injection of 120 cc of Optiray 320 IV was uneventful. Sagittal and coronal reconstructions were viewed as well as maximal intensity projections on an independent 3-D workstation. FINDINGS: No acute intracranial hemorrhage is identified. A large infarct involving the inferior left cerebellar hemisphere is noted. This has increased in extent since CT of September 28, 2016. Mass effect has increased with mild midline shift and mild mass effect upon the fourth ventricle as well as the left lateral aspect of the medulla. There is no hydrocephalus. Ventricular system is otherwise stable. There are no extra axial collections. There are no significant calvarial abnormalities. The bilateral M1, M2, A1 and A2 segments are patent. No abrupt vessel cut off is identified within the posterior circulation. Visualized portions of the left posterior inferior cerebellar artery appear patent. There is no intracranial aneurysm. IMPRESSION: 1. Interval increase in extent of the acute infarct of the left cerebellar hemisphere since head CT of September 28, 2016. Increase in associated mass effect with effacement of the fourth ventricle and mass effect upon the left posterior aspect of the medulla. No hydrocephalus. No evidence for hemorrhagic conversion. 2. No abrupt cut off identified within the intracranial circulation by CTA. Unremarkable head CTA. Electronically signed by: Bin Collins M.D. 09/29/2016 11:54 AM Dictated Date/Time: 09/29/2016 11:40 AM
--- NOTE | 2016-09-29 12:00 | DIAGNOSTIC IMAGING REPORT ---
CT ANGIOGRAPHY OF THE NECK WITH CONTRAST CLINICAL HISTORY: Extension of left cerebellar stroke. Evaluate for new occlusion. COMPARISON STUDY: Neck CTA September 25, 2016. Technique: CT angiography of the carotid and vertebral arteries was obtained using Twyxt 320 IV and 3D reconstruction on an independent workstation. NASCET criteria was utilized. A dose lowering technique was utilized adhering to the principles of ALARA. CT DOSE: 1319.65 mGy.cm Findings: The bilateral common carotid, internal carotid and vertebral arteries are patent. There is mild atherosclerotic plaque within each carotid bulb without significant stenosis. There is no evidence for dissection within the major vasculature of the neck. Lung apices are clear. There is no cervical lymphadenopathy. No suspicious skeletal lesions are identified. Note is again made of the left inferior cerebellar infarct. No abrupt vessel cut off is identified on this examination IMPRESSION: 1. Unremarkable CTA of the neck for age. No significant stenosis. No dissection. 2. Left inferior cerebellar acute infarct, better depicted on the head CT. Electronically signed by: Bin Collins M.D. 09/29/2016 11:58 AM Dictated Date/Time: 09/29/2016 11:54 AM
[2016-09-29 15:51] VITALS: BP 109/63; PULSE 47; TEMP 36.9; O2SAT 95
--- NOTE | 2016-09-29 20:27 | Hospitalist Progress Note ---
Hospitalist Progress Note Date of Service Sep 29, 2016. Subjective Pt evaluation today including: conversation w/ patient, conversation w/ family Patient with no new complaints still has dizziness when he stands Objective Vital Signs Date Time Temp Pulse Resp B/P (MAP) Pulse Ox O2 Delivery O2 Flow Rate FiO2 09/29/16 20:00 Room Air 09/29/16 16:00 Room Air 09/29/16 15:51 36.9 47 18 109/63 (78) 95 Room Air 09/29/16 12:00 Room Air 09/29/16 11:00 36.6 51 18 132/67 (88) 99 Room Air 09/29/16 08:05 36.8 50 18 122/65 (84) 97 Room Air 09/29/16 07:40 Room Air 09/29/16 04:00 Room Air 09/29/16 03:59 36.6 57 18 107/63 (78) 96 Room Air 09/29/16 00:00 Room Air 09/28/16 23:26 36.8 63 18 138/67 (90) 97 Room Air Physical Exam General Appearance: no apparent distress Eyes: normal inspection ENT: hearing grossly normal Neck: supple, trachea midline Respiratory/Chest: lungs clear Cardiovascular: regular rate, rhythm Abdomen: normal bowel sounds Extremities: normal range of motion Neurologic/Psychiatric: alert Laboratory Results Last 24 Hours Test 09/29/16 00:24 09/29/16 02:00 09/29/16 05:33 Urine Color YELLOW Urine Appearance CLEAR Urine pH 7.0 Urine Specific [place] 1.012 Urine Protein NEG Urine Glucose (UA) NEG Urine Ketones NEG Urine Occult Blood NEG Urine Nitrite NEG Urine Bilirubin NEG Urine Urobilinogen NEG Urine Leukocyte Esterase NEG Troponin I 0.027 ng/ml White Blood Count 6.53 K/uL Red Blood Count 4.26 M/uL Hemoglobin 14.5 g/dL Hematocrit 42.0 % Mean Corpuscular Volume 98.6 fL Mean Corpuscular Hemoglobin 34.0 pg Mean Corpuscular Hemoglobin Concent 34.5 g/dl Platelet Count 185 K/uL Mean Platelet Volume 8.6 fL Neutrophils (%) (Auto) 72.4 % Lymphocytes (%) (Auto) 15.3 % Monocytes (%) (Auto) 11.0 % Eosinophils (%) (Auto) 0.9 % Basophils (%) (Auto) 0.2 % Neutrophils # (Auto) 4.73 K/uL Lymphocytes # (Auto) 1.00 K/uL Monocytes # (Auto) 0.72 K/uL Eosinophils # (Auto) 0.06 K/uL Basophils # (Auto) 0.01 K/uL RDW Standard Deviation 47.2 fL RDW Coefficient of Variation 13.0 % Immature Granulocyte % (Auto) 0.2 % Immature Granulocyte # (Auto) 0.01 K/uL Sodium Level 141 mmol/L Potassium Level 4.0 mmol/L Chloride Level 109 mmol/L Carbon Dioxide Level 29 mmol/L Anion Gap 3.0 mmol/L Blood Urea Nitrogen 13 mg/dl Creatinine 1.10 mg/dl Est Creatinine Clear Calc Drug Dose 45.1 ml/min Estimated GFR () 71.1 Estimated GFR (Non- 61.3 BUN/Creatinine Ratio 11.7 Random Glucose 89 mg/dl Calcium Level 7.9 mg/dl Assessment and Plan Hx of Left cerebellar infarct 09/24/16 Neurology note reviewed no new findings on MRI and CTA of the head shows no aneurysm - Continue Aggrenox 1 capsule BID - Pravastatin 20 mg HS Q2D changed to 10 mg HS during last admission - PT /OT evals - Lipids and A1C in range - Follow CBC and PRP Diastolic CHF - ECHO 09/25/16 showed grade I diastolic dysfunction with mild aortic valve sclerosis without stenosisi, trace MR, mild MT, trace TR. Positive saline contrast study suggestive of interatrial shunt, suspect PFO. Possible atrial septal aneurysm CAD s/p LA with stents x 2 in 2002 - Follow with Dr. Reza as an outpatient - Plavix changed to Aggrenox per neurology recommendations - Continue Pravastatin - Neurology recommended Holter monitor at time of discharge as an outpatient to rule out paroxysmal A. fib, and consider 30-day cardiac event monitor if Holter monitor is unremarkable - may need cardiology consultation History of right radical colectomy and ileocecal anastomosis - Completed 09/20/2015. 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 He has taken some miralax but hasn't helped. - Will start on miralax daily, dulcolax BID History of prostate carcinoma - s/p XRT therapy in October 2013 x 2 cycles and Lupron therapy - follow with Dr. Masters and Dr. Colmenares Hyperlipidemia w/ intolerance to rosuvastatin and simvastatin - Patient has significant allergies to rosuvastatin and simvastatin as noted above. - Continue pravastatin 10 mg daily at bedtime Homocystinemia -Continue folic acid and B12 DVT ppx: Heparin 5000 units SQ q8 hrs, DREW and SCDs Code Status: LEVEL I, FULL Disposition: Patient from home, lives with , PT OT evaluations, likely able to return home once medically cleared. Level of Care Telemetry Resuscitation Status FULL RESUSCITATION VTE Prophylaxis VTE Risk Assessment Done? Y/N: Yes Risk Level: Low Given or contraindicated: Other Anticoagulation, T.E.D. Stockings, SCD's
[2016-09-29 20:36] VITALS: BP 112/60; PULSE 54; TEMP 37.4; O2SAT 94
[2016-09-29] MEDS: CYANOCOBALAMIN 500 MCG TAB (VIT B-12) PO SCH (20:41)
[2016-09-29] MEDS: PRAVASTATIN SOD 10 MG TAB PO SCH (20:41)
[2016-09-29 23:18] VITALS: BP 126/66; PULSE 54; TEMP 37.2; O2SAT 94
[2016-09-30] VITALS (7 sets, daily range): BP systolic 126–158; BP diastolic 64–80; PULSE 45–61; TEMP 36.7–37.4; O2SAT 94–96
[2016-09-30] MEDS: SODIUM CHLORIDE 0.9% 1000ML 1,000 ML IV SCH ×3 (02:11→18:02)
[2016-09-30] MEDS: HEPARIN SOD 5000 UNIT/0.5 ML CARP SQ SCH ×2 (06:12→13:59)
[2016-09-30 06:39] LABS: BASO % 0.2 %; BASO ABS # 0.01 K/uL (0-0.2); COMPLETE YES; EOS % 1.9 %; HEMATOCRIT 39.2 % (42-52); IG% 0.2 %; LYMPH % 16.5 %; LYMPH ABS # 0.94 K/uL (1.2-3.4); MEAN CELL VOLUME 99.5 fL (80-100); MEAN CORPUSCULAR HEMOGLOBIN 34.3 pg (25-34); MEAN CORPUSCULAR HGB CONC 34.4 g/dl (32-36); MEAN PLATELET VOLUME 9.4 fL (7.4-10.4); MONO % 10.5 %; NEUT % 70.7 %; PLATELET COUNT 164 K/uL (130-400); RED BLOOD COUNT 3.94 M/uL (4.7-6.1)
[2016-09-30 07:09] LABS: BUN/CREATININE RATIO 9.6 (10-20); CALCIUM 7.6 mg/dl (8.5-10.1); CREATININE 1.2 mg/dl (0.60-1.40); POTASSIUM 3.7 mmol/L (3.5-5.1)
[2016-09-30] MEDS: DIPYRIDAMOLE/ASPIRIN CAP PO SCH (07:47)
[2016-09-30] MEDS: POLYETHYLENE (MIRALAX) 17 GM PACK PO SCH (07:47)
[2016-09-30] MEDS: BISACODYL 5 MG TABEC PO SCH (07:49)
--- NOTE | 2016-09-30 11:30 | Neurology Progress Notes ---
Neurology Progress Note Date of Service Sep 30, 2016. Subjective Patient reports that his symptoms are stable but no significant improvement. Still feels a little bit dizzy especially if he is up and moving. No blurred vision or double vision. No new numbness or weakness. No trouble swallowing or speaking. Was having significant headaches last night but reports no headaches this morning. Objective Date Time Temp Pulse Resp B/P (MAP) Pulse Ox O2 Delivery O2 Flow Rate FiO2 09/30/16 08:00 Room Air 09/30/16 07:22 36.8 53 18 143/70 (94) 95 Room Air 09/30/16 04:00 Room Air 09/30/16 03:59 37.4 61 18 126/67 (86) 94 Room Air 09/30/16 00:00 Room Air 09/29/16 23:18 37.2 54 20 126/66 (86) 94 Room Air 09/29/16 20:36 37.4 54 20 112/60 (77) 94 Room Air 09/29/16 20:00 Room Air 09/29/16 16:00 Room Air 09/29/16 15:51 36.9 47 18 109/63 (78) 95 Room Air 09/29/16 12:00 Room Air Last 24 Hours Test 09/30/16 05:45 White Blood Count 5.70 K/uL Red Blood Count 3.94 M/uL Hemoglobin 13.5 g/dL Hematocrit 39.2 % Mean Corpuscular Volume 99.5 fL Mean Corpuscular Hemoglobin 34.3 pg Mean Corpuscular Hemoglobin Concent 34.4 g/dl Platelet Count 164 K/uL Mean Platelet Volume 9.4 fL Neutrophils (%) (Auto) 70.7 % Lymphocytes (%) (Auto) 16.5 % Monocytes (%) (Auto) 10.5 % Eosinophils (%) (Auto) 1.9 % Basophils (%) (Auto) 0.2 % Neutrophils # (Auto) 4.03 K/uL Lymphocytes # (Auto) 0.94 K/uL Monocytes # (Auto) 0.60 K/uL Eosinophils # (Auto) 0.11 K/uL Basophils # (Auto) 0.01 K/uL RDW Standard Deviation 47.6 fL RDW Coefficient of Variation 13.0 % Immature Granulocyte % (Auto) 0.2 % Immature Granulocyte # (Auto) 0.01 K/uL Sodium Level 143 mmol/L Potassium Level 3.7 mmol/L Chloride Level 110 mmol/L Carbon Dioxide Level 28 mmol/L Anion Gap 5.0 mmol/L Blood Urea Nitrogen 12 mg/dl Creatinine 1.20 mg/dl Est Creatinine Clear Calc Drug Dose 41.3 ml/min Estimated GFR () 64.0 Estimated GFR (Non- 55.2 BUN/Creatinine Ratio 9.6 Random Glucose 91 mg/dl Calcium Level 7.6 mg/dl Imaging: CTA reviewed. No new vascular territory occlusion, but there is increase in brain edema compared to initial scans Exam: Gen.: Patient is alert and sitting in bed, in no acute distress. HEENT: Normocephalic /atraumatic, no scleral icterus Extremities: No gross deformities or rashes noted Neurological examination: Mental status: Patient is alert and oriented x3. Attention and concentration normal for the situation. Good fund of knowledge. Able to give her own history. Speech is fluent without any dysarthria or aphasia noted Cranial nerve: Pupils equally round and reactive to light. Extraocular muscles intact without nystagmus. No facial asymmetry noted. Facial sensation intact. Tongue is midline. Good palatal elevation. Hearing grossly intact to voice. Strength: 5/5 both proximal and distally in all extremities. There is no arm drift. Tone is normal. Sensation: Grossly intact to light touch in all extremities. Coordination: Patient had good finger to nose with min dysmetria on the left. Good [id number] with mild ataxia on the left Current Inpatient Medications Medications (Trade) Dose Ordered Sig/Narcisa Route Start Time Stop Time Status Last Admin Dose Admin Miscellaneous Information (Pharmacist Discharge Med Rec Consult) 1 ea UD PRN N/A 09/28/16 14:15 10/28/16 14:14 Heparin Sodium (Porcine) (Heparin Sq 5000 Unit/0.5ml) 5,000 unit Q8 SQ 09/28/16 22:00 10/28/16 21:59 09/30/16 06:12 5,000 UNIT Sodium Chloride 1,000 ml @ 125 mls/hr Q8H IV 09/28/16 14:02 10/28/16 14:01 09/30/16 07:50 125 MLS/HR Acetaminophen (Tylenol Tab) 650 mg Q4H PRN PO 09/28/16 14:15 10/28/16 14:14 Ondansetron HCl (Zofran Inj) 4 mg Q6H PRN IV 09/28/16 14:15 10/28/16 14:14 09/28/16 18:29 4 MG Polyethylene (Miralax Powder Packet) 17 gm DAILY PO 09/29/16 09:00 10/29/16 08:59 09/30/16 07:47 17 GM Bisacodyl (Dulcolax Tab) 5 mg BID PO 09/28/16 21:00 10/28/16 20:59 09/30/16 07:49 5 MG Dipyridamole/ Aspirin (Aggrenox 200MG/ 25MG Cap) 1 cap BID PO 09/28/16 21:00 10/28/16 20:59 09/30/16 07:47 1 CAP Folic Acid (Folvite Tab) 1 mg BID PO 09/28/16 21:00 10/28/16 20:59 09/30/16 07:47 1 MG Cyanocobalamin (Vitamin B-12 Tab) 1,000 mcg QPM PO 09/28/16 21:00 10/28/16 20:59 09/29/16 20:41 1,000 MCG Diazepam (Valium Inj) 5 mg Q8 PRN IV 09/28/16 14:45 10/28/16 14:44 Meclizine HCl (Antivert Tab) 25 mg Q8 PRN PO 09/28/16 14:45 10/28/16 14:44 09/29/16 08:12 25 MG Miscellaneous (Iv Fluids Completed) 1 ea PRN PRN N/A 09/28/16 15:15 09/28/17 15:14 Pravastatin Sodium (Pravachol Tab) 10 mg HS PO 09/28/16 21:00 10/28/16 20:59 09/29/16 20:41 10 MG Ioversol (Optiray 320) 125 ml UD PRN IV 09/29/16 10:45 10/03/16 10:44 Impression This is a 86-year-old male with a 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 Per my review of the imaging it appears the patient has extended his previous stroke (which sometimes can happen after a stroke when at risk tissue around the previous stroke is unable to keep up with perfusion demand.). I do not think that the patient has had a new ischemic vascular territory stroke. In addition this week and the patient also has sign of increased brain edema secondary from his stroke. Known stroke risk factors include dyslipidemia, hyper-homocystinemia, and hypertension. Plan Continue IV fluids until brain edema has stabilized. I have ordered a repeat CT of the head to follow-up brain edema. We'll need to continue to observe the patient in hospital until brain edema has stabilized. If any decline in patient's neurological status, would recommend transfer to [facility] (would recommend neurology stroke service ) in the event that he needs neurosurgical intervention. Continue Aggrenox without change for secondary stroke prevention. Follow-up PT/OT and speech therapies for discharge planning. Blood pressure recommendations while in hospital 175/95-150/80 Stroke risk factor modifications and recommendations: Blood pressure recommendations for the first month post hospital discharge 150/ 90-130/80, and after that blood pressure recommendations 130/80-110/70 Total cholesterol goal 100- 200 and LDL goal less than 100 Hemoglobin A1c goal less than 7 Encourage cardiovascular exercise at least 3 times a week for 30 minutes. Resume teletypesetter monitor as an outpatient to rule out paroxysmal A. fib Follow-up in neurology clinic for post stroke hospital follow-up. (Should already have an appointment in October) If there is any questions or concerns, feel free to call/page me.
--- NOTE | 2016-09-30 12:03 | DIAGNOSTIC IMAGING REPORT ---
CT HEAD WITHOUT CONTRAST (CT) CLINICAL HISTORY: Stroke. Intracerebral edema. COMPARISON STUDY: CT scan dated 09/28/2016, MRI the brain dated 09/28/2016 TECHNIQUE: Axial CT of the brain is performed from the vertex to the skull base. IV contrast was not administered for this examination. A dose lowering technique was utilized adhering to the principles of ALARA. CT DOSE: 614.27 mGy.cm FINDINGS: There is a large posterior fossa infarct with involvement of the entire inferior aspect of the left cerebellar hemisphere, as well as a small portion of the right cerebellar hemisphere. There is mild mass effect on the davin. Medullary hypodensity, may be artifactual. There is no evidence of acute hemorrhage. There are minor white matter hypodensities likely on a small vessel basis. There is no evidence of pathologic ventricular dilatation. There is no evidence of acute sinusitis IMPRESSION: Large subacute left cerebellar infarct. There is also a suspected infarct involving the right infrahilar posterior cerebellar hemisphere. There is mild mass effect on the davin which appears slightly increased when compared the prior study. There is no evidence of acute hemorrhage. There is no evidence of hydrocephalus. Electronically signed by: Trip Roach M.D. 09/30/2016 12:01 PM Dictated Date/Time: 09/30/2016 11:57 AM
[2016-09-30] MEDS ORDERED: [UNRECOGNIZED DRUG - CODE] IV (16:53)
[2016-09-30] MEDS ORDERED: ZFRI4 IV (16:53)
[2016-09-30] MEDS ORDERED: ANT25 PO (16:53)
[2016-09-30] MEDS ORDERED: DLC5 PO (16:53)
[2016-09-30] MEDS ORDERED: FLV1 PO (16:53)
[2016-09-30] MEDS ORDERED: VTMB12 PO (16:53)
[2016-09-30] MEDS ORDERED: MRLP17 PO (16:53)
--- NOTE | 2016-09-30 16:58 | Discharge Instructions ---
Discharge Instructions Date of Service Sep 30, 2016. Admission Reason for Admission: Intractable Nausea And Vomiting Discharge Discharge Diagnosis / Problem: Left cerebellar infarct Discharge Goals Goal(s): Improve function Activity Recommendations Activity Limitations: per Instructions/Follow-up section . Instructions / Follow-Up Instructions / Follow-Up Risk Factors for Stroke: You can reduce your chances of stroke by working with your medical provider to adopt a healthy lifestyle. Some specific ways to lower your chance of stroke are: * If you are a smoker, now is the time to stop smoking cigarettes * If you are diabetic, improve the control of your blood sugars * Avoid excessive amounts of alcohol * Control high blood pressure * Lose weight if you are overweight * Be sure to lead an active lifestyle * Eat a healthy diet low in salt, cholesterol and fat You should know about other risk factors for stroke that you are unable to control. These include: * Age 55 years or older * Male gender * Certain racial groups: , or / * Family History of Stroke, Mini stroke or Heart Attack * Sickle Cell Disease Follow Up: It is important for you to keep your follow up appointments with your medical provider. Current Hospital Diet Patient's current hospital diet: AHA Diet (Heart Healthy) Discharge Diet Recommended Diet: AHA Diet (Heart Healthy) Pending Studies Studies pending at discharge: no Laboratory Results Hemoglobin A1c Test 09/24/16 15:07 Range/Units Estimated Average Glucose 105 mg/dl Hemoglobin A1c 5.3 4.5-5.6 % Lipid Panel Test 09/25/16 05:08 Range/Units Triglycerides Level 136 0-150 mg/dl Cholesterol Level 140 0-200 mg/dl HDL Cholesterol 39 mg/dl Cholesterol/HDL Ratio 3.6 LDL Cholesterol, Calculated 74 mg/dl Medical Emergencies . Who to Call and When: Medical Emergencies: Call 911 immediately if you experience any of the following warning signs and symptoms of Stroke: * Sudden numbness or weakness of the face, arm or leg, especially on one side of the body * Sudden confusion, trouble speaking or understanding * Sudden trouble seeing in one or both eyes * Sudden trouble walking, dizziness, loss of balance or coordination * Sudden severe headache with no cause Do not delay calling 911 if you experience any warning signs or symptoms of a stroke. Delay in seeking medical attention may affect what treatments can be given to you. . Non-Emergent Contact Non-Emergency issues call your: Primary Care Provider . Past History Medical & Surgical History: (1) L cerebella stroke, intractable nausea and vomiting (2) Prostate cancer (3) Colon polyp . "Provider Documentation" section prepared by Jere Mars. . Stroke Core Measures Reason no t-PA for Stroke: Treatment not indicated Reason no antithrom by day 2: Treatment provided - N/A Reason no antithrom at D/C: Treatment provided - N/A Reason no statin at D/C: Treatment provided - N/A Reason no anticoag w/a fib: Treatment not indicated VTE Core Measure Inpt VTE Proph given/why not?: Other Anticoagulation, T.E.D. Stockings, SCD's
[2016-09-30] MEDS: ONDANSETRON INJ 2 MG/ML 2 ML VIAL IV PRN (17:16)
--- NOTE | 2016-09-30 20:04 | Discharge Summary ---
Discharge Summary Date of Service Sep 30, 2016. Discharge Summary Admission Date: Sep 28, 2016 at 17:29 Discharge Date: Sep 30, 2016 Discharge Disposition: Acute care facility Principal Diagnosis: left cerebellar infarct Immunizations: Have You Had Influenza Vaccine: Yes History of Tetanus Vaccine?: Yes History of Pneumococcal: No History of Hepatitis B Vaccine: Yes Medication Reconciliation New Medications: Bisacodyl (Bisacodyl EC) 5 Mg Tabec 5 MG PO BID for 30 Days Cyanocobalamin (Vitamin B-12) 500 Mcg Tab 1000 MCG PO QPM for 30 Days, TAB Diazepam (Diazepam) 5 Mg/Ml Inj 5 MG IV Q8 PRN for nausea for 3 Days Folic Acid (Folic Acid) 1 Mg Tab 1 MG PO BID for 30 Days, #60 TAB Meclizine HCl (Meclizine HCl) 25 Mg Tab 25 MG PO Q8 PRN for nausea, vertigo for 30 Days, #90 TAB Ondansetron (Ondansetron Hcl) 2 Mg/Ml Inj 4 MG IV Q6H PRN for Nausea for 30 Days Polyethylene (Miralax) 17 Gm Pow 17 GM PO DAILY for 30 Days Continued Medications: Dipyridamole/Aspirin (Aggrenox 25-200 mg) 1 Cap Cap 1 CAP PO BID for 30 Days, #60 CAP 5 Refills Pravastatin Sodium (Pravachol) 20 Mg Tab 0.5 TAB PO DAILY for 30 Days, #15 TAB 5 Refills Discontinued Medications: Calcium/Vitamin D (Os-Kapil 500 Plus D) Tab 1 TAB PO QAM, TAB Cholecalciferol (Vitamin D3) 1,000 Unit Tab 1000 UNITS PO QPM for 90 Days, TAB 3 Refills Coenzyme Q10 (Ubidecarenone) (Coq-10) 100 Mg Cap 1 CAP PO QPM Cyanocobalamin (Vitamin B12) 1,000 Mcg Tab 1000 MCG PO QPM Efinaconazole (Jublia) 10 % Veronica 1 DOSE TOP PRN Fish Oil (Brule-3) 1 Ea Cap 1 CAP PO QPM, CAP Folic Acid (Folvite) 1 Mg Tab 1 MG PO BID, TAB Hospital Course Hx of Left cerebellar infarct 09/24/16 Neurology note reviewed no new findings on MRI and CTA of the head shows no aneurysm - Continue Aggrenox 1 capsule BID - Pravastatin 20 mg HS Q2D changed to 10 mg HS during last admission - PT /OT evals - Lipids and A1C in range - Follow CBC and PRP Patient was followed clinically and with serial CAT scans. On September 30 repeat CAT scan of the head showed a large subacute left cerebellar infarct. There was also suspected infarct involving the right infrahilar posteriors so cerebellar hemisphere. There is also mild mass effect on the davin which appears slightly increased when compared to prior study. There is no evidence of acute hemorrhage no evidence of hydrocephalus. The case was discussed with Dr. Berman from neurology and a decision was made to transfer the patient to [facility] for the possibility of neurosurgical intervention if needed. Case was discussed with Dr. Fish from neurosurgery who agreed to accept the patient to the neurosurgical intensive care unit at [facility]. The patient is transferred in stable condition by ALS ambulance to [facility]. The above was discussed with the patient's who is in agreement with the therapy as described above. Diastolic CHF - ECHO 09/25/16 showed grade I diastolic dysfunction with mild aortic valve sclerosis without stenosisi, trace MR, mild ID, trace TR. Positive saline contrast study suggestive of interatrial shunt, suspect PFO. Possible atrial septal aneurysm CAD s/p UT with stents x 2 in 2002 - Follow with Dr. Reza as an outpatient - Plavix changed to Aggrenox per neurology recommendations - Continue Pravastatin - Neurology recommended Holter monitor at time of discharge as an outpatient to rule out paroxysmal A. fib, and consider 30-day cardiac event monitor if Holter monitor is unremarkable - may need cardiology consultation History of right radical colectomy and ileocecal anastomosis - Completed 09/20/2015. 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 He has taken some miralax but hasn't helped. - Will start on miralax daily, dulcolax BID History of prostate carcinoma - s/p XRT therapy in October 2013 x 2 cycles and Lupron therapy - follow with Dr. Masters and Dr. Colmenares Hyperlipidemia w/ intolerance to rosuvastatin and simvastatin - Patient has significant allergies to rosuvastatin and simvastatin as noted above. - Continue pravastatin 10 mg daily at bedtime Homocystinemia -Continue folic acid and B12 DVT ppx: Heparin 5000 units SQ q8 hrs, DREW and SCDs Code Status: LEVEL I, FULL Disposition: Patient from home, lives with , PT OT evaluations, likely able to return home once medically cleared. Level of Care Telemetry Resuscitation Status FULL RESUSCITATION VTE Prophylaxis VTE Risk Assessment Done? Y/N: Yes Risk Level: Low Given or contraindicated: Other Anticoagulation, T.E.D. Stockings, SCD's Total Time Spent: Greater than 30 minutes This includes examination of the patient, discharge planning, medication reconciliation, and communication with other providers. Discharge Instructions Please refer to the electronic Patient Visit Report (Discharge Instructions) for additional information.
== END 2016-09-30 18:05 | disposition short-term general hospital (02) | DRG 64 ==
LOC: EDBD 11:06 → C.EDC 11:08 → C.MED 14:59 → ENRESERV 15:09 → OBSVTOIN 17:29
PROVIDERS: ADMIT Family Medicine; ATTEND Family Medicine
DX: I63.531 Cerebral infarction due to unspecified occlusion or stenosis of right posterior cerebral artery (principal); G93.6 Cerebral edema; I50.30 Unspecified diastolic (congestive) heart failure; I25.2 Old myocardial infarction; C61 Malignant neoplasm of prostate; Z82.49 Family history of ischemic heart disease and other diseases of the circulatory system; Z92.3 Personal history of irradiation; I25.10 Atherosclerotic heart disease of native coronary artery without angina pectoris; Z86.73 Personal history of transient ischemic attack (TIA), and cerebral infarction without residual deficits; K59.00 Constipation, unspecified; E78.5 Hyperlipidemia, unspecified

== ENCOUNTER → 2016-11-01 | Outpatient (CLI) | payer BC ==
[~2016-11-01] MED LIST changes: +ANT25 PO; -CALC500C70 PO; -CHOL1000 PO; -COEN1CAP46 PO; -CYAN100020 PO; +DLC5 PO; -EFIN1SOL TOP; +FLV1 PO; -FOLI1TAB7 PO; +MRLP17 PO; -OMEG10007 PO; +VTMB12 PO; +ZFRI4 IV; +[UNRECOGNIZED DRUG - CODE] IV
--- NOTE | 2016-11-01 15:28 | DIAGNOSTIC IMAGING REPORT ---
HEAD CT NONCONTRAST CT DOSE: 614.27 mGy.cm HISTORY: I63.9 Cerebellar stroke, [id number] Cerebral brain hemorrhage TECHNIQUE: Multiaxial CT images of the head were performed without the use of intravenous contrast. Automated exposure control was utilized for this study. A dose lowering technique was utilized adhering to the principles of ALARA. Comparison: Head CT 09/30/2016. Findings: The paranasal sinuses and mastoid air cells are clear. No mass, hematoma, midline shift. The ventricles are normal in size. Expected evolution of the bilateral cerebellar infarcts, left greater than right, which now demonstrate encephalomalacia. There is no significant mass effect along the fourth ventricle. No acute infarcts identified. Impression: Expected evolution of the bilateral cerebellar infarcts, left greater than right, which now demonstrate encephalomalacia. The mass effect along the fourth ventricle/davin has resolved. No intracranial hemorrhage. Electronically signed by: Taurus Savage M.D. 11/01/2016 3:27 PM Dictated Date/Time: 11/01/2016 3:23 PM
== END | disposition home or self-care (01) ==
LOC: C.CTS 13:37
PROVIDERS: ATTEND Psychiatry & Neurology Neurology
DX: I61.9 Nontraumatic intracerebral hemorrhage, unspecified (principal); I63.9 Cerebral infarction, unspecified

== ENCOUNTER → 2017-03-15 | Outpatient (CLI) | payer BC ==
[2017-03-15 11:12] LABS: ALBUMIN 3.4 gm/dl (3.4-5.0); BLOOD UREA NITROGEN 18 mg/dl (7-18); CALCIUM 8.3 mg/dl (8.5-10.1); CARBON DIOXIDE 30 mmol/L (21-32); CREATININE 1.19 mg/dl (0.60-1.40); GLUCOSE 96 mg/dl (70-99); POTASSIUM 4.1 mmol/L (3.5-5.1); SODIUM 138 mmol/L (136-145); TOTAL PROTEIN 6.8 gm/dl (6.4-8.2)
[2017-03-15 11:13] LABS: BASO % 0.4 %; BASO ABS # 0.02 K/uL (0-0.2); EOS % 3.6 %; EOS ABS # 0.19 K/uL (0-0.5); HEMATOCRIT 43.9 % (42-52); HEMOGLOBIN 15.3 g/dL (14.0-18.0); IG# 0.01 K/uL (0.00-0.02); LYMPH % 17.7 %; LYMPH ABS # 0.93 K/uL (1.2-3.4); MEAN CELL VOLUME 99.8 fL (80-100); MEAN CORPUSCULAR HEMOGLOBIN 34.8 pg (25-34); MEAN CORPUSCULAR HGB CONC 34.9 g/dl (32-36); MEAN PLATELET VOLUME 9.7 fL (7.4-10.4); MONO % 13.2 %; MONO ABS # 0.69 K/uL (0.11-0.59); NEUT % 64.9 %; PLATELET COUNT 189 K/uL (130-400); RED CELL DISTRIBUTION WIDTH CV 13.2 % (11.5-14.5); RED CELL DISTRIBUTION WIDTH SD 47.9 fL (36.4-46.3); WHITE BLOOD COUNT 5.24 K/uL (4.8-10.8)
[2017-03-15 11:25] LABS: ALKALINE PHOSPHATASE 67 U/L (45-117); ALT/SGPT 28 U/L (12-78); AST/SGOT 18 U/L (15-37); CHOLESTEROL 136 mg/dl (0-200); LDL CHOLESTEROL CALCULATED 63 mg/dl
== END | disposition home or self-care (01) ==
LOC: C.LABBC 08:58
PROVIDERS: ATTEND Urology
DX: E78.00 Pure hypercholesterolemia, unspecified (principal); E72.11 Homocystinuria; K62.7 Radiation proctitis; I25.10 Atherosclerotic heart disease of native coronary artery without angina pectoris; C61 Malignant neoplasm of prostate

== ENCOUNTER → 2017-03-19 | Outpatient (CLI) | payer BC ==
[~2017-03-19] MED LIST changes: +APIX1TAB3 PO; +CALC500C70 PO; +CHOL1000 PO; +CLOP1TAB15 PO; +EFIN1SOL TOP; +FOLI1TAB8 PO; +PSYL48.59 PO
[2017-03-19 14:07] VITALS: BP 122/62; PULSE 51; TEMP 36.6; O2SAT 95
--- NOTE | 2017-03-20 08:53 | Radiation Oncology Follow-Up ---
Radiation Oncology Follow-Up Date of Visit Mar 19, 2017. Reason For Visit Annual follow-up Radiation Completion Date finished IMRT / IGRT 12-15-2013 Diagnosis (1) Prostate cancer Status: Resolved Onset Date: 04/28/2013 Permanent Comment: Finding of abnormal digital rectal exam, nodule on the right Active surveillance with slowly rising PSA Status post ultrasound-guided biopsy revealing adenocarcinoma [employer] 3+3 and 3+4 Hormonal suppression four-month injection given Status post completion of radiation therapy with IMRT/IGRT completed 12/15/2013 Last Edited By: Blanche Dhaliwal on July 16, 2014 13:14 History of Present Illness Mr. Tomas is a 86-year-old gentleman who had been under the care of Dr. Choi. Digital rectal exam has shown a palpable abnormality in the right side of the prostate. PSAs have been taken in the past. We have a PSA report from January 03, 2012 elevated at 5.43. This was repeated on July 01, 2012 and remained elevated at 4.76. The patient was treated with a course of prophylactic antibiotics and did respond with his PSA on July 11, 2012 decreasing to 3.61. This was repeated on October 13, 2012 at 3.78. The patient chose to continue with active surveillance. On January 27, 2013, however, a repeat PSA was increased to 5.52. With that subsequent rise, the patient was seen by Dr. Drew on March 25, 2013. His examination confirmed a nodule in the right lobe of the prostate. Because of these findings, a prostate biopsy was scheduled and carried out. On April 28, 2013 the patient underwent ultrasound-guided biopsies. Two biopsies were taken from the left and right base, left and right mid, and right apex with one biopsy from the left apex, left anterior, and right anterior. His estimated prostate volume was 40 grams. Biopsies from the left base, left mid, left apex, and left anterior were all benign. Biopsies from the right base were positive in 2/2 biopsies with [employer] Grade 3 + 4 involving 20% and 10% of the core tissue sample respectfully with a Kelly pattern 4 representing 5% of the total tumor volume. No perineural invasion was identified. Two of two biopsies from the right mid gland revealed an adenocarcinoma, [employer] Grade 3 + 4 involving 25% and 5% of the core tissue samples respectfully. The [employer] pattern 4 component was 5% with no perineural invasion identified. Two of two biopsies from the right apex revealed an adenocarcinoma, [employer] Grade 3 + 3 involving 20% and 5% of the core tissue samples respectfully with no perineural invasion identified. The right anterior biopsy was negative. A total of 6/ biopsies were positive. Case [id number]. The patient returned to discuss these findings with Dr. Drew on May 05, 2013. Dr. Drew discussed potential treatment options. All options were reviewed And ultimately he made the decision to undergo treatment with IMRT/IGRT. There had been discussion of a protocol study but he did not qualify due to his inability to undergo a seed implant. He is on an aspirin daily and this could not be discontinued in order to have the implant. He therefore completed treatment with IMRT/IGRT. Interim History He is stable from urinary standpoint his AUA score was 10. Last year he gave a score of 6. He completed and expanded prostate cancer index composite for clinical practice and gave a score of 2 of 12 and urinary incontinence symptoms. He gave a score of 4 of 12 urinary irritation symptoms. He gave a score of 0 12 and bowel symptoms. He gave a score of 7 of 12 and sexual symptoms. He gave a score of 5 of 12 and hormonal vitality symptoms. His total was 18 of 60. He has been diagnosed with radiation proctitis. He has intermittent bleeding with bowel movements. This is a very small amount. It is seen on the toilet tissue. Occasionally is seen on the stool. Today he presented with a maternal of his health history over the past year. 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 He has had very little motor or sensory deficits. He does have changes in his balance and vitality. Because of the intermittent bleeding he did have a colonoscopy in August. This was performed by Dr. Thomas. There were changes of radiation proctitis and internal hemorrhoids. He is been using Metamucil 2 teaspoons daily. He does find that doing this has decreased the amount of episodes of bleeding. He is being followed closely by [facility]. He has undergoing rehabilitation following the CVAs. He takes 2 tests on a weekly basis. This is to follow for improvement in his mental cognitive ability. He is now on Plavix. Allergies Coded Allergies: Simvastatin (Verified Allergy, Unknown, MAJOR CRAMPING, 09/28/16) Rosuvastatin (Verified Adverse Reaction, Severe, SPASMS,CRAMPING,ALTERED MENTAL STATUS, 09/28/16) Aspirin (Verified Adverse Reaction, Mild, UNCOATED FULL-STR ASA-GI UPSET, 09/28/16) Home Medications Scheduled Apixaban (Eliquis), 5 MG PO BID Calcium/Vitamin D (Os-Kapil 500 Plus D), 1 TAB PO DAILY Cholecalciferol (Vitamin D3), 1 TAB PO DAILY Clopidogrel (Plavix), 75 MG PO DAILY Efinaconazole (Jublia), 2 DROPS TOP UD Folic Acid (Folvite), 1 TAB PO DAILY Pravastatin Sodium (Pravachol), 0.5 TAB PO DAILY Psyllium (Metamucil), 2 TSP PO HS Review of Systems Gastrointestinal: Symptoms: Rectal Bleeding GI Comments: smear of rectal bleeding 1 to 2 times a week, started Oral: Symptoms: No Problems Respiratory: Symptoms: WNL Urinary: Symptoms: Nocturia, Frequency Comments: voids every 2 - 3 hrs during the day and at night 2-5 times , urgency Skin: Symptoms: No Problems Physical Exam Vital Signs Date Time Temp Pulse Resp B/P (MAP) Pulse Ox O2 Delivery O2 Flow Rate FiO2 03/19/17 14:07 36.6 51 18 122/62 95 Fatigue: None General Appearance: no apparent distress Eyes: normal inspection, EOMI ENT: normal ENT inspection, hearing grossly normal Respiratory/Chest: lungs clear, no respiratory distress, no accessory muscle use Cardiovascular: regular rate, rhythm, no gallop, no murmur Abdomen: non tender, soft, no organomegaly Anal / Rectum: Normal sphincter tone. He has external and internal hemorrhoids. There were no rectal masses no rectal bleeding. There are no nodules on the prostate. Extremities: no pedal edema Neurologic/Psychiatric: no motor/sensory deficits, alert, normal mood/affect Skin: warm/dry Pain Management Patient Reports Pain: Yes Side: Bilateral Pain Location: back Patient Preferred Pain Scale: 0 - 10 Initial Pain Intensity: 5.5 Pain Management Plan Pain management will be through the primary care physician. Laboratory Laboratory Results: were reviewed, and pertinent findings noted below Laboratory Comments: PSAs were reviewed with the patient. 08/09/2016 PSA was 0.120. He had a PSA on 03/15/2017 that was 0.122. Pathology Pathology Results: not applicable Imaging Imaging Studies: not applicable Assessment & Plan Plan: Continue regular follow-up with his primary care physician, Dr. Colmenares, and the [facility]. It is recommended that he continue to have the PSAs checked once a year. We asked him to return to our office in 1 year. He is currently stable in regards to the radiation proctitis. He may call our office if he has any questions or concerns about increasing of bleeding. In the past we have discussed possible argon laser therapy. Total Time In Follow-Up I spent 25 minutes speaking to the patient and performing examination. I spent 15 minutes reviewing information in completing this note. Copy To Rosalba Carnes DO; Raheem Colmenares M.D.; José Miguel Reza M.D.
== END | disposition home or self-care (01) ==
LOC: C.ONC 13:47
PROVIDERS: ATTEND Physician Assistant Medical
DX: Z08 Encounter for follow-up examination after completed treatment for malignant neoplasm (principal); Z92.3 Personal history of irradiation; Z85.46 Personal history of malignant neoplasm of prostate

== ENCOUNTER → 2017-10-02 | Outpatient (CLI) | payer BC ==
[~2017-10-02] MED LIST changes: -AGG PO; -ANT25 PO; -DLC5 PO; -FLV1 PO; -MRLP17 PO; -VTMB12 PO; -ZFRI4 IV; -[UNRECOGNIZED DRUG - CODE] IV
== END | disposition home or self-care (01) ==
LOC: C.LABBC 08:36
PROVIDERS: ATTEND Urology
DX: I25.10 Atherosclerotic heart disease of native coronary artery without angina pectoris (principal); C61 Malignant neoplasm of prostate; R93.8 Abnormal findings on diagnostic imaging of other specified body structures

== ENCOUNTER → 2017-10-24 | Outpatient (CLI) | payer BC ==
[2017-10-24 10:50] LABS: HEMATOCRIT 45.1 % (42-52); HEMOGLOBIN 15.8 g/dL (14.0-18.0); MEAN CELL VOLUME 98.9 fL (80-100); MEAN CORPUSCULAR HEMOGLOBIN 34.6 pg (25-34); MEAN PLATELET VOLUME 9.7 fL (7.4-10.4); PLATELET COUNT 216 K/uL (130-400); RED CELL DISTRIBUTION WIDTH CV 13.4 % (11.5-14.5); RED CELL DISTRIBUTION WIDTH SD 48.4 fL (36.4-46.3); WHITE BLOOD COUNT 4.84 K/uL (4.8-10.8)
== END | disposition home or self-care (01) ==
LOC: C.LABBC 08:44
PROVIDERS: ATTEND Urology
DX: C61 Malignant neoplasm of prostate (principal); R94.6 Abnormal results of thyroid function studies; I25.10 Atherosclerotic heart disease of native coronary artery without angina pectoris; C18.0 Malignant neoplasm of cecum; R93.8 Abnormal findings on diagnostic imaging of other specified body structures